=== PATIENT | female | born 1995 | race Caucasian/White ===

== ENCOUNTER 2016-05-12 13:37 | Emergency (ER) | payer MEDICAID, SELFPAY ==
[~2016-05-12 13:37] MED LIST: BUSP5TA PO; ERRI0.35 PO; ESCI10TA2 PO; GABA300C3 PO; HYDR-4274 PO; LEXA1TAB PO; No Home Meds; OMEP20CA3 PO; PRIL40CA PO; PROM25TA PO; RISP1TAB41 PO; TRAZ50TA4 PO; TRAZO50TA PO; ZANTTAB PO
--- NOTE | 2016-05-12 14:38 | ECGEPIP ---
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
[2016-05-12 15:16] LABS: MEAN CORPUSCULAR HEMOGLOBIN 28.3 pg (27.0-33.0); MEAN CORPUSCULAR HGB CONC 33.3 g/dl (32.0-36.5); MEAN CORPUSCULAR VOLUME 84.9 fl (80.0-96.0); RED CELL DISTRIBUTION WIDTH 13.4 % (11.5-14.5); WHITE BLOOD COUNT 8.3 K/mm3 (4.0-10.0)
[2016-05-12 15:34] LABS: CONTROL LINE HCG INT CTR LINE PRESENT
[2016-05-12 15:49] LABS: AMPHETAMINES LEVEL URINE POSITIVE (NEGATIVE); BENZODIAZEPINES URINE NEGATIVE (NEGATIVE); COCAINE METABOLITE URINE POSITIVE (NEGATIVE); CONTROL LINE INT CTR LINE PRESENT; METHADONE URINE NEGATIVE (NEGATIVE); OPIATES URINE POSITIVE (NEGATIVE); TRICYCLIC ANTIDEPRESS URINE NEGATIVE (NEGATIVE)
[2016-05-12 15:51] LABS: CONTROL LINE UCG INT CTR LINE PRESENT
[2016-05-12 15:53] LABS: ALBUMIN 3.5 GM/DL (3.2-5.2); ALBUMIN/GLOBULIN RATIO 1.06 (1.00-1.93); ALKALINE PHOSPHATASE 74 U/L (45-117); ALT/SGPT 19 U/L (12-78); ANION GAP 9 MEQ/L (8-16); AST/SGOT 27 U/L (15-37); BILIRUBIN,DIRECT 0.1 MG/DL (0.0-0.2); BILIRUBIN,TOTAL 0.5 MG/DL (0.2-1.0); BLOOD UREA NITROGEN 12 MG/DL (7-18); CARBON DIOXIDE LEVEL 24 MEQ/L (21-32); CHLORIDE LEVEL 105 MEQ/L (98-107); CREATININE FOR GFR 0.67 MG/DL (0.55-1.02); GLUCOSE, FASTING 73 MG/DL (70-105); POTASSIUM SERUM 3.9 MEQ/L (3.5-5.1); SODIUM LEVEL 138 MEQ/L (136-145); TOTAL PROTEIN 6.8 GM/DL (6.4-8.2)
--- NOTE | 2016-05-12 19:55 | EDDOCDS ---
Physician Documentation [facility] Name: Laura Velazquez Age: 21 yrs Sex: Female : 1995 Arrival Date: 05/12/2016 Time: 13:37 Bed 2 Private MD: Disposition: 05/12/16 19:38 Discharged to Home/Self Care. Impression: Cocaine abuse, Opioid abuse, Other stimulant abuse - amphetamine. - Condition is Stable. - Medication Reconciliation, Local Pharmacy Hours form. - Follow up: Referral list, As provided by PFS; When: Call to arrange an appointment; Reason: To establish care. - Problem is chronic. - Symptoms are unchanged. Historical: - Allergies: no known allergies; - Home Meds: 1. none - PMHx: Bipolar disorder; Substance Abuse; - PSHx: none; - Social history: Smoking status: Patient uses tobacco products, current some day smoker. No barriers to communication noted, The patient speaks fluent Turkmen. - Family history: Not pertinent. - : The pt / caregiver states he / she is not on anticoagulants. Home medication list is obtained from the patient. - Exposure Risk Screening:: None identified. 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 jc4 Vital Signs: 13:54 Pulse 69 MON; Pulse Ox 99% ; pml 13:54 BP 98 / 57 (auto/); pml 13:55 BP 98 / 57; Pulse 72; Resp 18; Temp 98.2(TE); Pulse Ox 100% on R/A; Weight 49.9 kg / ct3 110.01 lbs (M); 13:59 Pulse 76 MON; Pulse Ox 100% ; pml 13:59 BP 92 / 52 (auto/); pml 14:15 Pulse 75 MON; Pulse Ox 99% ; pml 14:15 BP 96 / 55 (auto/); pml 14:30 Pulse 75 MON; Pulse Ox 98% ; pml 14:30 BP 97 / 55 (auto/); pml 14:45 Pulse 75 MON; Pulse Ox 98% ; pml 14:45 BP 94 / 50 (auto/); pml 15:09 Pulse 75 MON; Pulse Ox 99% ; pml 15:09 BP 92 / 48 (auto/); pml 15:15 Pulse 76 MON; Pulse Ox 99% ; pml 15:15 BP 89 / 50 (auto/); pml 15:30 BP 93 / 54 (auto/); pml 15:32 Pulse 72 MON; Pulse Ox 100% ; pml 15:45 Pulse 73 MON; Pulse Ox 100% ; pml 15:45 BP 92 / 54 (auto/); pml 16:00 Pulse 74 MON; Pulse Ox 100% ; pml 16:00 BP 91 / 51 (auto/); pml 16:15 Pulse 74 MON; Pulse Ox 100% ; pml 16:15 BP 95 / 52 (auto/); pml 16:29 Pulse 73 MON; Pulse Ox 96% ; pml 16:30 BP 93 / 51 (auto/); pml 16:45 Pulse 78 MON; Pulse Ox 98% ; pml 16:45 BP 97 / 48 (auto/); pml 17:00 Pulse 81 MON; Pulse Ox 97% ; pml 17:00 BP 98 / 51 (auto/); pml 17:15 Pulse 87 MON; Pulse Ox 98% ; pml 17:15 BP 107 / 55 (auto/); pml 17:30 Pulse 85 MON; Pulse Ox 96% ; pml 17:30 BP 109 / 55 (auto/); pml 17:45 Pulse 84 MON; Pulse Ox 96% ; pml 17:45 BP 102 / 51 (auto/); pml 19:40 BP 100 / 48; Pulse 65; Resp 18; Temp 98.1(TE); Pulse Ox 97% on R/A; Pain 0/10; sindhu MDM: 13:47 Consult PFS/PSA/Wire Stitcher Operator ordered. sd1 13:47 Consult PFS/PSA/Wire Stitcher Operator: Patient's case requires discussion with on-call sd1 Psychiatrist ordered. 13:47 PSA/PFS to call Nursing Tag Clerk, to enter patient data on [place] Safe Act if patient sd1 involuntarily admitted or transferred for SI or HI ordered. 13:47 Cold Header/Pulse Ox/q 15 min VS ordered. sd1 13:47 Confirm accurate psychiatric medication list and times of last dosage ordered. sd1 13:47 Detain Pt Until Medically/PFS Cleared ordered. sd1 13:47 IV Saline Lock ordered. sd1 13:47 NS 0.9% 1000 ml IV at 250 mL/hr continuous ordered. sd1 13:47 Acetaminophen Level Ordered. EDMS 13:47 Basic Metabolic Profile Ordered. EDMS 13:47 Complete Blood Count Ordered. EDMS 13:47 Drug Eval Toxicology ED Only Ordered. EDMS 13:47 Ethyl Alcohol (ethanol) Ordered. EDMS 13:47 HCG,Serum Qualitative Ordered. EDMS 13:48 Liver Profile Ordered. EDMS 13:48 Salicylate Level Ordered. EDMS 13:48 Thyroid Stimulating Hormone Ordered. EDMS 13:48 Creatine Phosphokinase Ordered. EDMS 13:48 ECG WITH READING ER PHYS+CARDIAG ordered. EDMS 14:27 Financial registration complete. mpb 14:31 [facility] Payment Agreement was scanned into [employer] and attached to record. mpb 15:31 UCG- In Lab Ordered. EDMS 15:51 Complete Blood Count Reviewed. sd1 15:51 HCG,Serum Qualitative Reviewed. sd1 15:51 EKG-ADULT Reviewed. sd1 15:53 Drug Eval Toxicology ED Only Reviewed. sd1 15:53 UCG- In Lab Reviewed. sd1 17:14 Acetaminophen Level Reviewed. sd1 17:14 Salicylate Level Reviewed. sd1 17:14 Creatine Phosphokinase Reviewed. sd1 17:14 Basic Metabolic Profile Reviewed. sd1 17:14 Ethyl Alcohol (ethanol) Reviewed. sd1 17:14 HCG,Serum Qualitative Reviewed. sd1 17:14 Liver Profile Reviewed. sd1 17:14 Thyroid Stimulating Hormone Reviewed. sd1 19:15 Consult PFS/PSA/Wire Stitcher Operator complete. jfb 19:15 Consult PFS/PSA/Wire Stitcher Operator: Patient's case requires discussion with on-call b Psychiatrist complete. 19:15 PSA/PFS to call Nursing Tag Clerk, to enter patient data [place] Safe [place] if patient jfb involuntarily admitted or transferred for SI or HI complete. Administered Medications: 13:53 Drug: NS 0.9% 1000 ml [sodium chloride 0.9 % intravenous solution] Route: IV; Rate: 250 ja5 mL/hr; Site: left antecubital; Signatures: Dispatcher [employer] EDMN Mariam Senior MD MD sd1 Lena Mchugh, PSA PSA jfb Grecia Flores RN RN jc4 Jazzy Ansari RN RN Ron Ferguson DO DO cs11 Ayleen Romeo RN RN ko2 Heriberto Acosta, Reg Reg mpb Di Melo RN5 The chart was reviewed and I authenticate all verbal orders and agree with the evaluation and treatment provided.Attachments: 14:31 [facility] Payment Agreement mpb MTDD
--- NOTE | 2016-05-12 19:55 | EDDOCDS ---
Nurse's Notes [facility] Name: Laura Velazquez Age: 21 yrs Sex: Female : 1995 Arrival Date: 05/12/2016 Time: 13:37 Bed 2 Private MD: Diagnosis: Cocaine abuse;Opioid abuse;Other stimulant abuse-amphetamine Presentation: 05/12 13:40 Presenting complaint: EMS states: that they were called to [facility] for jc4 patient. Allegedly patient was found slumped over at table. Presenting complaint: Patient states: "I'm just really tired and I haven't slept. I was at a friend's house" Denies any drug use today or yesterday. Suicide/Homicide risk assessment- Unable to assess, the patient has an altered level of consciousness. 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 Transition of care: patient was not received from another setting of care. Care prior to arrival: See EMS report. 13:40 Acuity: SILVIA Level 2 4 13:40 Method Of Arrival: Ambulance [facility] 19:52 Adult Sepsis Screening: The patient does not have new or worsening altered mentation. ko2 Patient's respiratory rate is less than 22. Systolic blood pressure is greater than 100. Patient has a qSOFA score of 0- Negative Sepsis Screen. Triage Assessment: 13:45 General: Appears distressed. Pain: Location: bilateral thighs. The patient is triaged jc4 at the bedside. See Assessment in Nurses Notes section of ED record. 19:54 Pt Declines HIV testing. 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 none - PMHx: Bipolar disorder; Substance Abuse; - PSHx: none; - Social history: Smoking status: Patient uses tobacco products, current some day smoker. No barriers to communication noted, The patient speaks fluent Greek. - Family history: Not pertinent. - : The pt / caregiver states he / she is not on anticoagulants. Home medication list is obtained from the patient. - Exposure Risk Screening:: None identified. Screenin:08 Screening information is obtained from the patient. Fall risk: At risk due to apparent pml chemical impairment. Assistance ADL's: requires no assistance with activities of daily living. Abuse/DV Screen: The patient / caregiver reports he/she is: not in a situation that causes fear, pain or injury. Nutritional screening: No deficits noted. Advance Directives: Currently, there is no health care proxy. home support is adequate. Assessment: 14:08 General: Appears slender, well groomed, Behavior is appropriate for age, cooperative, pml drowsy, flat. Pain: Location: right leg and left leg. Neurological: Level of Consciousness is listless, obeys commands, Oriented to person, place, time, Pupils are PERRLA, constricted. Cardiovascular: Capillary refill < 3 seconds Rhythm is sinus rhythm No ectopy. Respiratory: Airway is patent Respiratory effort is even, unlabored. GI: Abdomen is non- distended. Derm: Skin is pale, multiple sites across arms, thighs and hands of irritation and open wounds in various stages of healing. none appear infected, all approx 1-3cm in diameter, circular. multiple sites areas of tract stewart noted to bilateral arms and hands. 15:30 General: resting on stretcher, listless. resps unlabored, equal rise and fall. skin pml p/w/d. awakens to painful stimuli. 16:31 General: Appears well groomed, to be sleeping. Behavior is cooperative, drowsy. pml Neurological: Level of Consciousness is listless, obeys commands, Oriented to person, place, time. Cardiovascular: Capillary refill < 3 seconds Rhythm is sinus rhythm No ectopy. Respiratory: Airway is patent Respiratory effort is even, unlabored. Derm: Skin is pale. 17:51 General: resting on stretcher, eyes closed, sleeping, awakens to painful stimuli. resps pml unlabored, skin p/w/d. sinus rhythm without ectopy. . 18:49 General: Appears slender, Behavior is cooperative, drowsy. Neurological: Level of pml Consciousness is obeys commands, Oriented to person, place, time. Cardiovascular: Capillary refill < 3 seconds Rhythm is sinus rhythm No ectopy. Derm: Skin is pale. 19:33 General: Appears in no apparent distress, Behavior is appropriate for age, cooperative, ko2 drowsy, flat. Pain: Denies pain. Neurological: Level of Consciousness is awake, obeys commands. Respiratory: Airway is patent Respiratory effort is even, unlabored. Derm: Skin is pale. 19:51 General: Appears in no apparent distress, Behavior is cooperative. Neurological: Level ko2 of Consciousness is awake. Respiratory: Airway is patent Respiratory effort is even, unlabored. Derm: Skin is pale. Social Work Consult: 19:37 Social Work Note: Woke PT who was clearly startled and unsure of where she is. PT jfb denies memory of being in [facility] or being brought to ED. Last memory was she was walking down the street and she had already gotten hi. PT continues to state "This is crazy" having a hard time accepting what had happened. PT states that she has been working with [employer] and was going there tomorrow so she had already planned not to use anymore. PT denies SI/HI or hallucinations. Per PT's grandmother PT's parents have turned their back on her long ago and grandma has been the only one there for her. PT has been staying with her boyfriend who is much older but a healthy influence but they had an argument and PT went to grandmother's house. saw the signs that PT has used meth and called her out and PT ended up leaving. concerned for PT's drug use but denies that she has ever know her to be suicidal. Vital Signs: 13:54 Pulse 69 MON; Pulse Ox 99% ; pml 13:54 BP 98 / 57 (auto/); pml 13:55 BP 98 / 57; Pulse 72; Resp 18; Temp 98.2(TE); Pulse Ox 100% on R/A; Weight 49.9 kg (M); ct3 13:59 Pulse 76 MON; Pulse Ox 100% ; pml 13:59 BP 92 / 52 (auto/); pml 14:15 Pulse 75 MON; Pulse Ox 99% ; pml 14:15 BP 96 / 55 (auto/); pml 14:30 Pulse 75 MON; Pulse Ox 98% ; pml 14:30 BP 97 / 55 (auto/); pml 14:45 Pulse 75 MON; Pulse Ox 98% ; pml 14:45 BP 94 / 50 (auto/); pml 15:09 Pulse 75 MON; Pulse Ox 99% ; pml 15:09 BP 92 / 48 (auto/); pml 15:15 Pulse 76 MON; Pulse Ox 99% ; pml 15:15 BP 89 / 50 (auto/); pml 15:30 BP 93 / 54 (auto/); pml 15:32 Pulse 72 MON; Pulse Ox 100% ; pml 15:45 Pulse 73 MON; Pulse Ox 100% ; pml 15:45 BP 92 / 54 (auto/); pml 16:00 Pulse 74 MON; Pulse Ox 100% ; pml 16:00 BP 91 / 51 (auto/); pml 16:15 Pulse 74 MON; Pulse Ox 100% ; pml 16:15 BP 95 / 52 (auto/); pml 16:29 Pulse 73 MON; Pulse Ox 96% ; pml 16:30 BP 93 / 51 (auto/); pml 16:45 Pulse 78 MON; Pulse Ox 98% ; pml 16:45 BP 97 / 48 (auto/); pml 17:00 Pulse 81 MON; Pulse Ox 97% ; pml 17:00 BP 98 / 51 (auto/); pml 17:15 Pulse 87 MON; Pulse Ox 98% ; pml 17:15 BP 107 / 55 (auto/); pml 17:30 Pulse 85 MON; Pulse Ox 96% ; pml 17:30 BP 109 / 55 (auto/); pml 17:45 Pulse 84 MON; Pulse Ox 96% ; pml 17:45 BP 102 / 51 (auto/); pml 19:40 BP 100 / 48; Pulse 65; Resp 18; Temp 98.1(TE); Pulse Ox 97% on R/A; Pain 0/10; sindhu Vitals: 13:45 Log In Time N/A - ambulance arrival. jc4 16:[address] [facility] ED Course: 13:38 Patient visited by Martha Walden PCA. ar3 13:38 Patient moved to Waiting ar3 13:39 Jazzy Ansari RN is Primary Nurse. ar3 13:39 Mariam Senior MD is Attending Physician. sd1 13:39 Patient moved to 2 ar3 13:43 Triage Initiated jc4 13:46 Patient visited by Mariam Senior MD. sd1 13:50 Inserted saline lock: 18 gauge The patient tolerated the procedure well. done by Josh Ansari RN. 13:55 Patient has correct armband on for positive identification. Placed in gown. Placed in ct3 psych safe attire. Call light in reach. Side rails up X2. playground monitor on. Pulse ox on. NIBP on. 14:08 The patient / caregiver is instructed regarding the plan of care and ED course. pml 14:09 EKG done. (by ED staff). Reviewed by Mariam Senior MD. lr2 14:12 Patient visited by Jazzy Ansari RN. pml 14:31 [facility] Payment Agreement was scanned into [employer] and attached to record. mpb 14:47 EKG-ADULT Returned. EDMS 15:30 Patient visited by Jazzy Ansari RN. pml 16:32 Patient visited by Jazzy Ansari,HARITHA. pml 17:42 Patient visited by Henrietta Escamilla PCA. ct3 17:52 Patient visited by Jazzy Ansari,HARITHA. pml 18:49 Patient visited by Jazzy Ansari RN. pml 18:54 Attending Physician role handed off by Mariam Senior MD cs11 18:54 Ron Sandy DO is Attending Physician. cs11 19:33 Patient visited by Ayleen Romeo RN. ko2 19:34 Ayleen Romeo RN is Primary Nurse. ko2 19:34 Primary Nurse role handed off by Jazzy Ansari RN ko2 19:36 Referral list, As provided by PFS is Referral Physician. cs11 19:41 Patient visited by Donya Rudd PCA. sindhu 19:52 Discontinued lock intact, bleeding controlled, pressure dressing applied, No ko2 redness/swelling at site. No procedures done that require assistance. Administered Medications: 13:53 Drug: NS 0.9% 1000 ml [sodium chloride 0.9 % intravenous solution] Route: IV; Rate: 250 ja5 mL/hr; Site: left antecubital; RT: 17:40 ABG's drawn from left radial artery allens test done and positive pressure held for 5 rs5 minutes no bleeding noted pressure bandage applied specimen sent pt. tolerated well. Suctioned orally with [place] by respiratory therapist thin white sputum. Initial Med Neb Given as ordered Patient tolerated procedure well without adverse effect. Order Results: Lab Order: Acetaminophen Level; SPEC'M 05/12/16 15:06 Test: ACETAMINOPHEN LEVEL; Value: < 2.0; Range: 10.0-30.0; Abnormal: Below low normal; Units: UG/ML; Status: F Lab Order: Basic Metabolic Profile; SPEC'M 05/12/16 15:06 Test: GLUCOSE, FASTING; Value: 73; Range: 70-105; Units: MG/DL; Status: F Test: BLOOD UREA NITROGEN; Value: 12; Range: 7-18; Units: MG/DL; Status: F Test: CREATININE FOR GFR; Value: 0.67; Range: 0.55-1.02; Units: MG/DL; Status: F Test: SODIUM LEVEL; Value: 138; Range: 136-145; Units: MEQ/L; Status: F Test: POTASSIUM SERUM; Value: 3.9; Range: 3.5-5.1; Units: MEQ/L; Status: F Test: CHLORIDE LEVEL; Value: 105; Range: 98-107; Units: MEQ/L; Status: F Test: CARBON DIOXIDE LEVEL; Value: 24; Range: 21-32; Units: MEQ/L; Status: F Test: ANION GAP; Value: 9; Range: 8-16; Units: MEQ/L; Status: F Test: CALCIUM LEVEL; Value: 9.0; Range: 8.5-10.1; Units: MG/DL; Status: F Lab Order: Complete Blood Count; SPEC'M 05/12/16 15:06 Test: WHITE BLOOD COUNT; Value: 8.3; Range: 4.0-10.0; Units: K/mm3; Status: F Test: RED BLOOD COUNT; Value: 4.78; Range: 4.00-5.40; Units: M/mm3; Status: F Test: HEMOGLOBIN; Value: 13.5; Range: 12.0-16.0; Units: g/dl; Status: F Test: HEMATOCRIT; Value: 40.5; Range: 36.0-47.0; Units: %; Status: F Test: MEAN CORPUSCULAR VOLUME; Value: 84.9; Range: 80.0-96.0; Units: fl; Status: F Test: MEAN CORPUSCULAR HEMOGLOBIN; Value: 28.3; Range: 27.0-33.0; Units: pg; Status: F Test: MEAN CORPUSCULAR HGB CONC; Value: 33.3; Range: 32.0-36.5; Units: g/dl; Status: F Test: RED CELL DISTRIBUTION WIDTH; Value: 13.4; Range: 11.5-14.5; Units: %; Status: F Test: PLATELET COUNT, AUTOMATED; Value: 336; Range: 150-450; Units: k/mm3; Status: F Lab Order: Drug Eval Toxicology ED Only; SPEC'M 05/12/16 15:28 Test: AMPHETAMINES LEVEL URINE; Value: POSITIVE; Range: NEGATIVE; Abnormal: Above high normal; Status: F Test: BARBITURATES URINE; Value: NEGATIVE; Range: NEGATIVE; Status: F Test: BENZODIAZEPINES URINE; Value: NEGATIVE; Range: NEGATIVE; Status: F Test: CANNABINOIDS URINE; Value: NEGATIVE; Range: NEGATIVE; Status: F Test: COCAINE METABOLITE URINE; Value: POSITIVE; Range: NEGATIVE; Abnormal: Above high normal; Status: F Test: METHADONE URINE; Value: NEGATIVE; Range: NEGATIVE; Status: F Test: OPIATES URINE; Value: POSITIVE; Range: NEGATIVE; Abnormal: Above high normal; Status: F Test: TRICYCLIC ANTIDEPRESS URINE; Value: NEGATIVE; Range: NEGATIVE; Status: F Test Note: ; ALL PRESUMPTIVE POSITIVE FINDINGS ARE UNCONFIRMED NORMAL VALUES THRESHOLD IN NG/ML AMPHETAMINES 1000 METHAMPHETAMINES 1000 BARBITURATES 300 BENZODIAZEPINES 300 CANNABINOIDS (THC) 50 COCAINE METABOLITE 300 METHADONE 300 OPIATES 300 PHENCYCLIDINE 25 TRICYCLIC ANTIDEPRESSANTS 1000 RESULTS ARE FOR MEDICAL PURPOSES ONLY. ALL URINE SPECIMENS WILL BE SAVED FOR 3 DAYS. IF CONFIRMATION OF A PRESUMPTIVE POSTIVE SCREEN RESULT IS DESIRED, CALL CHEMISTRY ([phone]) AND REQUEST URINE TO BE SENT TO REFERENCE LAB. FOR A LIST OF CLOSELY RELATED COMPOUNDS PLEASE CALL THE LAB. Lab Order: Ethyl Alcohol (ethanol); SPEC'M 05/12/16 15:06 Test: ETHYL ALCOHOL (ETHANOL); Value: < 0.003; Range: 0.000-0.010; Units: %; Status: F Lab Order: HCG,Serum Qualitative; SPEC'M 05/12/16 15:06 Test: HCG, SERUM QUALITATIVE; Value: NEGATIVE; Range: NEGATIVE; Status: F Lab Order: Liver Profile; SPEC'M 05/12/16 15:06 Test: AST/SGOT; Value: 27; Range: 15-37; Units: U/L; Status: F Test: ALT/SGPT; Value: 19; Range: 12-78; Units: U/L; Status: F Test: ALKALINE PHOSPHATASE; Value: 74; Range: 45-117; Units: U/L; Status: F Test: BILIRUBIN,TOTAL; Value: 0.5; Range: 0.2-1.0; Units: MG/DL; Status: F Test: BILIRUBIN,DIRECT; Value: 0.1; Range: 0.0-0.2; Units: MG/DL; Status: F Test: TOTAL PROTEIN; Value: 6.8; Range: 6.4-8.2; Units: GM/DL; Status: F Test: ALBUMIN; Value: 3.5; Range: 3.2-5.2; Units: GM/DL; Status: F Test: ALBUMIN/GLOBULIN RATIO; Value: 1.06; Range: 1.00-1.93; Status: F Lab Order: Salicylate Level; SPEC' 05/12/16 15:06 Test: SALICYLATE LEVEL; Value: 2.2; Range: 5.0-30.0; Abnormal: Below low normal; Units: MG/DL; Status: F Lab Order: Thyroid Stimulating Hormone; SPEC' 05/12/16 15:06 Test: THYROID STIMULATING HORMONE; Value: 1.550; Range: 0.463-3.98; Units: uIU/ML; Status: F Lab Order: Creatine Phosphokinase; SPEC' 05/12/16 15:06 Test: CPK CREATINE PHOSPHOKINASE; Value: 233; Range: 26-192; Abnormal: Above high normal; Units: U/L; Status: F Lab Order: UCG- In Lab; SPEC' 05/12/16 15:28 Test: URINE PREG TEST; Value: NEGATIVE; Range: NEGATIVE; Status: F Radiology Order: EKG-ADULT Test: EKG-ADULT REASON FOR EXAMINATION: OD; Stationary ECG Study; [facility] - ED; ; Test Date: 2016-05-12; Pat Name: LAURA VELAZQUEZ Department:; Room: -; Gender: F Insole Presser: ct; : 1995 Requested By: Mariam Senior; Order Number: [id number] Reading MD: Alexander Cisneros; Measurements; Intervals [place]; Rate: 77 P: 67; PA: 151 QRS: 58; QRSD: 85 T: 50; QT: 431; QTc: 489; Interpretive Statements; SINUS RHYTHM; ; Electronically Signed On 05-12-2016 14:37:51 EST by Alexander Cisneros; Outcome: 19:38 Discharge ordered by Provider. cs11 19:52 Discharge Assessment: Patient awake, alert and oriented x 3. No cognitive and/or ko2 functional deficits noted. Patient verbalized understanding of disposition instructions. patient administered narcotics - no. The following High Risk Discharge criteria are identified: None. Discharged to home ambulatory, with family. Condition: stable. Discharge instructions given to patient, Instructed on discharge instructions, follow up and referral plans. Demonstrated understanding of instructions, Pt was receptive of discharge instructions/ teaching. Property sent home with patient. 19:54 No special radiology studies were completed. ko2 19:54 Patient left the ED. ko2 Signatures: Dispatcher [employer] EDMS Mariam Senior MD MD sd1 Win, Martha, FITNESS ASSISTANT FITNESS ASSISTANT ar3 Jeison, Lena, PSA PSA Grecia Khan, RN RN jc4 Donya Rudd, FITNESS ASSISTANT FITNESS ASSISTANT sindhu Francine, Henrietta, FITNESS ASSISTANT FITNESS ASSISTANT ct3 Shree Light,RT RT rs5 Jazzy Ansari,RN RN Ron Ferguson, DO cs11 Ayleen RomeoRN RN ko2 Heriberto Acosta, Reg Reg Di Caputo,RN RN Vanessa Saucedo lr2 Corrections: (The following items were deleted from the chart) 19:45 19:36 Social Work Note: eddi montague MTDD
--- NOTE | 2016-05-14 20:55 | EDDOCDS ---
Physician Documentation [facility] Name: Laura Velazquez Age: 21 yrs Sex: Female : 1995 Arrival Date: 05/12/2016 Time: 13:37 Bed 2 Private MD: Disposition: 05/12/16 19:38 Discharged to Home/Self Care. Impression: Cocaine abuse, Opioid abuse, Other stimulant abuse - amphetamine. - Condition is Stable. - Medication Reconciliation, Local Pharmacy Hours form. - Follow up: Referral list, As provided by PFS; When: Call to arrange an appointment; Reason: To establish care. - Problem is chronic. - Symptoms are unchanged. Historical: - Allergies: no known allergies; - Home Meds: 1. none - PMHx: Bipolar disorder; Substance Abuse; - PSHx: none; - Social history: Smoking status: Patient uses tobacco products, current some day smoker. No barriers to communication noted, The patient speaks fluent Japanese. - Family history: Not pertinent. - : The pt / caregiver states he / she is not on anticoagulants. Home medication list is obtained from the patient. - Exposure Risk Screening:: None identified. BROADCAST METEOROLOGIST: 05/12 13:45 per patient last menses unknown [id number] Vital Signs: 13:54 Pulse 69 MON; Pulse Ox 99% ; pml 13:54 BP 98 / 57 (auto/); pml 13:55 BP 98 / 57; Pulse 72; Resp 18; Temp 98.2(TE); Pulse Ox 100% on R/A; Weight 49.9 kg / ct3 110.01 lbs (M); 13:59 Pulse 76 MON; Pulse Ox 100% ; pml 13:59 BP 92 / 52 (auto/); pml 14:15 Pulse 75 MON; Pulse Ox 99% ; pml 14:15 BP 96 / 55 (auto/); pml 14:30 Pulse 75 MON; Pulse Ox 98% ; pml 14:30 BP 97 / 55 (auto/); pml 14:45 Pulse 75 MON; Pulse Ox 98% ; pml 14:45 BP 94 / 50 (auto/); pml 15:09 Pulse 75 MON; Pulse Ox 99% ; pml 15:09 BP 92 / 48 (auto/); pml 15:15 Pulse 76 MON; Pulse Ox 99% ; pml 15:15 BP 89 / 50 (auto/); pml 15:30 BP 93 / 54 (auto/); pml 15:32 Pulse 72 MON; Pulse Ox 100% ; pml 15:45 Pulse 73 MON; Pulse Ox 100% ; pml 15:45 BP 92 / 54 (auto/); pml 16:00 Pulse 74 MON; Pulse Ox 100% ; pml 16:00 BP 91 / 51 (auto/); pml 16:15 Pulse 74 MON; Pulse Ox 100% ; pml 16:15 BP 95 / 52 (auto/); pml 16:29 Pulse 73 MON; Pulse Ox 96% ; pml 16:30 BP 93 / 51 (auto/); pml 16:45 Pulse 78 MON; Pulse Ox 98% ; pml 16:45 BP 97 / 48 (auto/); pml 17:00 Pulse 81 MON; Pulse Ox 97% ; pml 17:00 BP 98 / 51 (auto/); pml 17:15 Pulse 87 MON; Pulse Ox 98% ; pml 17:15 BP 107 / 55 (auto/); pml 17:30 Pulse 85 MON; Pulse Ox 96% ; pml 17:30 BP 109 / 55 (auto/); pml 17:45 Pulse 84 MON; Pulse Ox 96% ; pml 17:45 BP 102 / 51 (auto/); pml 19:40 BP 100 / 48; Pulse 65; Resp 18; Temp 98.1(TE); Pulse Ox 97% on R/A; Pain 0/10; sindhu MDM: 13:47 Consult PFS/PSA/Color Depositing Machine Tender ordered. sd1 13:47 Consult PFS/PSA/Color Depositing Machine Tender: Patient's case requires discussion with on-call sd1 Psychiatrist ordered. 13:47 PSA/PFS to call Nursing Trade Marker, to enter patient data on [place] Safe [place] if patient sd1 involuntarily admitted or transferred for SI or HI ordered. 13:47 Shank Stitcher/Pulse Ox/q 15 min VS ordered. sd1 13:47 Confirm accurate psychiatric medication list and times of last dosage ordered. sd1 13:47 Detain Pt Until Medically/PFS Cleared ordered. sd1 13:47 IV Saline Lock ordered. sd1 13:47 NS 0.9% 1000 ml IV at 250 mL/hr continuous ordered. sd1 13:47 Acetaminophen Level Ordered. EDMS 13:47 Basic Metabolic Profile Ordered. EDMS 13:47 Complete Blood Count Ordered. EDMS 13:47 Drug Eval Toxicology ED Only Ordered. EDMS 13:47 Ethyl Alcohol (ethanol) Ordered. EDMS 13:47 HCG,Serum Qualitative Ordered. EDMS 13:48 Liver Profile Ordered. EDMS 13:48 Salicylate Level Ordered. EDMS 13:48 Thyroid Stimulating Hormone Ordered. EDMS 13:48 Creatine Phosphokinase Ordered. EDMS 13:48 ECG WITH READING ER PHYS+CARDIAG ordered. EDMS 14:27 Financial registration complete. mpb 14:31 [place] [place] Payment Agreement was scanned into [employer]ok[employer] and attached to record. mpb 15:31 UCG- In Lab Ordered. EDMS 15:51 Complete Blood Count Reviewed. sd1 15:51 HCG,Serum Qualitative Reviewed. sd1 15:51 EKG-ADULT Reviewed. sd1 15:53 Drug Eval Toxicology ED Only Reviewed. sd1 15:53 UCG- In Lab Reviewed. sd1 17:14 Acetaminophen Level Reviewed. sd1 17:14 Salicylate Level Reviewed. sd1 17:14 Creatine Phosphokinase Reviewed. sd1 17:14 Basic Metabolic Profile Reviewed. sd1 17:14 Ethyl Alcohol (ethanol) Reviewed. sd1 17:14 HCG,Serum Qualitative Reviewed. sd1 17:14 Liver Profile Reviewed. sd1 17:14 Thyroid Stimulating Hormone Reviewed. sd1 19:15 Consult PFS/PSA/Color Depositing Machine Tender complete. jfb 19:15 Consult PFS/PSA/Color Depositing Machine Tender: Patient's case requires discussion with on-call jfb Psychiatrist complete. 19:15 PSA/PFS to call Nursing Trade Marker, to enter [place] data [place] if patient jfb involuntarily admitted or transferred for SI or HI complete. 05/13 12:14 T-Sheet-- Draft Copy was scanned into takokat and attached to record. gb 12:14 ECG/EKG was scanned into [employer]okat and attached to record. gb Administered Medications: 05/12 13:53 Drug: NS 0.9% 1000 ml [sodium chloride 0.9 % intravenous solution] Route: IV; Rate: 250 ja5 mL/hr; Site: left antecubital; Signatures: Dispatcher [employer] EDMS Mariam Senior MD MD sd1 Amaya Mayo, Reg Reg gb Lena Mchugh, PSA PSA jfb Grecia Flores RN RN jc4 Jazzy AnsariRN Ron Rivera DO DO cs11 Ayleen Romeo RN RN christian2 Heriberto Acosta, Reg Reg mpb Di Melo RN ja5 The chart was reviewed and I authenticate all verbal orders and agree with the evaluation and treatment provided.Attachments: 14:31 [place] [place] Payment Agreement mpb 05/13 12:14 T-Sheet-- Draft Copy gb 12:14 ECG/EKG gb Chart Complete MTDD
--- NOTE | 2016-05-14 20:55 | EDDOCDS ---
Physician Documentation [facility] Name: Laura Velazquez Age: 21 yrs Sex: Female : 1995 Arrival Date: 05/12/2016 Time: 13:37 Bed 2 Private MD: Disposition: 05/12/16 19:38 Discharged to Home/Self Care. Impression: Cocaine abuse, Opioid abuse, Other stimulant abuse - amphetamine. - Condition is Stable. - Medication Reconciliation, Local Pharmacy Hours form. - Follow up: Referral list, As provided by PFS; When: Call to arrange an appointment; Reason: To establish care. - Problem is chronic. - Symptoms are unchanged. Historical: - Allergies: no known allergies; - Home Meds: 1. none - PMHx: Bipolar disorder; Substance Abuse; - PSHx: none; - Social history: Smoking status: Patient uses tobacco products, current some day smoker. No barriers to communication noted, The patient speaks fluent [place]. - Family history: Not pertinent. - : The pt / caregiver states he / she is not on anticoagulants. Home medication list is obtained from the patient. - Exposure Risk Screening:: None identified. 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: 05/12 13:45 per patient last menses unknown [email or web address] Vital Signs: 13:54 Pulse 69 MON; Pulse Ox 99% ; pml 13:54 BP 98 / 57 (auto/); pml 13:55 BP 98 / 57; Pulse 72; Resp 18; Temp 98.2(TE); Pulse Ox 100% on R/A; Weight 49.9 kg / ct3 110.01 lbs (M); 13:59 Pulse 76 MON; Pulse Ox 100% ; pml 13:59 BP 92 / 52 (auto/); pml 14:15 Pulse 75 MON; Pulse Ox 99% ; pml 14:15 BP 96 / 55 (auto/); pml 14:30 Pulse 75 MON; Pulse Ox 98% ; pml 14:30 BP 97 / 55 (auto/); pml 14:45 Pulse 75 MON; Pulse Ox 98% ; pml 14:45 BP 94 / 50 (auto/); pml 15:09 Pulse 75 MON; Pulse Ox 99% ; pml 15:09 BP 92 / 48 (auto/); pml 15:15 Pulse 76 MON; Pulse Ox 99% ; pml 15:15 BP 89 / 50 (auto/); pml 15:30 BP 93 / 54 (auto/); pml 15:32 Pulse 72 MON; Pulse Ox 100% ; pml 15:45 Pulse 73 MON; Pulse Ox 100% ; pml 15:45 BP 92 / 54 (auto/); pml 16:00 Pulse 74 MON; Pulse Ox 100% ; pml 16:00 BP 91 / 51 (auto/); pml 16:15 Pulse 74 MON; Pulse Ox 100% ; pml 16:15 BP 95 / 52 (auto/); pml 16:29 Pulse 73 MON; Pulse Ox 96% ; pml 16:30 BP 93 / 51 (auto/); pml 16:45 Pulse 78 MON; Pulse Ox 98% ; pml 16:45 BP 97 / 48 (auto/); pml 17:00 Pulse 81 MON; Pulse Ox 97% ; pml 17:00 BP 98 / 51 (auto/); pml 17:15 Pulse 87 MON; Pulse Ox 98% ; pml 17:15 BP 107 / 55 (auto/); pml 17:30 Pulse 85 MON; Pulse Ox 96% ; pml 17:30 BP 109 / 55 (auto/); pml 17:45 Pulse 84 MON; Pulse Ox 96% ; pml 17:45 BP 102 / 51 (auto/); pml 19:40 BP 100 / 48; Pulse 65; Resp 18; Temp 98.1(TE); Pulse Ox 97% on R/A; Pain 0/10; sindhu MDM: 13:47 Consult PFS/PSA/Tent Finisher ordered. sd1 13:47 Consult PFS/PSA/Tent Finisher: Patient's case requires discussion with on-call sd1 Psychiatrist ordered. 13:47 PSA/PFS to call Nursing Psychotherapist Social Worker, to enter [place] data [place] if patient sd1 involuntarily admitted or transferred for SI or HI ordered. 13:47 Refrigeration Operator/Pulse Ox/q 15 min VS ordered. sd1 13:47 Confirm accurate psychiatric medication list and times of last dosage ordered. sd1 13:47 Detain Pt Until Medically/PFS Cleared ordered. sd1 13:47 IV Saline Lock ordered. sd1 13:47 NS 0.9% 1000 ml IV at 250 mL/hr continuous ordered. sd1 13:47 Acetaminophen Level Ordered. EDMS 13:47 Basic Metabolic Profile Ordered. EDMS 13:47 Complete Blood Count Ordered. EDMS 13:47 Drug Eval Toxicology ED Only Ordered. EDMS 13:47 Ethyl Alcohol (ethanol) Ordered. EDMS 13:47 HCG,Serum Qualitative Ordered. EDMS 13:48 Liver Profile Ordered. EDMS 13:48 Salicylate Level Ordered. EDMS 13:48 Thyroid Stimulating Hormone Ordered. EDMS 13:48 Creatine Phosphokinase Ordered. EDMS 13:48 ECG WITH READING ER PHYS+CARDIAG ordered. EDMS 14:27 Financial registration complete. mpb 14:31 [place] Payment Agreement was scanned into [employer] and attached to record. mpb 15:31 UCG- In Lab Ordered. EDMS 15:51 Complete Blood Count Reviewed. sd1 15:51 HCG,Serum Qualitative Reviewed. sd1 15:51 EKG-ADULT Reviewed. sd1 15:53 Drug Eval Toxicology ED Only Reviewed. sd1 15:53 UCG- In Lab Reviewed. sd1 17:14 Acetaminophen Level Reviewed. sd1 17:14 Salicylate Level Reviewed. sd1 17:14 Creatine Phosphokinase Reviewed. sd1 17:14 Basic Metabolic Profile Reviewed. sd1 17:14 Ethyl Alcohol (ethanol) Reviewed. sd1 17:14 HCG,Serum Qualitative Reviewed. sd1 17:14 Liver Profile Reviewed. sd1 17:14 Thyroid Stimulating Hormone Reviewed. sd1 19:15 Consult PFS/PSA/Tent Finisher complete. jfb 19:15 Consult PFS/PSA/Tent Finisher: Patient's case requires discussion with on-call jfb Psychiatrist complete. 19:15 PSA/PFS to call Nursing Psychotherapist Social Worker, to enter [place] data [place] if patient jfb involuntarily admitted or transferred for SI or HI complete. 05/13 12:14 T-Sheet-- Draft Copy was scanned into [employer] and attached to record. gb 12:14 ECG/EKG was scanned into [employer] and attached to record. gb Administered Medications: 05/12 13:53 Drug: NS 0.9% 1000 ml [sodium chloride 0.9 % intravenous solution] Route: IV; Rate: 250 ja5 mL/hr; Site: left antecubital; Signatures: Dispatcher [employer] EDMS Mariam Senior MD MD sd1 Amaya Mayo, Reg Reg gb Lena Mchugh, PSA PSA jfb Grecia Flores RN RN jc4 Jazzy AnsariRN Ron Rivera DO DO cs11 Ayleen Romeo RN RN christian2 Heriberto Acosta, Reg Reg mpb Di Melo RN ja5 The chart was reviewed and I authenticate all verbal orders and agree with the evaluation and treatment provided.Attachments: 14:31 [place] Payment Agreement mpb 05/13 12:14 T-Sheet-- Draft Copy gb 12:14 ECG/EKG gb Chart Complete MTDD
--- NOTE | 2016-05-14 20:55 | EDDOCDS ---
Nurse's Notes [facility] Name: Laura Smith Age: 21 yrs Sex: Female : 1995 Arrival Date: 05/12/2016 Time: 13:37 Bed 2 Private MD: Diagnosis: Cocaine abuse;Opioid abuse;Other stimulant abuse-amphetamine Presentation: 05/12 13:40 Presenting complaint: EMS states: that they were called to [facility] for jc4 patient. Allegedly patient was found slumped over at table. Presenting complaint: Patient states: "I'm just really tired and I haven't slept. I was at a friend's house" Denies any drug use today or yesterday. Suicide/Homicide risk assessment- Unable to assess, the patient has an altered level of consciousness. Status: Patient is not a facility service associate or dependent. Transition of care: patient was not received from another setting of care. Care prior to arrival: See EMS report. 13:40 Acuity: SILVIA Level 2 4 13:40 Method Of Arrival: Ambulance [facility] 19:52 Adult Sepsis Screening: The patient does not have new or worsening altered mentation. ko2 Patient's respiratory rate is less than 22. Systolic blood pressure is greater than 100. Patient has a qSOFA score of 0- Negative Sepsis Screen. Triage Assessment: 13:45 General: Appears distressed. Pain: Location: bilateral thighs. The patient is triaged jc4 at the bedside. See Assessment in Nurses Notes section of ED record. 19:54 Pt Declines HIV testing. 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 none - PMHx: Bipolar disorder; Substance Abuse; - PSHx: none; - Social history: Smoking status: Patient uses tobacco products, current some day smoker. No barriers to communication noted, The patient speaks fluent Latvian. - Family history: Not pertinent. - : The pt / caregiver states he / she is not on anticoagulants. Home medication list is obtained from the patient. - Exposure Risk Screening:: None identified. Screenin:08 Screening information is obtained from the patient. Fall risk: At risk due to apparent pml chemical impairment. Assistance ADL's: requires no assistance with activities of daily living. Abuse/DV Screen: The patient / caregiver reports he/she is: not in a situation that causes fear, pain or injury. Nutritional screening: No deficits noted. Advance Directives: Currently, there is no health care proxy. home support is adequate. Assessment: 14:08 General: Appears slender, well groomed, Behavior is appropriate for age, cooperative, pml drowsy, flat. Pain: Location: right leg and left leg. Neurological: Level of Consciousness is listless, obeys commands, Oriented to person, place, time, Pupils are PERRLA, constricted. Cardiovascular: Capillary refill < 3 seconds Rhythm is sinus rhythm No ectopy. Respiratory: Airway is patent Respiratory effort is even, unlabored. GI: Abdomen is non- distended. Derm: Skin is pale, multiple sites across arms, thighs and hands of irritation and open wounds in various stages of healing. none appear infected, all approx 1-3cm in diameter, circular. multiple sites areas of tract stewart noted to bilateral arms and hands. 15:30 General: resting on stretcher, listless. resps unlabored, equal rise and fall. skin pml p/w/d. awakens to painful stimuli. 16:31 General: Appears well groomed, to be sleeping. Behavior is cooperative, drowsy. pml Neurological: Level of Consciousness is listless, obeys commands, Oriented to person, place, time. Cardiovascular: Capillary refill < 3 seconds Rhythm is sinus rhythm No ectopy. Respiratory: Airway is patent Respiratory effort is even, unlabored. Derm: Skin is pale. 17:51 General: resting on stretcher, eyes closed, sleeping, awakens to painful stimuli. resps pml unlabored, skin p/w/d. sinus rhythm without ectopy. . 18:49 General: Appears slender, Behavior is cooperative, drowsy. Neurological: Level of pml Consciousness is obeys commands, Oriented to person, place, time. Cardiovascular: Capillary refill < 3 seconds Rhythm is sinus rhythm No ectopy. Derm: Skin is pale. 19:33 General: Appears in no apparent distress, Behavior is appropriate for age, cooperative, ko2 drowsy, flat. Pain: Denies pain. Neurological: Level of Consciousness is awake, obeys commands. Respiratory: Airway is patent Respiratory effort is even, unlabored. Derm: Skin is pale. 19:51 General: Appears in no apparent distress, Behavior is cooperative. Neurological: Level ko2 of Consciousness is awake. Respiratory: Airway is patent Respiratory effort is even, unlabored. Derm: Skin is pale. Social Work Consult: 19:37 Social Work Note: Woke PT who was clearly startled and unsure of where she is. PT jfb denies memory of being in [facility] or being brought to ED. Last memory was she was walking down the street and she had already gotten hi. PT continues to state "This is crazy" having a hard time accepting what had happened. PT states that she has been working with [employer] and was going there tomorrow so she had already planned not to use anymore. PT denies SI/HI or hallucinations. Per PT's grandmother PT's parents have turned their back on her long ago and grandma has been the only one there for her. PT has been staying with her boyfriend who is much older but a healthy influence but they had an argument and PT went to grandmother's house. saw the signs that PT has used meth and called her out and PT ended up leaving. concerned for PT's drug use but denies that she has ever know her to be suicidal. Vital Signs: 13:54 Pulse 69 MON; Pulse Ox 99% ; pml 13:54 BP 98 / 57 (auto/); pml 13:55 BP 98 / 57; Pulse 72; Resp 18; Temp 98.2(TE); Pulse Ox 100% on R/A; Weight 49.9 kg (M); ct3 13:59 Pulse 76 MON; Pulse Ox 100% ; pml 13:59 BP 92 / 52 (auto/); pml 14:15 Pulse 75 MON; Pulse Ox 99% ; pml 14:15 BP 96 / 55 (auto/); pml 14:30 Pulse 75 MON; Pulse Ox 98% ; pml 14:30 BP 97 / 55 (auto/); pml 14:45 Pulse 75 MON; Pulse Ox 98% ; pml 14:45 BP 94 / 50 (auto/); pml 15:09 Pulse 75 MON; Pulse Ox 99% ; pml 15:09 BP 92 / 48 (auto/); pml 15:15 Pulse 76 MON; Pulse Ox 99% ; pml 15:15 BP 89 / 50 (auto/); pml 15:30 BP 93 / 54 (auto/); pml 15:32 Pulse 72 MON; Pulse Ox 100% ; pml 15:45 Pulse 73 MON; Pulse Ox 100% ; pml 15:45 BP 92 / 54 (auto/); pml 16:00 Pulse 74 MON; Pulse Ox 100% ; pml 16:00 BP 91 / 51 (auto/); pml 16:15 Pulse 74 MON; Pulse Ox 100% ; pml 16:15 BP 95 / 52 (auto/); pml 16:29 Pulse 73 MON; Pulse Ox 96% ; pml 16:30 BP 93 / 51 (auto/); pml 16:45 Pulse 78 MON; Pulse Ox 98% ; pml 16:45 BP 97 / 48 (auto/); pml 17:00 Pulse 81 MON; Pulse Ox 97% ; pml 17:00 BP 98 / 51 (auto/); pml 17:15 Pulse 87 MON; Pulse Ox 98% ; pml 17:15 BP 107 / 55 (auto/); pml 17:30 Pulse 85 MON; Pulse Ox 96% ; pml 17:30 BP 109 / 55 (auto/); pml 17:45 Pulse 84 MON; Pulse Ox 96% ; pml 17:45 BP 102 / 51 (auto/); pml 19:40 BP 100 / 48; Pulse 65; Resp 18; Temp 98.1(TE); Pulse Ox 97% on R/A; Pain 0/10; sindhu Vitals: 13:45 Log In Time N/A - ambulance arrival. jc4 16:32 ETCO2 43mmHg. [facility] ED Course: 13:38 Patient visited by Martha Walden PCA. ar3 13:38 Patient moved to Waiting ar3 13:39 Jazzy Ansari RN is Primary Nurse. ar3 13:39 Mariam Senior MD is Attending Physician. sd1 13:39 Patient moved to 2 ar3 13:43 Triage Initiated jc4 13:46 Patient visited by Mariam Senior MD. sd1 13:50 Inserted saline lock: 18 gauge The patient tolerated the procedure well. done by Josh Ansari RN. 13:55 Patient has correct armband on for positive identification. Placed in gown. Placed in ct3 psych safe attire. Call light in reach. Side rails up X2. front desk monitor on. Pulse ox on. NIBP on. 14:08 The patient / caregiver is instructed regarding the plan of care and ED course. pml 14:09 EKG done. (by ED staff). Reviewed by Mariam Senior MD. lr2 14:12 Patient visited by Jazzy Ansari RN. pml 14:31 [facility] Payment Agreement was scanned into mPortal and attached to record. mpb 14:47 EKG-ADULT Returned. EDMS 15:30 Patient visited by Jazzy Ansari RN. pml 16:32 Patient visited by Jazzy Ansari,HARITHA. pml 17:42 Patient visited by Henrietta Escamilla PCA. ct3 17:52 Patient visited by Jazzy Ansari,HARITHA. pml 18:49 Patient visited by Jazzy Ansari RN. pml 18:54 Attending Physician role handed off by Mariam Senior MD cs11 18:54 Ron Sandy DO is Attending Physician. cs11 19:33 Patient visited by Ayleen Romeo RN. ko2 19:34 Ayleen Romeo RN is Primary Nurse. ko2 19:34 Primary Nurse role handed off by Jazzy Ansari RN ko2 19:36 Referral list, As provided by PFS is Referral Physician. cs11 19:41 Patient visited by Donya Rudd PCA. sindhu 19:52 Discontinued lock intact, bleeding controlled, pressure dressing applied, No ko2 redness/swelling at site. No procedures done that require assistance. 05/13 12:14 T-Sheet-- Draft Copy was scanned into mPortal and attached to record. gb 12:14 ECG/EKG was scanned into mPortal and attached to record. gb Administered Medications: 05/12 13:53 Drug: NS 0.9% 1000 ml [sodium chloride 0.9 % intravenous solution] Route: IV; Rate: 250 ja5 mL/hr; Site: left antecubital; RT: 17:40 ABG's drawn from left radial artery allens test done and positive pressure held for 5 rs5 minutes no bleeding noted pressure bandage applied specimen sent pt. tolerated well. Suctioned orally with [place] by respiratory therapist thin white sputum. Initial Med Neb Given as ordered Patient tolerated procedure well without adverse effect. Order Results: Lab Order: Acetaminophen Level; SPEC'M 05/12/16 15:06 Test: ACETAMINOPHEN LEVEL; Value: < 2.0; Range: 10.0-30.0; Abnormal: Below low normal; Units: UG/ML; Status: F Lab Order: Basic Metabolic Profile; [facility] 05/12/16 15:06 Test: GLUCOSE, FASTING; Value: 73; Range: 70-105; Units: MG/DL; Status: F Test: BLOOD UREA NITROGEN; Value: 12; Range: 7-18; Units: MG/DL; Status: F Test: CREATININE FOR GFR; Value: 0.67; Range: 0.55-1.02; Units: MG/DL; Status: F Test: SODIUM LEVEL; Value: 138; Range: 136-145; Units: MEQ/L; Status: F Test: POTASSIUM SERUM; Value: 3.9; Range: 3.5-5.1; Units: MEQ/L; Status: F Test: CHLORIDE LEVEL; Value: 105; Range: 98-107; Units: MEQ/L; Status: F Test: CARBON DIOXIDE LEVEL; Value: 24; Range: 21-32; Units: MEQ/L; Status: F Test: ANION GAP; Value: 9; Range: 8-16; Units: MEQ/L; Status: F Test: CALCIUM LEVEL; Value: 9.0; Range: 8.5-10.1; Units: MG/DL; Status: F Lab Order: Complete Blood Count; [facility] 05/12/16 15:06 Test: WHITE BLOOD COUNT; Value: 8.3; Range: 4.0-10.0; Units: K/mm3; Status: F Test: RED BLOOD COUNT; Value: 4.78; Range: 4.00-5.40; Units: M/mm3; Status: F Test: HEMOGLOBIN; Value: 13.5; Range: 12.0-16.0; Units: g/dl; Status: F Test: HEMATOCRIT; Value: 40.5; Range: 36.0-47.0; Units: %; Status: F Test: MEAN CORPUSCULAR VOLUME; Value: 84.9; Range: 80.0-96.0; Units: fl; Status: F Test: MEAN CORPUSCULAR HEMOGLOBIN; Value: 28.3; Range: 27.0-33.0; Units: pg; Status: F Test: MEAN CORPUSCULAR HGB CONC; Value: 33.3; Range: 32.0-36.5; Units: g/dl; Status: F Test: RED CELL DISTRIBUTION WIDTH; Value: 13.4; Range: 11.5-14.5; Units: %; Status: F Test: PLATELET COUNT, AUTOMATED; Value: 336; Range: 150-450; Units: k/mm3; Status: F Lab Order: Drug Eval Toxicology ED Only; SPEC'M 05/12/16 15:28 Test: AMPHETAMINES LEVEL URINE; Value: POSITIVE; Range: NEGATIVE; Abnormal: Above high normal; Status: F Test: BARBITURATES URINE; Value: NEGATIVE; Range: NEGATIVE; Status: F Test: BENZODIAZEPINES URINE; Value: NEGATIVE; Range: NEGATIVE; Status: F Test: CANNABINOIDS URINE; Value: NEGATIVE; Range: NEGATIVE; Status: F Test: COCAINE METABOLITE URINE; Value: POSITIVE; Range: NEGATIVE; Abnormal: Above high normal; Status: F Test: METHADONE URINE; Value: NEGATIVE; Range: NEGATIVE; Status: F Test: OPIATES URINE; Value: POSITIVE; Range: NEGATIVE; Abnormal: Above high normal; Status: F Test: TRICYCLIC ANTIDEPRESS URINE; Value: NEGATIVE; Range: NEGATIVE; Status: F Test Note: ; ALL PRESUMPTIVE POSITIVE FINDINGS ARE UNCONFIRMED NORMAL VALUES THRESHOLD IN NG/ML AMPHETAMINES 1000 METHAMPHETAMINES 1000 BARBITURATES 300 BENZODIAZEPINES 300 CANNABINOIDS (THC) 50 COCAINE METABOLITE 300 METHADONE 300 OPIATES 300 PHENCYCLIDINE 25 TRICYCLIC ANTIDEPRESSANTS 1000 RESULTS ARE FOR MEDICAL PURPOSES ONLY. ALL URINE SPECIMENS WILL BE SAVED FOR 3 DAYS. IF CONFIRMATION OF A PRESUMPTIVE POSTIVE SCREEN RESULT IS DESIRED, CALL CHEMISTRY ([phone]) AND REQUEST URINE TO BE SENT TO REFERENCE LAB. FOR A LIST OF CLOSELY RELATED COMPOUNDS PLEASE CALL THE LAB. Lab Order: Ethyl Alcohol (ethanol); SPEC'M 05/12/16 15:06 Test: ETHYL ALCOHOL (ETHANOL); Value: < 0.003; Range: 0.000-0.010; Units: %; Status: F Lab Order: HCG,Serum Qualitative; SPEC'M 05/12/16 15:06 Test: HCG, SERUM QUALITATIVE; Value: NEGATIVE; Range: NEGATIVE; Status: F Lab Order: Liver Profile; SPEC'M 05/12/16 15:06 Test: AST/SGOT; Value: 27; Range: 15-37; Units: U/L; Status: F Test: ALT/SGPT; Value: 19; Range: 12-78; Units: U/L; Status: F Test: ALKALINE PHOSPHATASE; Value: 74; Range: 45-117; Units: U/L; Status: F Test: BILIRUBIN,TOTAL; Value: 0.5; Range: 0.2-1.0; Units: MG/DL; Status: F Test: BILIRUBIN,DIRECT; Value: 0.1; Range: 0.0-0.2; Units: MG/DL; Status: F Test: TOTAL PROTEIN; Value: 6.8; Range: 6.4-8.2; Units: GM/DL; Status: F Test: ALBUMIN; Value: 3.5; Range: 3.2-5.2; Units: GM/DL; Status: F Test: ALBUMIN/GLOBULIN RATIO; Value: 1.06; Range: 1.00-1.93; Status: F Lab Order: Salicylate Level; SPEC'M 05/12/16 15:06 Test: SALICYLATE LEVEL; Value: 2.2; Range: 5.0-30.0; Abnormal: Below low normal; Units: MG/DL; Status: F Lab Order: Thyroid Stimulating Hormone; SPEC'M 05/12/16 15:06 Test: THYROID STIMULATING HORMONE; Value: 1.550; Range: 0.463-3.98; Units: uIU/ML; Status: F Lab Order: Creatine Phosphokinase; SPEC'M 05/12/16 15:06 Test: CPK CREATINE PHOSPHOKINASE; Value: 233; Range: 26-192; Abnormal: Above high normal; Units: U/L; Status: F Lab Order: UCG- In Lab; SPEC'M 05/12/16 15:28 Test: URINE PREG TEST; Value: NEGATIVE; Range: NEGATIVE; Status: F Radiology Order: EKG-ADULT Test: EKG-ADULT REASON FOR EXAMINATION: OD; Stationary ECG Study; [facility] - ED; ; Test Date: 2016-05-12; Pat Name: LAURA SMITH Department:; Room: -; Gender: F 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 cs11 19:52 Discharge Assessment: Patient awake, alert and oriented x 3. No cognitive and/or ko2 functional deficits noted. Patient verbalized understanding of disposition instructions. patient administered narcotics - no. The following High Risk Discharge criteria are identified: None. Discharged to home ambulatory, with family. Condition: stable. Discharge instructions given to patient, Instructed on discharge instructions, follow up and referral plans. Demonstrated understanding of instructions, Pt was receptive of discharge instructions/ teaching. Property sent home with patient. 19:54 No special radiology studies were completed. ko2 19:54 Patient left the ED. ko2 Signatures: Dispatcher [employer] EDMS Mariam Senior MD MD sd1 Amaay Mayo, Reg Reg gb Win, Martha, SERVICE LIAISON REPRESENTATIVE SERVICE LIAISON REPRESENTATIVE ar3 Mchugh, Lena, PSA PSA jfb Grecia Flores, RN RN jc4 Donya Rudd, SERVICE LIAISON REPRESENTATIVE SERVICE LIAISON REPRESENTATIVE sindhu Francine, Henrietta, SERVICE LIAISON REPRESENTATIVE SERVICE LIAISON REPRESENTATIVE ct3 Shree Light,RT RT rs5 Jazzy Ansari,RN RN Ron Ferguson, DO cs11 Ayleen RomeoRN RN ko2 Heriberto Acosta, Reg Reg mpDi Fisher,RN RN Vanessa Saucedo lr2 Corrections: (The following items were deleted from the chart) 19:45 19:36 Social Work Note: jfb jfb Chart Complete MTDD
== END 2016-05-12 19:54 | disposition home or self-care (01) ==
LOC: M ED 13:37
DX: F19.10 Other psychoactive substance abuse, uncomplicated (principal); F31.9 Bipolar disorder, unspecified
CPT/HCPCS: 36415; 36600; 80048; 80076; 80306; 82550; 84443; 84703; 85027; 93005; 93041; 94640; 99285; G0480

== ENCOUNTER → 2016-05-13 | Outpatient (CLI) | payer MEDICAID | LOC: M OUTALCOH 14:49 | PROVIDERS: ATTEND Psychiatry & Neurology Psychiatry | DX: Z13.9 Encounter for screening, unspecified (principal); F11.20 Opioid dependence, uncomplicated ==

== ENCOUNTER → 2016-05-15 | Outpatient (CLI) | payer MEDICAID | LOC: M SMT 15:06 | PROVIDERS: ATTEND Psychiatry & Neurology Psychiatry | DX: F11.20 Opioid dependence, uncomplicated (principal) ==

== ENCOUNTER 2016-05-20 11:33 | Outpatient (RCR) | payer MEDICAID | END 2016-06-04 | LOC: M OUTALCOH 11:33 | PROVIDERS: ATTEND Psychiatry & Neurology Psychiatry | DX: F11.20 Opioid dependence, uncomplicated (principal) ==

== ENCOUNTER 2016-08-07 08:44 | Emergency (ER) | payer MEDICAID, OTHER ==
[~2016-08-07] VITALS: Ht 152.4 cm; Wt 45.4 kg
[~2016-08-07 08:44] MED LIST changes: +GABA-282 PO; -GABA300C3 PO
[2016-08-07] MEDS ORDERED: PROMETHAZINE INJ 25 MG/ML VIAL (J2550) IV ONE (09:15)
[2016-08-07] MEDS ORDERED: NS 1,000 ML IV ONE ×2 (09:15→10:15)
[2016-08-07] MEDS ORDERED: FAMOTIDINE IV BAG 20 MG in APPROPRIATE DILUENT 1 EA IV ONE (09:15)
[2016-08-07 09:45] LABS: CONTROL LINE HCG INT CTR LINE PRESENT
[2016-08-07 09:48] LABS: DIFF SLIDE NUMBER 147; MEAN CORPUSCULAR HEMOGLOBIN 28.2 pg (27.0-33.0); MEAN CORPUSCULAR HGB CONC 33.9 g/dl (32.0-36.5); MEAN CORPUSCULAR VOLUME 83.2 fl (80.0-96.0); PLATELET COUNT, AUTOMATED 309 k/mm3 (150-450); RED CELL DISTRIBUTION WIDTH 13.1 % (11.5-14.5)
[2016-08-07 09:51] LABS: ALBUMIN 3.4 GM/DL (3.2-5.2); ALBUMIN/GLOBULIN RATIO 0.81 (1.00-1.93); ALKALINE PHOSPHATASE 159 U/L (45-117); ALT/SGPT 39 U/L (12-78); ANION GAP 13 MEQ/L (8-16); AST/SGOT 54 U/L (15-37); BILIRUBIN,DIRECT 0.2 MG/DL (0.0-0.2); BILIRUBIN,TOTAL 0.7 MG/DL (0.2-1.0); BLOOD UREA NITROGEN 20 MG/DL (7-18); CALCIUM LEVEL 8.6 MG/DL (8.5-10.1); CARBON DIOXIDE LEVEL 23 MEQ/L (21-32); CHLORIDE LEVEL 99 MEQ/L (98-107); CREATININE FOR GFR 1.25 MG/DL (0.55-1.02); GLUCOSE, FASTING 111 MG/DL (70-105); SODIUM LEVEL 135 MEQ/L (136-145); TOTAL PROTEIN 7.6 GM/DL (6.4-8.2)
[2016-08-07 10:05] LABS: WHITE BLOOD COUNT 33.2 K/mm3 (4.0-10.0)
[2016-08-07 10:27] LABS: BANDS 5 % (< 11); TOXIC VACUOLATION 1+
[2016-08-07 10:28] LABS: ANISOCYTOSIS 1+; MICROCYTOSIS 1+
[2016-08-07 10:33] VITALS: BP 115/67
[2016-08-07] MEDS ORDERED: ISOVUE-370 76% 100ML VIAL (Q9967) As Ordered ONE (10:34)
--- NOTE | 2016-08-07 10:55 | REP ---
ABDOMINAL SERIES: Right lateral decubitus and supine films of the abdomen and pelvis demonstrate no evidence of free air or bowel obstruction. No dilated small bowel loops are seen. Mild scattered fecal material are seen throughout the colon. No abnormal calcifications are seen in the abdomen or pelvis. An accompanying view of the chest demonstrates mild linear discoid atelectasis bilaterally without evidence of consolidative infiltrate. The cardiomediastinal silhouette is unremarkable. IMPRESSION: No free air or obstruction. Signed by Jeremie Cross MD 08/07/2016 04:46 P
[2016-08-07] MEDS ORDERED: KETOROLAC 30 MG/ML VIAL (J1885) IV ONE (11:00)
[2016-08-08] MEDS ORDERED: AMOX500C PO (17:07)
[2016-08-08] MEDS ORDERED: NAPR500T PO (17:07)
== END 2016-08-07 11:10 | disposition left against medical advice (07) ==
LOC: EDBD 08:44 → M ED 09:02
DX: F19.10 Other psychoactive substance abuse, uncomplicated (principal); Z53.21 Procedure and treatment not carried out due to patient leaving prior to being seen by health care provider

== ENCOUNTER 2016-08-08 15:56 | Emergency (ER) | payer OTHER ==
[~2016-08-08] VITALS: Ht 152.4 cm; Wt 45.4 kg
[2016-08-08] MEDS ORDERED: NAPR500T PO (17:07)
[2016-08-08] MEDS ORDERED: AMOX500C PO (17:07)
[2016-08-08 17:08] VITALS: BP 100/63
[2016-08-08] MEDS ORDERED: NAPROXEN 250 MG TAB PO ONE (17:15)
[2016-08-08] MEDS ORDERED: AMOXICILLIN 500 MG CAP PO ONE (17:15)
== END 2016-08-08 17:23 | disposition home or self-care (01) ==
LOC: M ED 17:19
DX: J02.9 Acute pharyngitis, unspecified (principal); B19.20 Unspecified viral hepatitis C without hepatic coma; Z86.59 Personal history of other mental and behavioral disorders

== ENCOUNTER 2016-08-26 22:20 | Emergency (ER) | payer OTHER ==
[~2016-08-26] VITALS: Ht 152.4 cm; Wt 44.0 kg
[~2016-08-26 22:20] MED LIST changes: +AMOX500C PO; +NAPR500T PO
[2016-08-26] MEDS ORDERED: KETOROLAC 30 MG/ML VIAL (J1885) IV ONE (23:00)
[2016-08-26 23:40] LABS: BASO # 0.1 K/mm3 (0.0-0.2); BASO % 0.6 % (0.0-1.0); EOS # 0.3 K/mm3 (0.0-0.50); LARGE UNSTAINED CELL # 0.4 K/mm3 (0.0-0.4); LARGE UNSTAINED CELL % 2.9 % (0.0-4.0); LYMPH % 44.6 % (24.0-44.0); MEAN CORPUSCULAR HEMOGLOBIN 27.8 pg (27.0-33.0); MEAN CORPUSCULAR HGB CONC 33.3 g/dl (32.0-36.5); MEAN CORPUSCULAR VOLUME 83.6 fl (80.0-96.0); MONO # 0.7 K/mm3 (0.0-0.8); MONO % 5.7 % (0.0-5.0); NEUTROPHILS # 5.5 K/mm3 (1.8-7.7); NEUTROPHILS % 44.1 % (36.0-66.0); PLATELET COUNT, AUTOMATED 719 k/mm3 (150-450); RED CELL DISTRIBUTION WIDTH 13.6 % (11.5-14.5); WHITE BLOOD COUNT 12.5 K/mm3 (4.0-10.0)
[2016-08-26 23:58] LABS: CONTROL LINE HCG INT CTR LINE PRESENT
[2016-08-27 00:06] LABS: ALBUMIN 3.6 GM/DL (3.2-5.2); ALKALINE PHOSPHATASE 117 U/L (45-117); ALT/SGPT 51 U/L (12-78); ANION GAP 6 MEQ/L (8-16); AST/SGOT 11 U/L (15-37); BILIRUBIN,DIRECT < 0.1 MG/DL (0.0-0.2); BILIRUBIN,TOTAL 0.2 MG/DL (0.2-1.0); BLOOD UREA NITROGEN 14 MG/DL (7-18); CALCIUM LEVEL 9.2 MG/DL (8.5-10.1); CARBON DIOXIDE LEVEL 28 MEQ/L (21-32); CHLORIDE LEVEL 107 MEQ/L (98-107); CREATININE FOR GFR 0.62 MG/DL (0.55-1.02); GLUCOSE, FASTING 94 MG/DL (70-105); POTASSIUM SERUM 3.8 MEQ/L (3.5-5.1); SODIUM LEVEL 141 MEQ/L (136-145); TOTAL PROTEIN 7.6 GM/DL (6.4-8.2)
[2016-08-27] MEDS ORDERED: ONDANSETRON 4MG/2ML VIAL (J2405) IV ONE ×2 (00:30→01:30)
[2016-08-27] MEDS: MORPHINE 4 MG/ML 1ML SYRINGE IV PRN ×2 (00:34→01:19)
[2016-08-27] MEDS ORDERED: GASTROGRAFIN SOLUTION 30ML (Q9963) As Ordered ONE (00:37)
[2016-08-27] MEDS ORDERED: ISOVUE-370 76% 100ML VIAL (Q9967) As Ordered ONE (01:11)
[2016-08-27 01:39] LABS: METHADONE URINE NEGATIVE (NEGATIVE)
--- NOTE | 2016-08-27 02:00 | REPUSA ---
CLINICAL HISTORY: Abdominal pain. TECHNIQUE: Multiple axial, sagittal and coronal CT images were obtained through the abdomen and pelvi s after administration of intravenous contrast material. COMMENTS: Comparison is made to the prior exam on 03/26/2016. The liver is of heterogeneous decreased attenuation without mass or defect. There is no intra or extr ahepatic biliary ductal dilatation. The spleen is normal. The gallbladder is within normal limits. Th e pancreas is of normal contour and attenuation characteristics. There is no evidence of adrenal mass . Both kidneys demonstrate prompt and equal nephrograms. The kidneys are normal in size, shape and conf iguration. There is no evidence of renal or ureteral mass. No renal or ureteral calculi are identifie d. There is no hydroureter or hydronephrosis. No evidence for appendicitis. There is no bowel wall thickening. No evidence for small or large matias l obstruction. There is no evidence of abdominal ascites or lymphadenopathy. There is no evidence of intrinsic or extrinsic bladder mass. There is no pelvic ascites or lymphadeno bess. Images of the lung bases show no evidence of pleural or parenchymal mass. There are no pleural effusi ons. The bony structures are free of lytic or blastic lesions. Multilevel degenerative changes are seen in volving the thoracolumbar spine. Scattered calcifications are seen involving the aorta and major bran ches compatible with atherosclerosis. IMPRESSION: Heterogeneous fatty liver infiltration. Fluid-filled bowels. Nonspecific finding which can be secondary to ileus/enteritis. Findings were not present on prior exam. Thank you for your kind referral of this patient.
[2016-08-27] MEDS ORDERED: GI COCKTAIL 50ML BTL(HYOSCYAMINE/MAALOX/LIDOCAINE VISCOUS)(1:3:1) PO ONE (02:15)
[2016-08-27] MEDS ORDERED: ZOFR4TAB3 PO (03:42)
[2016-08-27] MEDS ORDERED: OMEP40CA2 PO (03:42)
[2016-08-27 03:46] VITALS: BP 117/68
== END 2016-08-27 03:55 | disposition home or self-care (01) ==
LOC: M ED 23:16
DX: K76.0 Fatty (change of) liver, not elsewhere classified (principal); R10.9 Unspecified abdominal pain
CPT/HCPCS: 74177; 80048; 80076; 80306; 81001; 83690; 84703; 85025; 87040; 87086; 93041; 96374; 96375; 99285; J1885; J2405; Q9963; Q9967

== ENCOUNTER → 2017-03-13 | Outpatient (REF) | payer OTHER ==
[~2017-03-13] MED LIST changes: -HYDR-4274 PO; +HYDR50TA70 PO; +OMEP40CA2 PO; -RISP1TAB41 PO; +RISP1TAB42 PO; +TRAZ50TA11 PO; -TRAZ50TA4 PO; +ZOFR4TAB3 PO
== END ==
LOC: M SFHCPLAZ 11:57
PROVIDERS: ATTEND Family Medicine
DX: R30.0 Dysuria (principal)

== ENCOUNTER → 2017-03-26 | Outpatient (CLI) | payer OTHER ==
[~2017-03-26] MED LIST changes: +CLEO300C2 PO
[2017-04-01 08:06] LABS: HEPATITIS C QUANTITATION HCV Not Detected IU/mL (.)
== END ==
LOC: M SMT 14:29
PROVIDERS: ATTEND Family Medicine
DX: B19.20 Unspecified viral hepatitis C without hepatic coma (principal)

== ENCOUNTER 2017-04-02 18:10 | Emergency (ER) | payer OTHER | END 2017-04-02 19:19 | disposition home or self-care (01) | LOC: M ED 18:10 | DX: L03.114 Cellulitis of left upper limb (principal); Z86.19 Personal history of other infectious and parasitic diseases; F17.200 Nicotine dependence, unspecified, uncomplicated | CPT/HCPCS: 99282 ==

== ENCOUNTER 2017-08-20 09:54 | Inpatient (IN) | payer OTHER ==
[2017-08-20] MEDS: DILUENT IV (10:30)
[2017-08-20] MEDS: NS IV (10:30)
[2017-08-20 10:47] LABS: BASO % 0.3 % (0.0-1.0); EOS % 0.3 % (0.0-3.0); HEMATOCRIT 45.9 % (36.0-47.0); HEMOGLOBIN 15.3 g/dl (12.0-15.5); IMMATURE GRANULOCYTE % 0.2 % (0-3.0); LYMPH # 1.2 10^3/uL (1.5-6.5); LYMPH % 11.4 % (24.0-44.0); MEAN CORPUSCULAR HEMOGLOBIN 27.9 pg (27.0-33.0); MEAN CORPUSCULAR HGB CONC 33.3 g/dl (32.0-36.5); MEAN CORPUSCULAR VOLUME 83.8 fl (80.0-96.0); MONO # 0.1 10^3/uL (0.0-0.8); NEUTROPHILS # 9.4 10^3/uL (1.8-7.7); NEUTROPHILS % 86.8 % (36.0-66.0); PLATELET COUNT, AUTOMATED 346 10^3/uL (150-450); RED BLOOD COUNT 5.48 10^6/uL (4.00-5.40); RED CELL DISTRIBUTION WIDTH 14.3 % (11.5-14.5); WHITE BLOOD COUNT 10.9 10^3/uL (4.0-10.0)
[2017-08-20 10:51] LABS: APPEARANCE, URINE HAZY (CLEAR); BACTERIA, URINE AUTO 1+ (NEGATIVE); BILIRUBIN, URINE AUTO NEGATIVE (NEGATIVE); BLOOD, URINE BLOOD NEGATIVE (NEGATIVE); COLOR, URINE YELLOW (YELLOW); GLUCOSE, URINE (UA) AUTO NEGATIVE (NEGATIVE); KETONE, URINE AUTO NEGATIVE (NEGATIVE); LEUKOCYTE ESTERASE, URINE AUTO NEGATIVE (NEGATIVE); MUCUS, URINE SMALL (NEGATIVE); NITRITE, URINE AUTO NEGATIVE (NEGATIVE); PROTEIN, URINE AUTO NEGATIVE (NEGATIVE); RBC, URINE AUTO 2 /HPF (0-3); SPECIFIC GRAVITY URINE AUTO 1.011 (1.002-1.035); SQUAMOUS EPITHELIAL CELL UR AU 7 /HPF (0-6); UROBILINOGEN, URINE AUTO 0.2 mg/dL (0.0-2.0); WBC, URINE AUTO 1 /HPF (0-3)
[2017-08-20] MEDS: MORPHINE 4 MG/ML 1ML VIAL/SYRINGE (J2270) IV (10:54)
[2017-08-20] MEDS: ONDANSETRON 4MG/2ML VIAL (J2405) IV (10:54)
[2017-08-20 10:55] LABS: CONTROL LINE HCG INT CTR LINE PRESENT; HCG, SERUM QUALITATIVE NEGATIVE (NEGATIVE)
[2017-08-20 11:05] LABS: LACTIC ACID SEPSIS PROTOCOL 1.6 MMOL/L (0.4-2.0)
[2017-08-20 11:08] LABS: ACETAMINOPHEN LEVEL < 2.0 UG/ML (10.0-30.0); ALBUMIN 3.8 GM/DL (3.2-5.2); ALBUMIN/GLOBULIN RATIO 1.03 (1.00-1.93); ALKALINE PHOSPHATASE 106 U/L (45-117); ALT/SGPT 21 U/L (12-78); ANION GAP 9 MEQ/L (8-16); AST/SGOT 21 U/L (7-37); BILIRUBIN,DIRECT 0.2 MG/DL (0.0-0.2); BILIRUBIN,TOTAL 0.7 MG/DL (0.2-1.0); BLOOD UREA NITROGEN 6 MG/DL (7-18); CALCIUM LEVEL 9.3 MG/DL (8.5-10.1); CARBON DIOXIDE LEVEL 24 MEQ/L (21-32); CHLORIDE LEVEL 106 MEQ/L (98-107); CPK CREATINE PHOSPHOKINASE 31 U/L (26-192); CREATININE FOR GFR 0.63 MG/DL (0.55-1.30); ETHYL ALCOHOL (ETHANOL) < 0.003 % (0.000-0.010); GLOMERULAR FILTRATION RATE > 60.0 (>60); GLUCOSE, FASTING 100 MG/DL (70-100); SALICYLATE LEVEL 1.8 MG/DL (5.0-30.0); SODIUM LEVEL 139 MEQ/L (136-145); TOTAL PROTEIN 7.5 GM/DL (6.4-8.2); TROPONIN I < 0.02 NG/ML (< 0.10)
[2017-08-20 11:10] LABS: AMPHETAMINES LEVEL URINE NEGATIVE (NEGATIVE); BARBITURATES URINE NEGATIVE (NEGATIVE); BENZODIAZEPINES URINE NEGATIVE (NEGATIVE); CANNABINOIDS URINE NEGATIVE (NEGATIVE); COCAINE METABOLITE URINE POSITIVE (NEGATIVE); METHADONE URINE NEGATIVE (NEGATIVE); OPIATES URINE POSITIVE (NEGATIVE); PHENCYCLIDINE URINE NEGATIVE (NEGATIVE)
[2017-08-20] MEDS: ACETAMINOPHEN 325 MG TAB PO (11:20)
[2017-08-20 11:24] LABS: CK-MB VALUE MASS < 1.0 NG/ML (<3.6); MB/CK RELATIVE INDEX 3.22 (< OR =4)
[2017-08-20 12:56] LABS: THYROID STIMULATING HORMONE 0.382 uIU/ML (0.358-3.740)
[2017-08-20] MEDS ORDERED: LIDOCAINE 2% W/EPIN INJ 20ML **PRES FREE As Ordered (13:56)
[2017-08-20] MEDS: LIDOCAINE 2% W/EPIN INJ 20ML **PRES FREE INJ (14:15)
[2017-08-20] MEDS: NS 1,000 ML IV ×2 (15:00→18:20)
[2017-08-20 15:36] LABS: CSF RBC < 2 10^3/uL (<2)
[2017-08-20 15:37] LABS: CSF RBC < 2 10^3/uL (<2)
[2017-08-20 15:40] LABS: GLUCOSE CSF 58 MG/DL (40-75)
[2017-08-20 15:40] LABS: APPEARANCE, CSF CLEAR (CLEAR); COLOR, CSF COLORLESS (COLORLESS); CSF DIFF IF INDICATED? NO (NO); CSF TUBE# CELL CNT TUBE 1; CSF TUBE# GLU TUBE 4; CSF TUBE# TP TUBE 2; CSF WBC 7 /uL (0-10); TOTAL PROTEIN,CSF 63.8 MG/DL (15-45)
[2017-08-20 15:41] LABS: APPEARANCE, CSF CLEAR (CLEAR); COLOR, CSF COLORLESS (COLORLESS); CSF TUBE# CELL CNT TUBE 4; CSF WBC 10 /uL (0-10)
[2017-08-20 15:42] LABS: CSF DIFF IF INDICATED? NO (NO)
[2017-08-20] MEDS: cefTRIAXone SOD 2 GM in D5W MINI-BAG PLUS 50 ML IV (16:26)
[2017-08-20] MEDS ORDERED: ACETAMINOPHEN TAB 650MG DOSE (2X325MG) PO (17:15)
[2017-08-20] MEDS: VANCOMYCIN HCL 1,000 MG, VIAL MATE ADAPTER 1 EACH in D5W 250 ML IV (17:30)
[2017-08-20] MEDS: NICOTINE 14 MG/24 HR TRANSDERMAL TD (18:10)
[2017-08-20 20:36] LABS: C REACTIVE PROTEIN QUANTITATIV 7.88 MG/DL (0.00-0.30)
[2017-08-20 20:57] LABS: ERYTHROCYTE SEDIMENTATION RATE 4 mm/hr (0-20)
[2017-08-21] MEDS ORDERED: VANCOMYCIN HCL 500 MG, VIAL MATE ADAPTER 1 EACH in D5W 250 ML IV (01:00)
[2017-08-21] MEDS ORDERED: cefTRIAXone SOD 2 GM in D5W MINI-BAG PLUS 50 ML IV (04:00)
[2017-08-22 10:40] LABS: HEPATITIS B SURFACE ANTIGEN NEGATIVE (NEGATIVE)
[2017-08-22 11:08] LABS: HEPATITIS B CORE ANTIBODY IGM NEGATIVE (NEGATIVE)
[2017-08-22 11:09] LABS: HEPATITIS A ANTIBODY IGM NEGATIVE (NEGATIVE); HIV 1&2 SCREEN CENTAUR NEGATIVE (NEGATIVE)
[2017-08-22 11:33] LABS: HEPATITIS C VIRUS ABY INDEX > 11.0 INDEX (<0.8)
== END 2017-08-20 19:30 | disposition left against medical advice (07) | DRG 722 ==
LOC: M ED 09:54 → M ED INP 16:57
PROC: 009U3ZX Drainage of Spinal Canal, Percutaneous Approach, Diagnostic (ICD-10-PCS; principal; 2017-08-20)
DX: R50.9 Fever, unspecified (principal); B18.2 Chronic viral hepatitis C; F41.9 Anxiety disorder, unspecified; F17.200 Nicotine dependence, unspecified, uncomplicated; F31.9 Bipolar disorder, unspecified

== ENCOUNTER 2017-08-20 21:39 | Emergency (ER) | payer OTHER | END 2017-08-20 22:33 | disposition left against medical advice (07) | LOC: M ED 21:39 | DX: G97.1 Other reaction to spinal and lumbar puncture (principal); F19.10 Other psychoactive substance abuse, uncomplicated; Z53.21 Procedure and treatment not carried out due to patient leaving prior to being seen by health care provider; F31.9 Bipolar disorder, unspecified; F17.200 Nicotine dependence, unspecified, uncomplicated; F14.10 Cocaine abuse, uncomplicated; F11.10 Opioid abuse, uncomplicated | CPT/HCPCS: 99283 ==

== ENCOUNTER 2017-09-10 10:41 | Inpatient (IN) | payer MEDICAID, OTHER ==
[2017-09-10] MEDS: NICOTINE 21MG/24HR 1 EA TRANSDERMAL TD (09:00)
[2017-09-10] MEDS: ONDANSETRON 4 MG ORAL DISINTEGRATING TAB (Q0162 PER 1MG) PO (11:57)
[2017-09-10] MEDS: LORazepam 1 MG TAB PO (11:57)
[2017-09-10 12:17] LABS: HEMATOCRIT 43.8 % (36.0-47.0); HEMOGLOBIN 14.3 g/dl (12.0-15.5); MEAN CORPUSCULAR HEMOGLOBIN 28.1 pg (27.0-33.0); MEAN CORPUSCULAR HGB CONC 32.6 g/dl (32.0-36.5); MEAN CORPUSCULAR VOLUME 86.1 fl (80.0-96.0); PLATELET COUNT, AUTOMATED 466 10^3/uL (150-450); RED BLOOD COUNT 5.09 10^6/uL (4.00-5.40); RED CELL DISTRIBUTION WIDTH 14.5 % (11.5-14.5); WHITE BLOOD COUNT 7.3 10^3/uL (4.0-10.0)
[2017-09-10 12:29] LABS: CONTROL LINE HCG INT CTR LINE PRESENT; HCG, SERUM QUALITATIVE NEGATIVE (NEGATIVE)
[2017-09-10 12:42] LABS: ACETAMINOPHEN LEVEL < 2.0 UG/ML (10.0-30.0); ALBUMIN 3.6 GM/DL (3.2-5.2); ALBUMIN/GLOBULIN RATIO 1.06 (1.00-1.93); ALKALINE PHOSPHATASE 79 U/L (45-117); ALT/SGPT 31 U/L (12-78); ANION GAP 5 MEQ/L (8-16); AST/SGOT 23 U/L (7-37); BILIRUBIN,DIRECT < 0.1 MG/DL (0.0-0.2); BILIRUBIN,TOTAL 0.2 MG/DL (0.2-1.0); BLOOD UREA NITROGEN 6 MG/DL (7-18); CALCIUM LEVEL 9.2 MG/DL (8.5-10.1); CARBON DIOXIDE LEVEL 29 MEQ/L (21-32); CHLORIDE LEVEL 108 MEQ/L (98-107); CREATININE FOR GFR 0.66 MG/DL (0.55-1.30); ETHYL ALCOHOL (ETHANOL) < 0.003 % (0.000-0.010); GLOMERULAR FILTRATION RATE > 60.0 (>60); GLUCOSE, FASTING 65 MG/DL (70-100); POTASSIUM SERUM 4.3 MEQ/L (3.5-5.1); SALICYLATE LEVEL 2.5 MG/DL (5.0-30.0); SODIUM LEVEL 142 MEQ/L (136-145)
[2017-09-10 14:18] LABS: AMPHETAMINES LEVEL URINE NEGATIVE (NEGATIVE); BARBITURATES URINE NEGATIVE (NEGATIVE); BENZODIAZEPINES URINE NEGATIVE (NEGATIVE); CANNABINOIDS URINE NEGATIVE (NEGATIVE); COCAINE METABOLITE URINE NEGATIVE (NEGATIVE); METHADONE URINE NEGATIVE (NEGATIVE); OPIATES URINE POSITIVE (NEGATIVE); PHENCYCLIDINE URINE NEGATIVE (NEGATIVE)
[2017-09-10] MEDS ORDERED: MAALOX 30 ML SUSP *UDC PO (14:45)
[2017-09-10] MEDS ORDERED: ACETAMINOPHEN TAB 650MG DOSE (2X325MG) PO (14:45)
[2017-09-10] MEDS ORDERED: MOM 30ML SUSPENSION UDC PO (14:45)
[2017-09-10] MEDS ORDERED: traZODone 50 MG TAB PO (14:45)
[2017-09-10] MEDS ORDERED: hydrOXYzine 50 MG TAB PO (20:00)
[2017-09-11] MEDS: NICOTINE 21MG/24HR 1 EA TRANSDERMAL TD (09:00)
[2017-09-11] MEDS ORDERED: BUPRENORPHINE/NALOXONE 8-2MG SUBLINGUAL TABLET(SUBOXONE) SL ×2 (11:30→17:00)
[2017-09-11] MEDS ORDERED: IBUPROFEN 400 MG TAB PO (11:30)
[2017-09-11] MEDS ORDERED: diphenhydrAMINE 25 MG CAP PO (11:30)
[2017-09-11] MEDS: cloNIDine 0.1 MG TAB PO (14:23)
[2017-09-11] MEDS: BUPRENORPHINE/NALOXONE 8-2MG SUBLINGUAL TABLET(SUBOXONE) SL (18:10)
[2017-09-12] MEDS: cloNIDine 0.1 MG TAB PO (06:26)
[2017-09-12] MEDS: BUPRENORPHINE/NALOXONE 8-2MG SUBLINGUAL TABLET(SUBOXONE) SL (09:00)
[2017-09-12] MEDS: NICOTINE 21MG/24HR 1 EA TRANSDERMAL TD (09:00)
[2017-09-12] MEDS ORDERED: BUPRENORPHINE/NALOXONE 8-2MG SUBLINGUAL TABLET(SUBOXONE) SL (09:00)
== END 2017-09-12 12:00 | disposition home or self-care (01) | DRG 897 ==
LOC: M ED 10:41 → M ED INP 14:35 → M PSY 17:40
DX: F11.24 Opioid dependence with opioid-induced mood disorder (principal); R45.851 Suicidal ideations; F15.10 Other stimulant abuse, uncomplicated; F16.10 Hallucinogen abuse, uncomplicated; F17.210 Nicotine dependence, cigarettes, uncomplicated

== ENCOUNTER 2018-03-04 07:35 | Emergency (ER) | payer OTHER, MEDICAID ==
[2018-03-04] MEDS: cloNIDine 0.1 MG TAB PO (08:38)
[2018-03-04 08:56] LABS: HEMATOCRIT 50.1 % (36.0-47.0); HEMOGLOBIN 16.9 g/dl (12.0-15.5); MEAN CORPUSCULAR HEMOGLOBIN 28.3 pg (27.0-33.0); MEAN CORPUSCULAR HGB CONC 33.7 g/dl (32.0-36.5); MEAN CORPUSCULAR VOLUME 83.9 fl (80.0-96.0); PLATELET COUNT, AUTOMATED 542 10^3/uL (150-450); RED BLOOD COUNT 5.97 10^6/uL (4.00-5.40); RED CELL DISTRIBUTION WIDTH 13.7 % (11.5-14.5); WHITE BLOOD COUNT 10.1 10^3/uL (4.0-10.0)
[2018-03-04] MEDS: ONDANSETRON 4 MG ORAL DISINTEGRATING TAB (Q0162 PER 1MG) PO (09:10)
[2018-03-04 09:20] LABS: CONTROL LINE HCG INT CTR LINE PRESENT; HCG, SERUM QUALITATIVE NEGATIVE (NEGATIVE)
[2018-03-04 09:25] LABS: ACETAMINOPHEN LEVEL < 2.0 UG/ML (10.0-30.0); ALBUMIN 4.5 GM/DL (3.2-5.2); ALKALINE PHOSPHATASE 106 U/L (45-117); ALT/SGPT 27 U/L (12-78); ANION GAP 11 MEQ/L (8-16); AST/SGOT 22 U/L (7-37); BILIRUBIN,DIRECT 0.1 MG/DL (0.0-0.2); BILIRUBIN,TOTAL 0.4 MG/DL (0.2-1.0); BLOOD UREA NITROGEN 19 MG/DL (7-18); CALCIUM LEVEL 10.2 MG/DL (8.5-10.1); CARBON DIOXIDE LEVEL 24 MEQ/L (21-32); CHLORIDE LEVEL 103 MEQ/L (98-107); CREATININE FOR GFR 0.77 MG/DL (0.55-1.30); ETHYL ALCOHOL (ETHANOL) < 0.003 % (0.000-0.010); GLOMERULAR FILTRATION RATE > 60.0 (>60); GLUCOSE, FASTING 116 MG/DL (70-100); POTASSIUM SERUM 3.8 MEQ/L (3.5-5.1); SODIUM LEVEL 138 MEQ/L (136-145); THYROID STIMULATING HORMONE 0.261 uIU/ML (0.358-3.740); TOTAL PROTEIN 8.6 GM/DL (6.4-8.2)
[2018-03-04 09:55] LABS: AMPHETAMINES LEVEL URINE NEGATIVE (NEGATIVE); BARBITURATES URINE NEGATIVE (NEGATIVE); BENZODIAZEPINES URINE NEGATIVE (NEGATIVE); CANNABINOIDS URINE NEGATIVE (NEGATIVE); COCAINE METABOLITE URINE NEGATIVE (NEGATIVE); METHADONE URINE NEGATIVE (NEGATIVE); OPIATES URINE POSITIVE (NEGATIVE); PHENCYCLIDINE URINE NEGATIVE (NEGATIVE)
[2018-03-04] MEDS: cloNIDine HCL 0.1 MG/24 HR PATCH TOP (10:55)
[2018-03-04 11:14] LABS: FREE T4 1.31 NG/DL (0.76-1.46)
== END 2018-03-04 12:53 | disposition home or self-care (01) ==
LOC: M ED 07:35
DX: F32.9 Major depressive disorder, single episode, unspecified (principal); F11.23 Opioid dependence with withdrawal; R45.851 Suicidal ideations; R11.10 Vomiting, unspecified; F19.10 Other psychoactive substance abuse, uncomplicated; F17.200 Nicotine dependence, unspecified, uncomplicated
CPT/HCPCS: Q0162

== ENCOUNTER → 2018-04-28 | Outpatient (CLI) | payer MEDICAID ==
[~2018-04-28] MED LIST changes: +CLONI1TA PO; -GABA-282 PO; +GABA-843 PO; +IBUP80TA PO; +NAPR-50 PO; -NAPR500T PO; +TRAZ-160 PO; -TRAZ50TA11 PO; +ZOFR4TAB14 PO; -ZOFR4TAB3 PO
== END ==
LOC: M OUTALCOH 08:11
PROVIDERS: ATTEND Psychiatry & Neurology Psychiatry
DX: Z13.9 Encounter for screening, unspecified (principal); F11.20 Opioid dependence, uncomplicated

== ENCOUNTER → 2018-05-07 | Outpatient (RCR) | payer MEDICAID | LOC: M OUTALCOH 14:28 | PROVIDERS: ATTEND Psychiatry & Neurology Psychiatry | DX: F11.20 Opioid dependence, uncomplicated (principal) ==

== ENCOUNTER → 2018-08-10 | Outpatient (REF) | payer OTHER ==
[~2018-08-10] MED LIST changes: -ERRI0.35 PO; -NAPR-50 PO; +NAPR-837 PO; +NORE0.358 PO; +PROM-190 PO; -PROM25TA PO
[2018-08-10 18:17] LABS: APPEARANCE, URINE CLOUDY (CLEAR); BACTERIA, URINE AUTO 1+ (NEGATIVE); BILIRUBIN, URINE AUTO NEGATIVE (NEGATIVE); BLOOD, URINE BLOOD 1+ (NEGATIVE); COLOR, URINE AMBER (YELLOW); GLUCOSE, URINE (UA) AUTO NEGATIVE (NEGATIVE); KETONE, URINE AUTO TRACE mg/dL (NEGATIVE); LEUKOCYTE ESTERASE, URINE AUTO 3+ (NEGATIVE); MUCUS, URINE LARGE (NEGATIVE); NITRITE, URINE AUTO NEGATIVE (NEGATIVE); PROTEIN, URINE AUTO NEGATIVE (NEGATIVE); RBC, URINE AUTO 2 /HPF (0-3); SPECIFIC GRAVITY URINE AUTO 1.019 (1.002-1.035); SQUAMOUS EPITHELIAL CELL UR AU 7 /HPF (0-6); WBC, URINE AUTO 46 /HPF (0-3)
[2018-08-10 22:03] LABS: CHLAMYDIA DNA AMPLIFICATION POSITIVE (NEGATIVE); GC DNA AMPLIFICATION NEGATIVE (NEGATIVE)
== END ==
LOC: M LAB REF 16:03
PROVIDERS: ATTEND Nurse Practitioner Primary Care
DX: R10.30 Lower abdominal pain, unspecified (principal)

== ENCOUNTER → 2018-09-17 | Outpatient (REF) | payer OTHER, MEDICAID ==
[~2018-09-17] MED LIST changes: -TRAZ-160 PO; +TRAZ-252 PO; +TRAZ1TAB10 PO; -TRAZO50TA PO
[2018-09-18 12:48] LABS: HIV 1&2 SCREEN CENTAUR NEGATIVE (NEGATIVE)
== END ==
LOC: M LAB REF 16:58
PROVIDERS: ATTEND Nurse Practitioner Adult Health
DX: F19.10 Other psychoactive substance abuse, uncomplicated (principal)

== ENCOUNTER → 2018-09-18 | Outpatient (REF) | payer OTHER, MEDICAID ==
[2018-09-18 12:58] LABS: APPEARANCE, URINE TURBID (CLEAR); BACTERIA, URINE AUTO 3+ (NEGATIVE); BILIRUBIN, URINE AUTO NEGATIVE (NEGATIVE); BLOOD, URINE BLOOD NEGATIVE (NEGATIVE); COLOR, URINE AMBER (YELLOW); GLUCOSE, URINE (UA) AUTO NEGATIVE (NEGATIVE); KETONE, URINE AUTO TRACE mg/dL (NEGATIVE); LEUKOCYTE ESTERASE, URINE AUTO 2+ (NEGATIVE); MUCUS, URINE LARGE (NEGATIVE); NITRITE, URINE AUTO POSITIVE (NEGATIVE); PROTEIN, URINE AUTO 1+ mg/dL (NEGATIVE); RBC, URINE AUTO 6 /HPF (0-3); SPECIFIC GRAVITY URINE AUTO 1.016 (1.002-1.035); SQUAMOUS EPITHELIAL CELL UR AU 30 /HPF (0-6); UROBILINOGEN, URINE AUTO 0.2 mg/dL (0.0-2.0); WBC, URINE AUTO 96 /HPF (0-3)
[2018-09-18 14:18] LABS: CHLAMYDIA DNA AMPLIFICATION NEGATIVE (NEGATIVE); GC DNA AMPLIFICATION NEGATIVE (NEGATIVE)
== END ==
LOC: M LAB REF 11:28
PROVIDERS: ATTEND Nurse Practitioner Adult Health
DX: F19.10 Other psychoactive substance abuse, uncomplicated (principal)

== ENCOUNTER → 2018-10-12 | Outpatient (REF) | payer OTHER, MEDICAID ==
[~2018-10-12] MED LIST changes: -OMEP20CA3 PO; +OMEP20CA4 PO
[2018-10-12 18:58] LABS: APPEARANCE, URINE CLEAR (CLEAR); BACTERIA, URINE AUTO NEGATIVE (NEGATIVE); BILIRUBIN, URINE AUTO NEGATIVE (NEGATIVE); BLOOD, URINE BLOOD NEGATIVE (NEGATIVE); COLOR, URINE YELLOW (YELLOW); GLUCOSE, URINE (UA) AUTO NEGATIVE (NEGATIVE); KETONE, URINE AUTO NEGATIVE (NEGATIVE); LEUKOCYTE ESTERASE, URINE AUTO NEGATIVE (NEGATIVE); MUCUS, URINE SMALL (NEGATIVE); NITRITE, URINE AUTO NEGATIVE (NEGATIVE); PROTEIN, URINE AUTO NEGATIVE (NEGATIVE); RBC, URINE AUTO 0 /HPF (0-3); SPECIFIC GRAVITY URINE AUTO 1.012 (1.002-1.035); SQUAMOUS EPITHELIAL CELL UR AU 0 /HPF (0-6); UROBILINOGEN, URINE AUTO 0.2 mg/dL (0.0-2.0); WBC, URINE AUTO 0 /HPF (0-3)
== END ==
LOC: M LAB REF 18:34
PROVIDERS: ATTEND Nurse Practitioner Family
DX: R30.0 Dysuria (principal); F11.10 Opioid abuse, uncomplicated

== ENCOUNTER → 2019-05-05 | Outpatient (CLI) | payer OTHER, MEDICAID ==
[~2019-05-05] MED LIST changes: +OMEP1CAP73 PO; -OMEP20CA4 PO; -OMEP40CA2 PO; +OMEP40CA97 PO
[2019-05-05 17:13] LABS: ALBUMIN 3.7 GM/DL (3.2-5.2); ALT/SGPT 29 U/L (12-78); BILIRUBIN,TOTAL 0.5 MG/DL (0.2-1.0); BLOOD UREA NITROGEN 11 MG/DL (7-18); CALCIUM LEVEL 9.4 MG/DL (8.5-10.1); CARBON DIOXIDE LEVEL 29 MEQ/L (21-32); CHLORIDE LEVEL 106 MEQ/L (98-107); CREATININE FOR GFR 0.68 MG/DL (0.55-1.30); GLOMERULAR FILTRATION RATE > 60.0 (>60); GLUCOSE, FASTING 81 MG/DL (70-100); SODIUM LEVEL 140 MEQ/L (136-145); TOTAL PROTEIN 7.4 GM/DL (6.4-8.2)
[2019-05-05 18:01] LABS: HIV 1&2 SCREEN CENTAUR NEGATIVE (NEGATIVE)
[2019-05-05 19:13] LABS: CHLAMYDIA DNA AMPLIFICATION NEGATIVE (NEGATIVE); GC DNA AMPLIFICATION POSITIVE (NEGATIVE)
[2019-05-07 10:08] LABS: HEPATITIS B SURFACE ANTIGEN NEGATIVE (NEGATIVE)
== END ==
LOC: M PLALAB 13:27
PROVIDERS: ATTEND Family Medicine
DX: F11.20 Opioid dependence, uncomplicated (principal)
CPT/HCPCS: 36415; 80053; 86780; 87340; 87389; 87491; 87591; G0472

== ENCOUNTER 2019-06-29 04:33 | Emergency (ER) | payer MEDICAID, OTHER ==
[~2019-06-29] VITALS: Ht 152.4 cm; Wt 43.8 kg
[2019-06-29] MEDS ORDERED: trazadone PO (04:42)
[2019-06-29] MEDS ORDERED: NS 1,000 ML IV ONE (04:45)
[2019-06-29 05:44] LABS: HCG, SERUM QUALITATIVE NEGATIVE (NEGATIVE)
[2019-06-29 05:46] LABS: BASO % 0.4 % (0.0-1.0); EOS # 0.1 10^3/uL (0.0-0.5); HEMATOCRIT 39.8 % (36.0-47.0); HEMOGLOBIN 13.4 g/dl (12.0-15.5); LYMPH % 52.5 % (24.0-44.0); MEAN CORPUSCULAR HEMOGLOBIN 28.5 pg (27.0-33.0); MEAN CORPUSCULAR HGB CONC 33.7 g/dl (32.0-36.5); MEAN CORPUSCULAR VOLUME 84.7 fl (80.0-96.0); MONO # 0.5 10^3/uL (0.0-0.8); MONO % 4.8 % (0.0-5.0); NEUTROPHILS # 3.9 10^3/uL (1.5-8.5); NEUTROPHILS % 41.2 % (36.0-66.0); PLATELET COUNT, AUTOMATED 479 10^3/uL (150-450); WHITE BLOOD COUNT 9.6 10^3/uL (4.0-10.0)
--- NOTE | 2019-06-29 05:48 | ECGEPIP ---
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
[2019-06-29 06:01] LABS: ACETAMINOPHEN LEVEL < 2.0 UG/ML (10.0-30.0); ALBUMIN 3.6 GM/DL (3.2-5.2); ALT/SGPT 24 U/L (12-78); BILIRUBIN,DIRECT < 0.1 MG/DL (0.0-0.2); BILIRUBIN,TOTAL 0.4 MG/DL (0.2-1.0); BLOOD UREA NITROGEN 14 MG/DL (7-18); CALCIUM LEVEL 8.6 MG/DL (8.5-10.1); CARBON DIOXIDE LEVEL 24 MEQ/L (21-32); CHLORIDE LEVEL 107 MEQ/L (98-107); CPK CREATINE PHOSPHOKINASE 129 U/L (26-192); CREATININE FOR GFR 0.59 MG/DL (0.55-1.30); ETHYL ALCOHOL (ETHANOL) < 0.003 % (0.000-0.010); GLOMERULAR FILTRATION RATE > 60.0 (>60); GLUCOSE, FASTING 90 MG/DL (70-100); POTASSIUM SERUM 4.3 MEQ/L (3.5-5.1); SALICYLATE LEVEL 2.7 MG/DL (5.0-30.0); SODIUM LEVEL 138 MEQ/L (136-145); TOTAL PROTEIN 7.8 GM/DL (6.4-8.2)
[2019-06-29 07:04] LABS: AMPHETAMINES LEVEL URINE NEGATIVE (NEGATIVE); BARBITURATES URINE NEGATIVE (NEGATIVE); BENZODIAZEPINES URINE NEGATIVE (NEGATIVE); CANNABINOIDS URINE NEGATIVE (NEGATIVE); COCAINE METABOLITE URINE POSITIVE (NEGATIVE); METHADONE URINE NEGATIVE (NEGATIVE); OPIATES URINE POSITIVE (NEGATIVE); PHENCYCLIDINE URINE NEGATIVE (NEGATIVE)
[2019-06-29 09:00] VITALS: BP 105/58
== END 2019-06-29 09:40 | disposition home or self-care (01) ==
LOC: M ED 04:33
DX: F19.10 Other psychoactive substance abuse, uncomplicated (principal); B19.20 Unspecified viral hepatitis C without hepatic coma; F17.210 Nicotine dependence, cigarettes, uncomplicated
CPT/HCPCS: 36415; 36600; 80048; 80076; 80307; 82550; 84443; 84703; 85025; 93005; 93041; 94760; 96360; 99285; G0480

== ENCOUNTER 2019-09-25 18:37 | Emergency (ER) | payer OTHER ==
[~2019-09-25] VITALS: Ht 152.4 cm; Wt 43.2 kg
[~2019-09-25 18:37] MED LIST changes: +trazadone PO
[2019-09-25] MEDS ORDERED: ONDANSETRON 4MG/2ML VIAL IV ONE (19:00)
[2019-09-25] MEDS ORDERED: NS 1,000 ML IV ONE (19:00)
[2019-09-25 19:34] VITALS: BP 97/65
[2019-09-25 19:35] LABS: BASO % 0.4 % (0.0-1.0); EOS % 0.2 % (0.0-3.0); HEMATOCRIT 38.8 % (36.0-47.0); HEMOGLOBIN 13.1 g/dl (12.0-15.5); LYMPH # 3.8 10^3/uL (1.5-5.0); LYMPH % 46.8 % (24.0-44.0); MEAN CORPUSCULAR HEMOGLOBIN 28.5 pg (27.0-33.0); MEAN CORPUSCULAR HGB CONC 33.8 g/dl (32.0-36.5); MEAN CORPUSCULAR VOLUME 84.3 fl (80.0-96.0); MONO # 0.5 10^3/uL (0.0-0.8); NEUTROPHILS # 3.8 10^3/uL (1.5-8.5); NEUTROPHILS % 46.5 % (36.0-66.0); PLATELET COUNT, AUTOMATED 499 10^3/uL (150-450); WHITE BLOOD COUNT 8.1 10^3/uL (4.0-10.0)
[2019-09-25 19:55] LABS: HCG, SERUM QUALITATIVE NEGATIVE (NEGATIVE)
[2019-09-25 19:58] LABS: ALBUMIN 3.5 GM/DL (3.2-5.2); ALT/SGPT 33 U/L (12-78); BILIRUBIN,DIRECT 0.2 MG/DL (0.0-0.2); BILIRUBIN,TOTAL 0.5 MG/DL (0.2-1.0); BLOOD UREA NITROGEN 19 MG/DL (7-18); CALCIUM LEVEL 8.7 MG/DL (8.5-10.1); CARBON DIOXIDE LEVEL 26 MEQ/L (21-32); CHLORIDE LEVEL 108 MEQ/L (98-107); CREATININE FOR GFR 0.56 MG/DL (0.55-1.30); GLOMERULAR FILTRATION RATE > 60.0 (>60); GLUCOSE, FASTING 111 MG/DL (70-100); LIPASE 33 U/L (73-393); POTASSIUM SERUM 3.7 MEQ/L (3.5-5.1); SODIUM LEVEL 143 MEQ/L (136-145); TOTAL PROTEIN 7.3 GM/DL (6.4-8.2)
== END 2019-09-25 19:55 | disposition home or self-care (01) ==
LOC: EDBD 18:37 → M ED 18:37
DX: F19.10 Other psychoactive substance abuse, uncomplicated (principal); R11.2 Nausea with vomiting, unspecified; B18.2 Chronic viral hepatitis C; F17.200 Nicotine dependence, unspecified, uncomplicated; Z53.20 Procedure and treatment not carried out because of patient's decision for unspecified reasons
CPT/HCPCS: 80048; 80076; 83690; 84703; 85025; 96361; 96374; 99284; J2405

== ENCOUNTER 2019-09-25 20:16 | Emergency (ER) | payer OTHER ==
[~2019-09-25] VITALS: Ht 152.4 cm; Wt 43.2 kg
[2019-09-25] MEDS ORDERED: OLANZapine INTRAMUSCULAR 10MG VIAL IM ONE (20:45)
[2019-09-25] MEDS ORDERED: OLANZapine 5 MG TAB PO ONE (21:30)
[2019-09-25] MEDS ORDERED: ONDANSETRON 4 MG ORAL DISINTEGRATING TAB PO ONE (23:45)
[2019-09-26 00:22] LABS: AMPHETAMINES LEVEL URINE NEGATIVE (NEGATIVE); BARBITURATES URINE NEGATIVE (NEGATIVE); BENZODIAZEPINES URINE NEGATIVE (NEGATIVE); CANNABINOIDS URINE NEGATIVE (NEGATIVE); COCAINE METABOLITE URINE NEGATIVE (NEGATIVE); METHADONE URINE POSITIVE (NEGATIVE); OPIATES URINE POSITIVE (NEGATIVE); PHENCYCLIDINE URINE NEGATIVE (NEGATIVE)
[2019-09-26] MEDS ORDERED: ONDANSETRON 4 MG ORAL DISINTEGRATING TAB PO ONE (04:15)
[2019-09-26 08:45] VITALS: BP 136/72
== END 2019-09-26 08:46 | disposition home or self-care (01) ==
LOC: M ED 20:16
DX: F19.230 Other psychoactive substance dependence with withdrawal, uncomplicated (principal); B18.2 Chronic viral hepatitis C; F17.200 Nicotine dependence, unspecified, uncomplicated; Z65.3 Problems related to other legal circumstances; Z79.899 Other long term (current) drug therapy
CPT/HCPCS: 51701; 80307; 99284; Q0162

== ENCOUNTER 2019-10-23 22:01 | Emergency (ER) | payer OTHER ==
[~2019-10-23] VITALS: Ht 152.4 cm; Wt 40.9 kg
[2019-10-23 22:07] VITALS: BP 102/72
[2019-10-23 23:12] LABS: AMPHETAMINES LEVEL URINE POSITIVE (NEGATIVE); BARBITURATES URINE NEGATIVE (NEGATIVE); BENZODIAZEPINES URINE NEGATIVE (NEGATIVE); CANNABINOIDS URINE NEGATIVE (NEGATIVE); COCAINE METABOLITE URINE POSITIVE (NEGATIVE); METHADONE URINE POSITIVE (NEGATIVE); OPIATES URINE POSITIVE (NEGATIVE); PHENCYCLIDINE URINE NEGATIVE (NEGATIVE)
== END 2019-10-24 00:24 | disposition home or self-care (01) ==
LOC: M ED 22:01
DX: F19.10 Other psychoactive substance abuse, uncomplicated (principal); F17.200 Nicotine dependence, unspecified, uncomplicated; B18.2 Chronic viral hepatitis C

== ENCOUNTER 2019-11-09 20:00 | Inpatient (IN) | payer MEDICAID, OTHER ==
[2019-11-11] MEDS ORDERED: LORazepam 2 MG/ML VIAL ONE ×2 (04:37→20:13)
[2019-11-11] MEDS ORDERED: METHADONE 10 MG TAB (S0109) ONE (11:06)
[2019-11-11] MEDS ORDERED: ONDANSETRON 4 MG TAB ONE (11:40)
[2019-11-11] MEDS ORDERED: SODIUM CHLORIDE 0.9% 50 ML ONE (13:00)
[2019-11-11] MEDS ORDERED: FOLIC ACID 1MG/0.2ML VIAL ONE (13:00)
[2019-11-11] MEDS ORDERED: LORazepam 2 MG/ML VIAL As Ordered ONE (20:13)
[2019-11-11] MEDS ORDERED: ONDANSETRON 4 MG ORAL DISINTEGRATING TAB As Ordered ONE (23:45)
[2019-11-11] MEDS ORDERED: ONDANSETRON 4 MG ORAL DISINTEGRATING TAB ONE (23:45)
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
[2020-01-08 11:03] LABS: HEMATOCRIT 45.1 % (36.0-47.0); HEMOGLOBIN 15.4 g/dl (12.0-15.5); MEAN CORPUSCULAR HEMOGLOBIN 28.6 pg (27.0-33.0); MEAN CORPUSCULAR HGB CONC 34.1 g/dl (32.0-36.5); MEAN CORPUSCULAR VOLUME 83.8 fl (80.0-96.0); PLATELET COUNT, AUTOMATED 657 10^3/uL (150-450); RED BLOOD COUNT 5.38 10^6/uL (4.00-5.40); WHITE BLOOD COUNT 15.4 10^3/uL (4.0-10.0)
[2020-01-08 11:04] LABS: LYMPHOCYTES 17 % (16-44); NEUTROPHILS 83 % (28-66); PLATELET ESTIMATE INCREASED (NORMAL)
== END 2019-11-12 07:46 | disposition left against medical advice (07) | DRG 249 ==
LOC: M ED 20:00 → UNDOADMIN 11-11 15:15 → M PCU 11-11 15:15 → M PSY 11-11 15:15 → UNDODISIN 11-12 07:46
PROVIDERS: ADMIT Internal Medicine; ATTEND Internal Medicine
DX: R11.10 Vomiting, unspecified (principal); E86.0 Dehydration; F32.9 Major depressive disorder, single episode, unspecified; F41.9 Anxiety disorder, unspecified; F10.10 Alcohol abuse, uncomplicated; F14.90 Cocaine use, unspecified, uncomplicated; R00.0 Tachycardia, unspecified

== ENCOUNTER 2019-11-12 07:40 | Emergency (ER) | payer OTHER | END 2019-11-12 09:30 | disposition home or self-care (01) | LOC: M ED 07:40 | DX: F19.10 Other psychoactive substance abuse, uncomplicated (principal) ==

== ENCOUNTER 2019-11-25 19:52 | Emergency (ER) | payer OTHER ==
[~2019-11-25] VITALS: Ht 152.4 cm; Wt 45.5 kg
[2019-11-25 20:07] VITALS: BP 104/69
== END 2019-11-25 20:49 | disposition left against medical advice (07) ==
LOC: M ED 19:52
DX: Z53.21 Procedure and treatment not carried out due to patient leaving prior to being seen by health care provider (principal)

== ENCOUNTER → 2019-12-18 | Outpatient (REF) | payer OTHER ==
[2019-12-18 21:43] LABS: APPEARANCE, URINE CLOUDY (CLEAR); BACTERIA, URINE AUTO 1+ (NEGATIVE); BILIRUBIN, URINE AUTO NEGATIVE (NEGATIVE); BLOOD, URINE BLOOD NEGATIVE (NEGATIVE); CALCIUM OXALATE CRYSTALS MODERATE; COLOR, URINE YELLOW (YELLOW); GLUCOSE, URINE (UA) AUTO NEGATIVE (NEGATIVE); KETONE, URINE AUTO NEGATIVE (NEGATIVE); LEUKOCYTE ESTERASE, URINE AUTO 3+ (NEGATIVE); MUCUS, URINE SMALL (NEGATIVE); NITRITE, URINE AUTO NEGATIVE (NEGATIVE); PROTEIN, URINE AUTO NEGATIVE (NEGATIVE); RBC, URINE AUTO 27 /HPF (0-3); SPECIFIC GRAVITY URINE AUTO 1.027 (1.002-1.035); SQUAMOUS EPITHELIAL CELL UR AU 18 /HPF (0-6); UROBILINOGEN, URINE AUTO 0.2 mg/dL (0.0-2.0); WBC, URINE AUTO 55 /HPF (0-3)
== END ==
LOC: M LAB REF 21:19
PROVIDERS: ATTEND Physician Assistant
DX: N39.0 Urinary tract infection, site not specified (principal)

== ENCOUNTER → 2021-08-31 | Outpatient (CLI) | payer OTHER ==
[~2021-08-31] MED LIST changes: +ESCI10TA16 PO; -ESCI10TA2 PO; +GABA-282 PO; -GABA-843 PO; +OMEP40CA4 PO; -OMEP40CA97 PO
[2021-08-31 16:08] LABS: GC DNA AMPLIFICATION NEGATIVE (NEGATIVE)
== END ==
LOC: M EKG 13:07
PROVIDERS: ATTEND Family Medicine
DX: F11.20 Opioid dependence, uncomplicated (principal)

== ENCOUNTER → 2021-09-06 | Outpatient (CLI) | payer OTHER ==
[2021-09-06 13:47] LABS: HEMATOCRIT 36.8 % (36.0-47.0); HEMOGLOBIN 12.7 g/dl (12.0-15.5); MEAN CORPUSCULAR HEMOGLOBIN 30.5 pg (27.0-33.0); MEAN CORPUSCULAR HGB CONC 34.5 g/dl (32.0-36.5); MEAN CORPUSCULAR VOLUME 88.2 fl (80.0-96.0); PLATELET COUNT, AUTOMATED 358 10^3/uL (150-450); RED BLOOD COUNT 4.17 10^6/uL (4.00-5.40); WHITE BLOOD COUNT 12.1 10^3/uL (4.0-10.0)
== END ==
LOC: M LAB 12:03
PROVIDERS: ATTEND Obstetrics & Gynecology
DX: Z32.01 Encounter for pregnancy test, result positive (principal); O36.80X0 Pregnancy with inconclusive fetal viability, not applicable or unspecified; Z3A.00 Weeks of gestation of pregnancy not specified

== ENCOUNTER → 2021-09-06 | Outpatient (REF) | payer OTHER | LOC: M LAB REF 11:57 | PROVIDERS: ATTEND Obstetrics & Gynecology | DX: Z32.01 Encounter for pregnancy test, result positive (principal); O36.80X0 Pregnancy with inconclusive fetal viability, not applicable or unspecified ==

== ENCOUNTER → 2021-10-15 | Outpatient (CLI) | payer OTHER ==
[2021-10-15 11:50] LABS: BASO % 0.2 % (0.0-1.0); EOS # 0.1 10^3/uL (0.0-0.5); EOS % 0.7 % (0.0-3.0); HEMATOCRIT 33.6 % (36.0-47.0); HEMOGLOBIN 11.4 g/dl (12.0-15.5); LYMPH # 2.6 10^3/uL (1.5-5.0); LYMPH % 21.1 % (24.0-44.0); MEAN CORPUSCULAR HEMOGLOBIN 29.9 pg (27.0-33.0); MEAN CORPUSCULAR HGB CONC 33.9 g/dl (32.0-36.5); MEAN CORPUSCULAR VOLUME 88.2 fl (80.0-96.0); MONO # 0.8 10^3/uL (0.0-0.8); MONO % 6.4 % (2.0-8.0); NEUTROPHILS # 8.5 10^3/uL (1.5-8.5); NEUTROPHILS % 70.5 % (36.0-66.0); PLATELET COUNT, AUTOMATED 362 10^3/uL (150-450); RED BLOOD COUNT 3.81 10^6/uL (4.00-5.40); WHITE BLOOD COUNT 12.1 10^3/uL (4.0-10.0)
[2021-10-15 14:44] LABS: HEPATITIS B SURFACE ANTIGEN NEGATIVE (NEGATIVE); HIV 1&2 SCREEN CENTAUR NEGATIVE (NEGATIVE)
[2021-10-15 14:45] LABS: HEPATITIS C VIRUS ABY INDEX > 11.0 INDEX (<0.8)
== END ==
LOC: M LAB 10:06
PROVIDERS: ATTEND Obstetrics & Gynecology
DX: Z34.82 Encounter for supervision of other normal pregnancy, second trimester (principal)

== ENCOUNTER 2021-11-13 10:30 | Outpatient (CLI) | payer OTHER ==
[~2021-11-13] VITALS: Ht 152.4 cm; Wt 52.7 kg
[2021-11-13 10:46] VITALS: BP 121/79
[2021-11-13] MEDS ORDERED: METH-1177 PO (11:11)
[2021-11-13] MEDS ORDERED: PRENTAB9 PO (11:11)
== END 2021-11-13 12:08 | disposition left against medical advice (07) ==
LOC: M LDO 10:30
PROVIDERS: ATTEND Specialist
DX: O26.892 Other specified pregnancy related conditions, second trimester (principal); R10.30 Lower abdominal pain, unspecified; M54.50 Low back pain, unspecified; O21.2 Late vomiting of pregnancy; O99.322 Drug use complicating pregnancy, second trimester; Z3A.27 27 weeks gestation of pregnancy

== ENCOUNTER 2021-11-13 14:45 | Outpatient (CLI) | payer OTHER ==
[~2021-11-13] VITALS: Ht 152.4 cm; Wt 52.0 kg
[~2021-11-13 14:45] MED LIST changes: +METH-1177 PO; +PRENTAB9 PO
[2021-11-13] MEDS ORDERED: ONDANSETRON 4MG ORAL DISINTEGRATING TAB PO PRN (16:30)
[2021-11-13 18:07] LABS: BASO # 0.1 10^3/uL (0.0-0.2); BASO % 0.3 % (0.0-1.0); EOS % 0.2 % (0.0-3.0); HEMATOCRIT 39.8 % (36.0-47.0); HEMOGLOBIN 13.5 g/dl (12.0-15.5); LYMPH # 2.8 10^3/uL (1.5-5.0); LYMPH % 19.5 % (24.0-44.0); MEAN CORPUSCULAR HEMOGLOBIN 29.2 pg (27.0-33.0); MEAN CORPUSCULAR HGB CONC 33.9 g/dl (32.0-36.5); MONO % 7.3 % (2.0-8.0); NEUTROPHILS # 10.2 10^3/uL (1.5-8.5); NEUTROPHILS % 71.1 % (36.0-66.0); PLATELET COUNT, AUTOMATED 380 10^3/uL (150-450); RED BLOOD COUNT 4.63 10^6/uL (4.00-5.40); WHITE BLOOD COUNT 14.3 10^3/uL (4.0-10.0)
[2021-11-13 18:47] LABS: ALBUMIN 2.9 GM/DL (3.2-5.2); ALT/SGPT 15 U/L (12-78); BILIRUBIN,TOTAL 0.3 MG/DL (0.2-1.0); BLOOD UREA NITROGEN 6 MG/DL (7-18); CALCIUM LEVEL 9.3 MG/DL (8.5-10.1); CARBON DIOXIDE LEVEL 25 MEQ/L (21-32); CHLORIDE LEVEL 104 MEQ/L (98-107); CREATININE FOR GFR 0.49 MG/DL (0.55-1.30); GLOMERULAR FILTRATION RATE > 60.0 (>60); GLUCOSE, FASTING 81 MG/DL (70-100); POTASSIUM SERUM 4.6 MEQ/L (3.5-5.1); SODIUM LEVEL 135 MEQ/L (136-145); TOTAL PROTEIN 7.5 GM/DL (6.4-8.2)
== END 2021-11-13 22:00 | disposition home or self-care (01) ==
LOC: M LDO 14:45
PROVIDERS: ATTEND Specialist
DX: O26.892 Other specified pregnancy related conditions, second trimester (principal); O21.2 Late vomiting of pregnancy; O99.322 Drug use complicating pregnancy, second trimester; F11.20 Opioid dependence, uncomplicated; M54.50 Low back pain, unspecified; R10.84 Generalized abdominal pain; Z3A.27 27 weeks gestation of pregnancy

== ENCOUNTER → 2021-12-06 | Outpatient (REF) | payer OTHER | LOC: M LAB REF 16:18 | PROVIDERS: ATTEND Obstetrics & Gynecology | DX: Z36.85 Encounter for antenatal screening for Streptococcus B (principal); R30.0 Dysuria ==

== ENCOUNTER → 2021-12-11 | Outpatient (CLI) | payer OTHER ==
[2021-12-11 12:54] LABS: HEMATOCRIT 40.1 % (36.0-47.0); HEMOGLOBIN 13.5 g/dl (12.0-15.5); MEAN CORPUSCULAR HEMOGLOBIN 29.9 pg (27.0-33.0); MEAN CORPUSCULAR HGB CONC 33.7 g/dl (32.0-36.5); MEAN CORPUSCULAR VOLUME 88.9 fl (80.0-96.0); PLATELET COUNT, AUTOMATED 255 10^3/uL (150-450); RED BLOOD COUNT 4.51 10^6/uL (4.00-5.40); WHITE BLOOD COUNT 10.4 10^3/uL (4.0-10.0)
[2021-12-11 13:57] LABS: HCG, SERUM QUALITATIVE POSITIVE (NEGATIVE)
[2021-12-11 14:16] LABS: ALBUMIN 2.5 GM/DL (3.2-5.2); ALT/SGPT 13 U/L (12-78); BILIRUBIN,TOTAL 0.2 MG/DL (0.2-1.0); BLOOD UREA NITROGEN 6 MG/DL (7-18); CALCIUM LEVEL 9.2 MG/DL (8.5-10.1); CARBON DIOXIDE LEVEL 18 MEQ/L (21-32); CHLORIDE LEVEL 107 MEQ/L (98-107); CREATININE FOR GFR 0.49 MG/DL (0.55-1.30); GLOMERULAR FILTRATION RATE > 60.0 (>60); GLUCOSE, FASTING 74 MG/DL (70-100); POTASSIUM SERUM 4.2 MEQ/L (3.5-5.1); SODIUM LEVEL 137 MEQ/L (136-145); TOTAL PROTEIN 6.8 GM/DL (6.4-8.2)
[2021-12-11 15:15] LABS: HEPATITIS B SURFACE ANTIGEN NEGATIVE (NEGATIVE)
[2021-12-11 15:43] LABS: HIV 1&2 SCREEN CENTAUR NEGATIVE (NEGATIVE)
[2021-12-11 15:56] LABS: HEPATITIS C VIRUS ABY INDEX > 11.0 INDEX (<0.8)
== END ==
LOC: M LAB 11:30
PROVIDERS: ATTEND Family Medicine
DX: F11.20 Opioid dependence, uncomplicated (principal)
CPT/HCPCS: 36415; 80053; 84703; 85027; 86780; 86803; 87340; 87389; 87522; G0480

== ENCOUNTER → 2021-12-12 | Outpatient (CLI) | payer OTHER | LOC: M WHC 10:30 | PROVIDERS: ATTEND Obstetrics & Gynecology | DX: Z34.83 Encounter for supervision of other normal pregnancy, third trimester (principal) ==

== ENCOUNTER → 2021-12-12 | Outpatient (CLI) | payer OTHER ==
[2021-12-12 11:53] LABS: GC DNA AMPLIFICATION NEGATIVE (NEGATIVE)
== END ==
LOC: M LAB 06:13
PROVIDERS: ATTEND Family Medicine
DX: F11.20 Opioid dependence, uncomplicated (principal)
CPT/HCPCS: 36415; 87810; 87850; G0480

== ENCOUNTER 2022-01-04 14:12 | Outpatient (CLI) | payer OTHER ==
[~2022-01-04] VITALS: Ht 152.4 cm; Wt 56.2 kg
[2022-01-04 14:38] VITALS: BP 118/76
[2022-01-04] MEDS ORDERED: HOME MED LIST COMPLETE! XX SCH (15:20)
[2022-01-04 15:39] LABS: APPEARANCE, URINE MANUAL HAZY (CLEAR); BILIRUBIN, URINE MANUAL NEGATIVE (NEGATIVE); COLOR, URINE MANUAL YELLOW (YELLOW); GLUCOSE, URINE (UA) MANUAL NEGATIVE (NEGATIVE); KETONE, URINE MANUAL NEGATIVE (NEGATIVE); PH,URINE MAN 5.5 UNITS (5.0 - 7.0); PROTEIN, URINE MANUAL 2+ mg/dL (NEGATIVE); UROBILINOGEN, URINE MANUAL NORMAL (NORMAL)
[2022-01-04 15:40] LABS: BLOOD URINE MANUAL POSITIVE (NEGATIVE); LEUKOCYTE ESTERASE, URINE MAN POSITIVE (NEGATIVE); NITRITE, URINE MANUAL POSITIVE (NEGATIVE)
[2022-01-04 15:51] LABS: BACTERIA, URINE LARGE AMOUNT; HYALINE CAST, URINE NONE SEEN /lpf (0-1); SQUAMOUS EPITHELIAL CELL URINE MOD AMOUNT /hpf (SMALL AMT); WBC, URINE TNTC /hpf (0-3)
[2022-01-04] MEDS ORDERED: LR 1,000 ML IV ONE (16:00)
[2022-01-04] MEDS ORDERED: cefTRIAXone SOD 1 GM in D5W MINI-BAG PLUS 50 ML IV ONE (16:00)
[2022-01-04] MEDS ORDERED: LIDOCAINE 1% SDV 5ML VIAL DILUENT ONE (17:30)
[2022-01-04] MEDS ORDERED: cefTRIAXone SOD 1GM VIAL (J0696 PER 250MG) IM ONE (17:30)
[2022-01-04] MEDS ORDERED: LIDOCAINE 1% MDV 20ML VIAL IM ONE (17:35)
[2022-01-04 17:57] VITALS: BP 131/80
[2022-01-04] MEDS ORDERED: CEPH25SS PO (19:50)
== END 2022-01-04 18:55 | disposition home or self-care (01) ==
LOC: M LDO 14:12
PROVIDERS: ATTEND Obstetrics & Gynecology
DX: O23.593 Infection of other part of genital tract in pregnancy, third trimester (principal); Z3A.39 39 weeks gestation of pregnancy; B96.20 Unspecified Escherichia coli [E. coli] as the cause of diseases classified elsewhere; Z91.19 Patient's noncompliance with other medical treatment and regimen
CPT/HCPCS: 59025; 81000; 87088; 87186; 96372; J0696

== ENCOUNTER 2022-01-07 14:49 | Inpatient (IN) | payer OTHER ==
[~2022-01-07] VITALS: Ht 152.4 cm; Wt 61.1 kg
[2022-01-07] MEDS: miSOPROStol 50MCG 1/2 TABLET PO SCH ×2 (06:00→22:13)
[~2022-01-07 14:49] MED LIST changes: +CEPH25SS PO
[2022-01-07] MEDS ORDERED: LACTATED RINGER'S 1000 ML IV STA (15:48)
[2022-01-07] MEDS ORDERED: CARBOPROST TROMETHAMINE 250 MCG/ML AMP IM PRN (15:50)
[2022-01-07] MEDS ORDERED: LIDOCAINE 1% MDV 20ML VIAL INFIL PRN (15:50)
[2022-01-07] MEDS ORDERED: METHYLERGONOVINE MALEATE 0.2 MG/ML VIAL (J2210) IM PRN (15:50)
[2022-01-07] MEDS ORDERED: OXYTOCIN INJ 10 UNITS/ML VIAL (J2590) IM PRN (15:50)
[2022-01-07] MEDS ORDERED: TRANEXAMIC ACID INJection 1,000 MG in NS 100 ML IV PRN (15:50)
[2022-01-07] MEDS ORDERED: OXYTOCIN DRIP 30 UNITS in IV 1 EA IV PRN (15:50)
[2022-01-07] MEDS ORDERED: HOME MED LIST COMPLETE! XX SCH (16:00)
[2022-01-07 16:26] VITALS: BP 109/67
[2022-01-07 16:38] LABS: HEMATOCRIT 43.1 % (36.0-47.0); HEMOGLOBIN 14.6 g/dl (12.0-15.5); MEAN CORPUSCULAR HEMOGLOBIN 29.5 pg (27.0-33.0); MEAN CORPUSCULAR HGB CONC 33.9 g/dl (32.0-36.5); MEAN CORPUSCULAR VOLUME 87.1 fl (80.0-96.0); PLATELET COUNT, AUTOMATED 352 10^3/uL (150-450); RED BLOOD COUNT 4.95 10^6/uL (4.00-5.40); WHITE BLOOD COUNT 10.6 10^3/uL (4.0-10.0)
[2022-01-07] MEDS ORDERED: CALCIUM CARBONATE 500 MG CHEW U/D PO PRN (17:10)
[2022-01-07 17:44] VITALS: BP 116/75
[2022-01-07 18:27] LABS: AMPHETAMINES URINE REFLEX NEGATIVE (NEGATIVE); BARBITURATES URINE REFLEX NEGATIVE (NEGATIVE); BENZODIAZEPINES URINE REFLEX NEGATIVE (NEGATIVE); CANNABINOIDS URINE REFLEX NEGATIVE (NEGATIVE); COCAINE METABOLITE URINE REFLE NEGATIVE (NEGATIVE); PHENCYCLIDINE URINE REFLEX NEGATIVE (NEGATIVE)
[2022-01-07 18:28] LABS: METHADONE URINE REFLEX PENDING CONFIRMATION (NEGATIVE); OPIATES URINE REFLEX PENDING CONFIRMATION (NEGATIVE)
[2022-01-07 19:10] VITALS: BP 112/85
[2022-01-07] MEDS: METHADONE 5MG TAB PO SCH (21:07)
[2022-01-07] MEDS: METHADONE 10MG TAB PO SCH (21:07)
[2022-01-07 21:15] VITALS: BP 118/74
[2022-01-07] MEDS: ONDANSETRON 4MG 2ML VIAL IV PRN (22:13)
[2022-01-07 22:21] VITALS: BP 108/64
[2022-01-08] VITALS (38 sets, daily range): BP systolic 99–127; BP diastolic 55–81
[2022-01-08] MEDS: miSOPROStol 50MCG 1/2 TABLET PO SCH (02:21)
[2022-01-08] MEDS ORDERED: OXYTOCIN DRIP 30 UNITS in IV 1 EA IV SCH (08:45)
[2022-01-08] MEDS: LR 1,000 ML IV SCH ×4 (09:19→22:12)
[2022-01-08] MEDS ORDERED: ONDANSETRON 4MG 2ML VIAL IV PRN (10:15)
[2022-01-08] MEDS ORDERED: NALOXONE INJ 0.4MG/1ML VIAL (J2310 PER 1MG) IV PRN (10:15)
[2022-01-08] MEDS ORDERED: ePHEDrine SULFATE 25 MG/5 ML(5MG/ML) SYRINGE IVP PRN (10:15)
[2022-01-08] MEDS ORDERED: EPIDURAL/PCA KEYS XX PRN (10:15)
[2022-01-08] MEDS ORDERED: diphenhydrAMINE 50MG/ML VIAL (J1200) IV PRN (10:15)
[2022-01-08] MEDS ORDERED: LR 500 ML IV PRN (10:15)
[2022-01-08] MEDS: FENTANYL/ROPIVACAINE/NACL BAG 100 ML EPIDURAL SCH ×2 (12:22→17:54)
[2022-01-08] MEDS: METHADONE 5MG TAB PO SCH (13:25)
[2022-01-08] MEDS: METHADONE 10MG TAB PO SCH (13:25)
[2022-01-08] MEDS: ONDANSETRON 4MG 2ML VIAL IV PRN ×2 (13:26→18:55)
[2022-01-09] VITALS (10 sets, daily range): BP systolic 114–148; BP diastolic 73–89
[2022-01-09] MEDS: FENTANYL/ROPIVACAINE/NACL BAG 100 ML EPIDURAL SCH (00:01)
[2022-01-09] MEDS: METHADONE 5MG TAB PO SCH ×3 (01:08→21:49)
[2022-01-09] MEDS: METHADONE 10MG TAB PO SCH ×3 (01:08→21:49)
[2022-01-09 01:28] LABS: CORD GAS ABE V -4.7; CORD GAS HCO3 V 22.1 MEQ/L; CORD GAS O2 SAT V 17.3 %; CORD GAS PCO2 V 47.1 mmHg; CORD GAS PH V 7.29 UNITS; CORD GAS PO2 V 11.2 mmHg; CORD GAS SBC V 18.8 MEQ/L; CORD GAS TCO2 V 23.6 MEQ/L
[2022-01-09 01:31] LABS: CORD GAS ABE A -7.2; CORD GAS HCO3 A 19.5 MEQ/L; CORD GAS O2 SAT A 23.3 %; CORD GAS PCO2 A 43.5 mmHg; CORD GAS PH A 7.27 UNITS; CORD GAS PO2 A 12.9 mmHg; CORD GAS SBC A 17.1 MEQ/L; CORD GAS TCO2 A 20.9 MEQ/L
[2022-01-09] MEDS: ONDANSETRON 4MG 2ML VIAL IV PRN (01:47)
[2022-01-09] MEDS: LR 1,000 ML IV SCH (16:38)
[2022-01-09] MEDS ORDERED: ACETAMINOPHEN TAB 650MG DOSE (2X325MG) PO PRN (17:10)
[2022-01-09] MEDS ORDERED: IBUPROFEN 800 MG TAB PO PRN (17:10)
[2022-01-09] MEDS ORDERED: IBUPROFEN 600MG TAB PO PRN (17:10)
[2022-01-09] MEDS ORDERED: ACETAMINOPHEN 500 MG TAB PO PRN (17:10)
[2022-01-10 06:00] VITALS: BP 137/96
[2022-01-10] MEDS: METHADONE 10MG TAB PO SCH (08:20)
[2022-01-10] MEDS: METHADONE 5MG TAB PO SCH (08:20)
[2022-01-10] MEDS ORDERED: IBUP80TA PO (13:34)
[2022-01-10] MEDS ORDERED: ACET-683 PO (13:34)
[2022-01-14 17:07] LABS: Codeine Negative (Cutoff=200); GC Morphine 6592 ng/mL (Cutoff=200); Methadone Positive (.); Methadone Conf, MS, UR 8120 ng/mL (Cutoff=100); Morphine Positive (.); Opiates Positive (.)
== END 2022-01-10 14:30 | disposition home or self-care (01) | DRG 560 ==
LOC: M LDO 14:49 → M LDI 15:50 → M OBS 01-09 03:50
PROVIDERS: ADMIT Advanced Practice Midwife; ATTEND Advanced Practice Midwife
PROC: 10D07Z6 Extraction of Products of Conception, Vacuum, Via Natural or Artificial Opening (ICD-10-PCS; principal; 2022-01-09)
DX: O48.0 Post-term pregnancy (principal); O99.324 Drug use complicating childbirth; O98.42 Viral hepatitis complicating childbirth; Z37.0 Single live birth; Z3A.40 40 weeks gestation of pregnancy; O75.81 Maternal exhaustion complicating labor and delivery; O09.30 Supervision of pregnancy with insufficient antenatal care, unspecified trimester; F11.90 Opioid use, unspecified, uncomplicated; B18.2 Chronic viral hepatitis C

== ENCOUNTER 2022-05-05 01:52 | Emergency (ER) | payer OTHER ==
[~2022-05-05] VITALS: Ht 154.9 cm; Wt 45.5 kg
[~2022-05-05 01:52] MED LIST changes: +ACET-683 PO
[2022-05-05 02:14] VITALS: BP 175/99
[2022-05-05] MEDS ORDERED: ONDANSETRON 4MG ORAL DISINTEGRATING TAB PO ONE (04:00)
[2022-05-05] MEDS ORDERED: NS 1,000 ML IV ONE ×3 (04:15→06:00)
[2022-05-05 05:06] LABS: BASO % 0.2 % (0.0-1.0); HEMATOCRIT 46.3 % (36.0-47.0); HEMOGLOBIN 15.8 g/dl (12.0-15.5); LYMPH # 1.9 10^3/uL (1.5-5.0); LYMPH % 10.9 % (24.0-44.0); MEAN CORPUSCULAR HGB CONC 34.1 g/dl (32.0-36.5); MEAN CORPUSCULAR VOLUME 81.9 fl (80.0-96.0); MONO # 0.9 10^3/uL (0.0-0.8); MONO % 5.3 % (2.0-8.0); NEUTROPHILS # 14.6 10^3/uL (1.5-8.5); NEUTROPHILS % 83.1 % (36.0-66.0); PLATELET COUNT, AUTOMATED 582 10^3/uL (150-450); RED BLOOD COUNT 5.65 10^6/uL (4.00-5.40); WHITE BLOOD COUNT 17.6 10^3/uL (4.0-10.0)
[2022-05-05 05:17] LABS: ETHYL ALCOHOL (ETHANOL) 0.003 % (0.000-0.010)
[2022-05-05 05:19] LABS: ACETAMINOPHEN LEVEL < 2.0 UG/ML (10.0-20.0); ALBUMIN 4.2 G/DL (3.2-5.2); ALKALINE PHOSPHATASE 109 U/L (46-116); ALT/SGPT 36 U/L (7.0-40); AST/SGOT 26 U/L (<34); BILIRUBIN,DIRECT 0.1 MG/DL (<0.4); BILIRUBIN,TOTAL 0.3 MG/DL (0.3-1.2); BLOOD UREA NITROGEN 27 MG/DL (9-23); CARBON DIOXIDE LEVEL 21 MMOL/L (20-31); CHLORIDE LEVEL 104 MMOL/L (98-107); CPK CREATINE PHOSPHOKINASE 29 U/L (34-145); GLOMERULAR FILTRATION RATE > 60.0 (>60); GLUCOSE, FASTING 139 MG/DL (60-100); POTASSIUM SERUM 3.5 MMOL/L (3.5-5.1); SALICYLATE LEVEL < 3.0 MG/DL (<30); SODIUM LEVEL 142 MMOL/L (136-145); TOTAL PROTEIN 8.4 G/DL (5.7-8.2)
[2022-05-05 05:21] LABS: THYROID STIMULATING HORMONE 0.724 uIU/ML (0.55-4.78)
[2022-05-05 05:37] LABS: RSV AMPLIFICATION NEGATIVE (NEGATIVE)
[2022-05-05 05:53] LABS: AMPHETAMINES LEVEL URINE NEGATIVE (NEGATIVE); BARBITURATES URINE NEGATIVE (NEGATIVE); BENZODIAZEPINES URINE NEGATIVE (NEGATIVE); CANNABINOIDS URINE NEGATIVE (NEGATIVE); PHENCYCLIDINE URINE NEGATIVE (NEGATIVE)
[2022-05-05 05:54] LABS: COCAINE METABOLITE URINE NEGATIVE (NEGATIVE)
[2022-05-05 05:57] LABS: METHADONE URINE POSITIVE (NEGATIVE); OPIATES URINE POSITIVE (NEGATIVE)
[2022-05-05] MEDS ORDERED: METOCLOPRAMIDE INJ 10MG/2ML VIAL IV ONE (06:15)
[2022-05-05 06:19] LABS: APPEARANCE, URINE MANUAL TURBID (CLEAR); COLOR, URINE MANUAL YELLOW (YELLOW)
[2022-05-05 06:20] LABS: PROTEIN, URINE MANUAL 3+ mg/dL (NEGATIVE)
[2022-05-05 06:21] LABS: BILIRUBIN, URINE MANUAL NEGATIVE (NEGATIVE); BLOOD URINE MANUAL POSITIVE (NEGATIVE); GLUCOSE, URINE (UA) MANUAL NEGATIVE (NEGATIVE); KETONE, URINE MANUAL 2+ mg/dL (NEGATIVE); LEUKOCYTE ESTERASE, URINE MAN NEGATIVE (NEGATIVE); NITRITE, URINE MANUAL POSITIVE (NEGATIVE); UROBILINOGEN, URINE MANUAL NORMAL (NORMAL)
[2022-05-05] MEDS ORDERED: cefTRIAXone SOD 1 GM in D5W MINI-BAG PLUS 50 ML IV ONE (06:40)
[2022-05-05 06:50] LABS: AMORPHOUS SEDIMENT, URINE LARGE AMOUNT (NEGATIVE); BACTERIA, URINE SMALL AMOUNT; HYALINE CAST, URINE NONE SEEN /lpf (0-1); RBC, URINE NONE SEEN /hpf (0-3); SQUAMOUS EPITHELIAL CELL URINE MOD AMOUNT /hpf (SMALL AMT); WBC, URINE 0-1 /hpf (0-3)
== END 2022-05-05 07:30 | disposition left against medical advice (07) ==
LOC: M ED 01:52
DX: R10.9 Unspecified abdominal pain (principal); I49.3 Ventricular premature depolarization; F17.200 Nicotine dependence, unspecified, uncomplicated; Z79.1 Long term (current) use of non-steroidal anti-inflammatories (NSAID); Z79.891 Long term (current) use of opiate analgesic; Z53.9 Procedure and treatment not carried out, unspecified reason

== ENCOUNTER → 2022-06-19 | Outpatient (CLI) | payer MEDICAID | LOC: M OUTALCOH 07:50 | PROVIDERS: ATTEND Psychiatry & Neurology Psychiatry | DX: F10.10 Alcohol abuse, uncomplicated (principal) ==

== ENCOUNTER 2022-07-08 07:41 | Emergency (ER) | payer MEDICAID, OTHER ==
[2022-07-08] MEDS ORDERED: NS 1,000 ML IV ONE ×2 (07:50)
[2022-07-08] MEDS ORDERED: ONDANSETRON 4MG 2ML VIAL IV ONE (07:50)
[2022-07-08 08:57] LABS: AMPHETAMINES LEVEL URINE NEGATIVE (NEGATIVE); BARBITURATES URINE NEGATIVE (NEGATIVE); BENZODIAZEPINES URINE NEGATIVE (NEGATIVE)
[2022-07-08 08:58] LABS: CANNABINOIDS URINE NEGATIVE (NEGATIVE); COCAINE METABOLITE URINE NEGATIVE (NEGATIVE); METHADONE URINE NEGATIVE (NEGATIVE); OPIATES URINE POSITIVE (NEGATIVE); PHENCYCLIDINE URINE NEGATIVE (NEGATIVE)
[2022-07-08 09:19] LABS: BASO # 0.1 10^3/uL (0.0-0.2); BASO % 0.3 % (0.0-1.0); HEMATOCRIT 43.3 % (36.0-47.0); LYMPH # 1.3 10^3/uL (1.5-5.0); LYMPH % 7.6 % (24.0-44.0); MEAN CORPUSCULAR HEMOGLOBIN 28.6 pg (27.0-33.0); MEAN CORPUSCULAR HGB CONC 34.6 g/dl (32.0-36.5); MEAN CORPUSCULAR VOLUME 82.5 fl (80.0-96.0); MONO # 0.4 10^3/uL (0.0-0.8); MONO % 2.2 % (2.0-8.0); NEUTROPHILS # 15.7 10^3/uL (1.5-8.5); NEUTROPHILS % 89.4 % (36.0-66.0); PLATELET COUNT, AUTOMATED 599 10^3/uL (150-450); RED BLOOD COUNT 5.25 10^6/uL (4.00-5.40); WHITE BLOOD COUNT 17.5 10^3/uL (4.0-10.0)
[2022-07-08 09:32] LABS: INR 1.01; PARTIAL THROMBOPLASTIN TIME 26.6 SECONDS (24.8-34.2); PROTHROMBIN TIME 13.5 SECONDS (12.5-14.5)
[2022-07-08 09:41] LABS: ETHYL ALCOHOL (ETHANOL) 0.003 % (0.000-0.010); LIPASE 21 U/L (12-53)
[2022-07-08 09:43] LABS: ACETAMINOPHEN LEVEL < 2.0 UG/ML (10.0-20.0); AMYLASE 57 U/L (30-118); CPK CREATINE PHOSPHOKINASE 29 U/L (34-145); SALICYLATE LEVEL < 3.0 MG/DL (<30)
[2022-07-08 10:00] VITALS: BP 134/70
[2022-07-08 10:16] LABS: RSV AMPLIFICATION NEGATIVE (NEGATIVE)
[2022-07-08 10:18] LABS: ALBUMIN 4.5 G/DL (3.2-5.2); ALKALINE PHOSPHATASE 72 U/L (46-116); ALT/SGPT 16 U/L (7.0-40); AST/SGOT 16 U/L (<34); BILIRUBIN,DIRECT 0.2 MG/DL (<0.4); BILIRUBIN,TOTAL 0.5 MG/DL (0.3-1.2); BLOOD UREA NITROGEN 16 MG/DL (9-23); CALCIUM LEVEL 10.1 MG/DL (8.5-10.1); CARBON DIOXIDE LEVEL 20 MMOL/L (20-31); CHLORIDE LEVEL 107 MMOL/L (98-107); GLOMERULAR FILTRATION RATE > 60.0 (>60); GLUCOSE, FASTING 124 MG/DL (60-100); POTASSIUM SERUM 3.7 MMOL/L (3.5-5.1); SODIUM LEVEL 138 MMOL/L (136-145); THYROID STIMULATING HORMONE 0.232 uIU/ML (0.55-4.78)
[2022-07-08 12:25] LABS: HCG, SERUM QUALITATIVE POSITIVE (NEGATIVE)
[2022-07-08 18:19] LABS: TOTAL PROTEIN 7.9 G/DL (5.7-8.2)
== END 2022-07-08 10:06 | disposition home or self-care (01) ==
LOC: M ED 07:41
DX: O26.891 Other specified pregnancy related conditions, first trimester (principal); R10.9 Unspecified abdominal pain; F17.200 Nicotine dependence, unspecified, uncomplicated; F15.10 Other stimulant abuse, uncomplicated; F10.10 Alcohol abuse, uncomplicated; F41.9 Anxiety disorder, unspecified; F32.A Depression, unspecified; Z79.1 Long term (current) use of non-steroidal anti-inflammatories (NSAID)
CPT/HCPCS: 80048; 80076; 80143; 80307; 81001; 82077; 82150; 82550; 83605; 83690; 84443; 84703; 85025; 85610; 85730; 86850; 86900; 86901; 87040; 87088; 87186; 87631; 93041; 96361; 96374; 99284; J2405

== ENCOUNTER → 2022-11-07 | Outpatient (REF) | payer OTHER | LOC: M PLALAB 10:51 | PROVIDERS: ATTEND Specialist | DX: Z53.9 Procedure and treatment not carried out, unspecified reason (principal); Z34.82 Encounter for supervision of other normal pregnancy, second trimester ==

== ENCOUNTER → 2022-12-19 | Outpatient (CLI) | payer OTHER | LOC: M WHC 13:59 | PROVIDERS: ATTEND Specialist | DX: Z34.82 Encounter for supervision of other normal pregnancy, second trimester (principal); Z3A.29 29 weeks gestation of pregnancy ==

== ENCOUNTER → 2023-01-09 | Outpatient (REF) | payer OTHER | LOC: M PLALAB 15:17 | PROVIDERS: ATTEND Specialist | DX: Z34.82 Encounter for supervision of other normal pregnancy, second trimester (principal); Z53.9 Procedure and treatment not carried out, unspecified reason ==

== ENCOUNTER → 2023-01-28 | Outpatient (CLI) | payer OTHER ==
[~2023-01-28] MED LIST changes: +MULTTAB20 PO; +OLAN5ZYD PO; +ONDA4TAB6 PO; +ONDA4TAB6 SL; +PANT40TA29 PO; +VENTAER INH
== END ==
LOC: M PLALAB 13:31
PROVIDERS: ATTEND Specialist
DX: Z34.82 Encounter for supervision of other normal pregnancy, second trimester (principal)

== ENCOUNTER 2023-02-01 12:53 | Inpatient (IN) | payer MEDICAID, OTHER ==
[~2023-02-01 12:53] MED LIST changes: -OLAN5ZYD PO; -ONDA4TAB6 SL; -PANT40TA29 PO; -VENTAER INH
[2023-02-01] MEDS ORDERED: diphenhydrAMINE 25MG CAP PO PRN (13:55)
[2023-02-01] MEDS ORDERED: IBUPROFEN 400MG TAB PO PRN (13:55)
[2023-02-01] MEDS ORDERED: MAALOX 30 ML SUSP *UDC PO PRN (13:55)
[2023-02-01] MEDS ORDERED: traZODone 50 MG TAB PO PRN (13:55)
[2023-02-01] MEDS ORDERED: MOM 30ML SUSPENSION UDC PO PRN (13:55)
[2023-02-01] MEDS ORDERED: ACETAMINOPHEN TAB 650MG DOSE (2X325MG) PO PRN (13:55)
[2023-02-01] MEDS ORDERED: CLONI1TA PO (17:11)
[2023-02-01] MEDS ORDERED: OLAN5ZYD PO ×2 (17:11→19:38)
[2023-02-01] MEDS ORDERED: ONDA4TAB6 SL (17:11)
[2023-02-01] MEDS ORDERED: PANT40TA29 PO ×2 (17:11→19:38)
[2023-02-01] MEDS ORDERED: VENTAER INH ×2 (17:11→19:38)
[2023-02-01] MEDS ORDERED: METH-1177 PO ×2 (17:11→19:43)
[2023-02-01 19:15] VITALS: BP 111/65; TEMP 98.6; O2SAT 97
[2023-02-01] MEDS ORDERED: ONDA4TAB6 PO (19:38)
[2023-02-01] MEDS ORDERED: HOME MED LIST COMPLETE! XX SCH (19:45)
[2023-02-01 20:38] VITALS: BP 111/65
[2023-02-01] MEDS ORDERED: cloNIDine 0.1MG TABLET PO SCH (21:00)
[2023-02-01] MEDS ORDERED: METHADONE 10MG TAB PO PRN (21:00)
[2023-02-02 06:45] VITALS: BP 135/78; TEMP 98.6; O2SAT 98
[2023-02-02] MEDS ORDERED: PRENATAL VITAMINS CHEWABLE TABLET PO SCH (09:00)
== END 2023-02-02 06:52 | disposition short-term general hospital (02) | DRG 566 ==
LOC: M PSY 18:40
PROVIDERS: ADMIT Student in an Organized Health Care Education/Training Program; ATTEND Student in an Organized Health Care Education/Training Program
DX: O99.343 Other mental disorders complicating pregnancy, third trimester (principal); R45.851 Suicidal ideations; Z3A.34 34 weeks gestation of pregnancy; Z79.899 Other long term (current) drug therapy

== ENCOUNTER 2023-02-02 06:53 | Inpatient (IN) | payer OTHER ==
[2023-02-02] VITALS (11 sets, daily range): BP systolic 119–149; BP diastolic 73–88; O2SAT 92–96
[~2023-02-02] VITALS: Ht 152.4 cm; Wt 59.4 kg
[~2023-02-02 06:53] MED LIST changes: +OLAN5ZYD PO; +ONDA4TAB6 SL; +PANT40TA29 PO; +VENTAER INH
[2023-02-02] MEDS ORDERED: PENICILLIN G POTASSIUM 5 MU IV 5 MU in D5W MINI-BAG PLUS 100 ML IV STA (07:51)
[2023-02-02] MEDS ORDERED: LACTATED RINGER'S 1000 ML IV STA (07:51)
[2023-02-02] MEDS ORDERED: LIDOCAINE 1% MDV 20ML VIAL INFIL PRN (07:55)
[2023-02-02] MEDS: LR 1,000 ML IV SCH ×3 (07:55→23:55)
[2023-02-02] MEDS ORDERED: OXYTOCIN DRIP 30 UNITS in IV 1 EA IV PRN (07:55)
[2023-02-02] MEDS: BETAMETHASONE SOLUSPAN 6MG/ML 5ML VIAL IM SCH (08:34)
[2023-02-02] MEDS: METHADONE 10MG TAB PO SCH ×2 (09:50→19:16)
[2023-02-02] MEDS: ONDANSETRON 4MG ORAL DISINTEGRATING TAB PO PRN ×3 (10:14→20:08)
[2023-02-02 11:20] LABS: BASO % 0.2 % (0.0-1.0); EOS % 0.2 % (0.0-3.0); HEMATOCRIT 33.5 % (36.0-47.0); HEMOGLOBIN 11.3 g/dl (12.0-15.5); LYMPH % 12.7 % (24.0-44.0); MEAN CORPUSCULAR HEMOGLOBIN 28.2 pg (27.0-33.0); MEAN CORPUSCULAR HGB CONC 33.7 g/dl (32.0-36.5); MEAN CORPUSCULAR VOLUME 83.5 fl (80.0-96.0); MONO # 0.5 10^3/uL (0.0-0.8); MONO % 3.3 % (2.0-8.0); NEUTROPHILS # 12.9 10^3/uL (1.5-8.5); NEUTROPHILS % 82.6 % (36.0-66.0); PLATELET COUNT, AUTOMATED 402 10^3/uL (150-450); RED BLOOD COUNT 4.01 10^6/uL (4.00-5.40); WHITE BLOOD COUNT 15.6 10^3/uL (4.0-10.0)
[2023-02-02] MEDS ORDERED: PEN G POT 3,000,000 UNIT/50 ML 3,000,000 UNIT in IV 1 EA IV SCH (11:55)
[2023-02-02 12:08] LABS: HIV 1&2 SCREEN NEGATIVE (NEGATIVE)
[2023-02-02] MEDS: NICOTINE 21MG/24HR 1 EA TRANSDERMAL TD SCH (12:22)
[2023-02-02 12:32] LABS: CHLAMYDIA DNA AMPLIFICATION NEGATIVE (NEGATIVE); GC DNA AMPLIFICATION NEGATIVE (NEGATIVE)
[2023-02-02] MEDS ORDERED: HOME MED LIST COMPLETE! XX SCH (12:45)
[2023-02-02 12:54] LABS: HEPATITIS C VIRUS ABY INDEX > 11.00 INDEX (<0.8)
[2023-02-02] MEDS: ACETAMINOPHEN 500 MG TAB PO PRN ×2 (17:09→17:36)
[2023-02-02] MEDS ORDERED: **PENDING PCN ENTRY XX SCH (21:00)
[2023-02-02] MEDS ORDERED: cloNIDine HCL 0.1 MG/24 HR PATCH TOP SCH (21:10)
[2023-02-02] MEDS ORDERED: METHADONE 10MG TAB PO PRN (21:25)
[2023-02-02] MEDS ORDERED: OLANZapine INTRAMUSCULAR 10MG VIAL IM PRN (21:45)
[2023-02-02] MEDS ORDERED: PROMETHAZINE 25MG/ML 1ML VIAL IM ONE (22:40)
[2023-02-03 01:00] VITALS: BP 120/82
[2023-02-03] MEDS: ONDANSETRON 4MG ORAL DISINTEGRATING TAB PO PRN (01:01)
[2023-02-03] MEDS ORDERED: PROMETHAZINE 25MG/ML 1ML VIAL IM PRN (05:15)
[2023-02-03] MEDS ORDERED: ONDANSETRON 4MG ORAL DISINTEGRATING TAB PO PRN (05:15)
[2023-02-03] MEDS: BETAMETHASONE SOLUSPAN 6MG/ML 5ML VIAL IM SCH (08:00)
[2023-02-03] MEDS: LR 1,000 ML IV SCH ×3 (08:10→19:27)
[2023-02-03] MEDS: ONDANSETRON 4MG 2ML VIAL IV PRN ×3 (08:38→16:33)
[2023-02-03 08:45] VITALS: BP 141/89; O2SAT 96
[2023-02-03] MEDS: METHADONE 10MG TAB PO SCH ×2 (08:55→21:00)
[2023-02-03] MEDS: NICOTINE 21MG/24HR 1 EA TRANSDERMAL TD SCH (08:58)
[2023-02-03] MEDS ORDERED: METHADONE 10MG TAB PO ONE (09:30)
[2023-02-03] MEDS ORDERED: CALCIUM CARBONATE 500 MG CHEW U/D PO PRN (10:05)
[2023-02-03] MEDS: PROMETHAZINE 25MG/ML 1ML VIAL IV PRN ×2 (13:53→20:09)
[2023-02-03 14:13] LABS: ALBUMIN 2.3 G/DL (3.2-5.2); ALKALINE PHOSPHATASE 236 U/L (46-116); ALT/SGPT 117 U/L (7.0-40); AST/SGOT 105 U/L (<34); BILIRUBIN,TOTAL 0.4 MG/DL (0.3-1.2); BLOOD UREA NITROGEN 6 MG/DL (9-23); CALCIUM LEVEL 8.5 MG/DL (8.5-10.1); CARBON DIOXIDE LEVEL 16 MMOL/L (20-31); CHLORIDE LEVEL 106 MMOL/L (98-107); CREATININE FOR GFR 0.47 MG/DL (0.55-1.30); GLOMERULAR FILTRATION RATE > 60.0 (>60); GLUCOSE, FASTING 102 MG/DL (60-100); MAGNESIUM LEVEL 1.8 MG/DL (1.8-2.4); POTASSIUM SERUM 4.3 MMOL/L (3.5-5.1); SODIUM LEVEL 139 MMOL/L (136-145)
[2023-02-03] MEDS ORDERED: diphenhydrAMINE 50MG/ML VIAL IV PRN ×2 (15:05→18:30)
[2023-02-03] MEDS ORDERED: PANTOPRAZOLE 40MG VIAL IV ONE (16:00)
[2023-02-03 16:46] VITALS: BP 133/87
[2023-02-03 16:57] LABS: ALBUMIN 2.2 G/DL (3.2-5.2); ALKALINE PHOSPHATASE 219 U/L (46-116); ALT/SGPT 386 U/L (7.0-40); AST/SGOT 444 U/L (<34); BILIRUBIN,TOTAL 0.5 MG/DL (0.3-1.2); BLOOD UREA NITROGEN 6 MG/DL (9-23); CALCIUM LEVEL 7.9 MG/DL (8.5-10.1); CARBON DIOXIDE LEVEL 20 MMOL/L (20-31); CHLORIDE LEVEL 104 MMOL/L (98-107); CREATININE FOR GFR 0.47 MG/DL (0.55-1.30); GLOMERULAR FILTRATION RATE > 60.0 (>60); GLUCOSE, FASTING 92 MG/DL (60-100); MAGNESIUM LEVEL 1.8 MG/DL (1.8-2.4); POTASSIUM SERUM 3.6 MMOL/L (3.5-5.1); SODIUM LEVEL 138 MMOL/L (136-145); TOTAL PROTEIN 5.7 G/DL (5.7-8.2)
[2023-02-03 18:52] LABS: LIPASE 20 U/L (12-53)
[2023-02-03 18:54] LABS: AMYLASE 59 U/L (30-118)
[2023-02-03] MEDS ORDERED: SCOPOLAMINE 1MG TRANSDERMAL PATCH TOP ONE (19:00)
[2023-02-03 19:28] VITALS: BP 135/80
[2023-02-03 23:43] VITALS: BP 127/77
[2023-02-04] VITALS (29 sets, daily range): BP systolic 118–154; BP diastolic 76–97; O2SAT 91–95
[2023-02-04] MEDS: PROMETHAZINE 25MG/ML 1ML VIAL IV PRN ×2 (04:02→10:20)
[2023-02-04] MEDS: METHADONE 10MG TAB PO SCH ×2 (04:40→22:34)
[2023-02-04] MEDS ORDERED: PANTOPRAZOLE 40MG VIAL IV SCH (08:00)
[2023-02-04] MEDS: LR 1,000 ML IV SCH ×2 (11:17→15:51)
[2023-02-04] MEDS ORDERED: diphenhydrAMINE 50MG/ML VIAL IV PRN (14:00)
[2023-02-04] MEDS ORDERED: FENTANYL/ROPIVACAINE/NACL BAG 100 ML EPIDURAL SCH (14:00)
[2023-02-04] MEDS ORDERED: LR 500 ML IV PRN (14:00)
[2023-02-04] MEDS ORDERED: ONDANSETRON 4MG 2ML VIAL IV PRN (14:00)
[2023-02-04] MEDS ORDERED: NALOXONE INJ 0.4MG/1ML VIAL IV PRN (14:00)
[2023-02-04] MEDS ORDERED: ePHEDrine SULFATE 25 MG/5 ML(5MG/ML) SYRINGE IVP PRN (14:00)
[2023-02-04] MEDS ORDERED: EPIDURAL/PCA KEYS XX PRN (14:00)
[2023-02-04] MEDS ORDERED: OXYTOCIN DRIP 30 UNITS in IV 1 EA IV SCH ×2 (17:15→18:35)
[2023-02-04 18:29] LABS: CORD GAS ABE V -2.5; CORD GAS HCO3 V 20.1 MMOL/L; CORD GAS O2 SAT V 79.3 %; CORD GAS PCO2 V 29.7 mmHg; CORD GAS PH V 7.448 UNITS; CORD GAS PO2 V 31.1 mmHg; CORD GAS SBC V 21.9 MMOL/L
[2023-02-04 18:31] LABS: CORD GAS ABE A -4.1; CORD GAS HCO3 A 22.5 MMOL/L; CORD GAS O2 SAT A 62.7 %; CORD GAS PCO2 A 46.2 mmHg; CORD GAS PH A 7.305 UNITS; CORD GAS SBC A 20.2 MMOL/L; CORD GAS TCO2 A 23.9 MMOL/L
[2023-02-04] MEDS ORDERED: ACETAMINOPHEN TAB 650MG DOSE (2X325MG) PO PRN (18:35)
[2023-02-04] MEDS ORDERED: METHYLERGONOVINE MALEATE 0.2 MG TAB PO PRN (18:35)
[2023-02-04] MEDS ORDERED: DOCUSATE SODIUM 100MG CAPSULE PO PRN (18:35)
[2023-02-04] MEDS ORDERED: DIBUCAINE 1% OINTMENT 30GM TOP PRN (18:35)
[2023-02-04] MEDS ORDERED: IBUPROFEN 800 MG TAB PO PRN (18:35)
[2023-02-04] MEDS ORDERED: ACETAMINOPHEN 500 MG TAB PO PRN (18:35)
[2023-02-04] MEDS ORDERED: RHOGAM 300MCG (1500IU) INJ IM SCH (18:35)
[2023-02-04] MEDS ORDERED: IBUPROFEN 600MG TAB PO PRN (18:35)
[2023-02-04] MEDS ORDERED: ONDANSETRON 4MG ORAL DISINTEGRATING TAB PO PRN (22:20)
[2023-02-05 06:00] VITALS: BP 139/92; O2SAT 96
[2023-02-05] MEDS: METHADONE 10MG TAB PO SCH (09:00)
[2023-02-05] MEDS ORDERED: PRENATAL VITAMINS CHEWABLE TABLET PO SCH (09:00)
[2023-02-06] MEDS ORDERED: MEASLES,MUMPS,RUBELLA VACCINE INJ (MMR-II) SC.IMMUN ONE (09:00)
== END 2023-02-05 18:05 | disposition home or self-care (01) | DRG 560 ==
LOC: M LDO 06:53 → M LDI 07:21 → M OBS 02-04 20:20
PROVIDERS: ADMIT Specialist; ATTEND Specialist
PROC: 10E0XZZ Delivery of Products of Conception, External Approach (ICD-10-PCS; principal; 2023-02-04)
PROC: 10907ZC Drainage of Amniotic Fluid, Therapeutic from Products of Conception, Via Natural or Artificial Opening (ICD-10-PCS; 2023-02-04)
DX: O60.14X0 Preterm labor third trimester with preterm delivery third trimester, not applicable or unspecified (principal); Z37.0 Single live birth; Z3A.34 34 weeks gestation of pregnancy; F17.200 Nicotine dependence, unspecified, uncomplicated; O99.344 Other mental disorders complicating childbirth; B18.2 Chronic viral hepatitis C; O98.42 Viral hepatitis complicating childbirth; F11.20 Opioid dependence, uncomplicated; O99.324 Drug use complicating childbirth; Z86.16 Personal history of COVID-19; Z79.899 Other long term (current) drug therapy; O99.334 Smoking (tobacco) complicating childbirth

== ENCOUNTER 2023-02-17 05:21 | Emergency (ER) | payer OTHER ==
[~2023-02-17] VITALS: Ht 152.4 cm; Wt 45.5 kg
[2023-02-17 05:55] LABS: BASO % 0.5 % (0.0-1.0); EOS # 0.1 10^3/uL (0.0-0.5); EOS % 1.3 % (0.0-3.0); HEMATOCRIT 42.3 % (36.0-47.0); HEMOGLOBIN 13.6 g/dl (12.0-15.5); LYMPH # 2.8 10^3/uL (1.5-5.0); LYMPH % 36.4 % (24.0-44.0); MEAN CORPUSCULAR HEMOGLOBIN 27.2 pg (27.0-33.0); MEAN CORPUSCULAR HGB CONC 32.2 g/dl (32.0-36.5); MEAN CORPUSCULAR VOLUME 84.6 fl (80.0-96.0); MONO # 0.6 10^3/uL (0.0-0.8); MONO % 7.5 % (2.0-8.0); NEUTROPHILS # 4.2 10^3/uL (1.5-8.5); PLATELET COUNT, AUTOMATED 710 10^3/uL (150-450); WHITE BLOOD COUNT 7.8 10^3/uL (4.0-10.0)
[2023-02-17 06:13] LABS: INR 1.05; PROTHROMBIN TIME 13.4 SECONDS (12.5-14.5)
[2023-02-17 06:15] LABS: LIPASE 26 U/L (12-53)
[2023-02-17 06:17] LABS: CPK CREATINE PHOSPHOKINASE 18 U/L (34-145)
[2023-02-17 06:18] LABS: ALBUMIN 3.3 G/DL (3.2-5.2); ALKALINE PHOSPHATASE 177 U/L (46-116); ALT/SGPT 26 U/L (7.0-40); AST/SGOT 20 U/L (<34); BILIRUBIN,DIRECT 0.1 MG/DL (<0.4); BILIRUBIN,TOTAL 0.4 MG/DL (0.3-1.2); BLOOD UREA NITROGEN 15 MG/DL (9-23); CALCIUM LEVEL 9.6 MG/DL (8.5-10.1); CARBON DIOXIDE LEVEL 24 MMOL/L (20-31); CHLORIDE LEVEL 103 MMOL/L (98-107); CK-MB VALUE MASS < 1.0 NG/ML (<3.6); CREATININE FOR GFR 0.58 MG/DL (0.55-1.30); GLOMERULAR FILTRATION RATE > 60.0 (>60); GLUCOSE, FASTING 106 MG/DL (60-100); MB/CK RELATIVE INDEX 5.55 (< OR =4); POTASSIUM SERUM 4.5 MMOL/L (3.5-5.1); SODIUM LEVEL 138 MMOL/L (136-145); TOTAL PROTEIN 7.3 G/DL (5.7-8.2)
[2023-02-17 06:41] LABS: ETHYL ALCOHOL (ETHANOL) 0.009 % (0.000-0.010)
[2023-02-17 06:42] LABS: SALICYLATE LEVEL < 3.0 MG/DL (<30)
[2023-02-17] MEDS ORDERED: NS 1,000 ML IV ONE (06:50)
[2023-02-17] MEDS ORDERED: diazePAM 10MG/2ML SYRINGE IV ONE (06:50)
[2023-02-17] MEDS ORDERED: LIDOCAINE 2% 5ML JELLY UROJET TOP ONE ×2 (07:25→08:45)
[2023-02-17 09:19] LABS: AMPHETAMINES LEVEL URINE NEGATIVE (NEGATIVE); BARBITURATES URINE NEGATIVE (NEGATIVE); COCAINE METABOLITE URINE NEGATIVE (NEGATIVE)
[2023-02-17 09:20] LABS: CANNABINOIDS URINE NEGATIVE (NEGATIVE); METHADONE URINE NEGATIVE (NEGATIVE); PHENCYCLIDINE URINE NEGATIVE (NEGATIVE)
[2023-02-17 09:21] LABS: BENZODIAZEPINES URINE POSITIVE (NEGATIVE); OPIATES URINE POSITIVE (NEGATIVE)
[2023-02-17 10:00] VITALS: BP 135/83; O2SAT 96
[2023-02-17] MEDS ORDERED: PERCOCET 5MG/325MG TAB PO ONE (10:40)
[2023-02-17 10:49] VITALS: TEMP 98.8
[2023-02-17] MEDS ORDERED: CLONI1TA PO (18:53)
[2023-02-17] MEDS ORDERED: QUET50TA4 PO (18:53)
== END 2023-02-17 11:07 | disposition home or self-care (01) ==
LOC: EDBD 05:21 → M ED 05:21
DX: F19.10 Other psychoactive substance abuse, uncomplicated (principal); F32.A Depression, unspecified; F41.9 Anxiety disorder, unspecified; F17.200 Nicotine dependence, unspecified, uncomplicated; Z79.52 Long term (current) use of systemic steroids; Z79.891 Long term (current) use of opiate analgesic; Z79.899 Other long term (current) drug therapy
CPT/HCPCS: 36415; 51701; 80048; 80076; 80143; 80307; 82077; 82550; 82553; 83690; 85025; 85610; 93005; 93041; 94760; 96361; 96374; 99285; J3360

== ENCOUNTER 2023-02-17 18:18 | Emergency (ER) | payer OTHER ==
[~2023-02-17] VITALS: Ht 154.9 cm; Wt 45.5 kg
[2023-02-17] MEDS ORDERED: QUET50TA4 PO (18:53)
[2023-02-17] MEDS ORDERED: CLONI1TA PO (18:53)
[2023-02-17] MEDS ORDERED: LORazepam 2 MG/ML 1ML VIAL IV STA (20:11)
[2023-02-17] MEDS ORDERED: NS 1,000 ML IV ONE (20:15)
[2023-02-17 20:59] LABS: HEMATOCRIT 36.5 % (36.0-47.0); HEMOGLOBIN 12.1 g/dl (12.0-15.5); MEAN CORPUSCULAR HEMOGLOBIN 27.9 pg (27.0-33.0); MEAN CORPUSCULAR HGB CONC 33.2 g/dl (32.0-36.5); MEAN CORPUSCULAR VOLUME 84.1 fl (80.0-96.0); PLATELET COUNT, AUTOMATED 648 10^3/uL (150-450); RED BLOOD COUNT 4.34 10^6/uL (4.00-5.40); WHITE BLOOD COUNT 7.9 10^3/uL (4.0-10.0)
[2023-02-17 21:10] LABS: ETHYL ALCOHOL (ETHANOL) 0.005 % (0.000-0.010)
[2023-02-17 21:11] LABS: SALICYLATE LEVEL < 3.0 MG/DL (<30)
[2023-02-17 21:14] LABS: THYROID STIMULATING HORMONE 0.359 uIU/ML (0.55-4.78)
[2023-02-17 21:15] LABS: ALKALINE PHOSPHATASE 153 U/L (46-116); ALT/SGPT 18 U/L (7.0-40); AST/SGOT 16 U/L (<34); BILIRUBIN,DIRECT 0.1 MG/DL (<0.4); BILIRUBIN,TOTAL 0.4 MG/DL (0.3-1.2); BLOOD UREA NITROGEN 15 MG/DL (9-23); CALCIUM LEVEL 9.1 MG/DL (8.5-10.1); CARBON DIOXIDE LEVEL 23 MMOL/L (20-31); CHLORIDE LEVEL 107 MMOL/L (98-107); CREATININE FOR GFR 0.47 MG/DL (0.55-1.30); GLOMERULAR FILTRATION RATE > 60.0 (>60); GLUCOSE, FASTING 106 MG/DL (60-100); POTASSIUM SERUM 4.3 MMOL/L (3.5-5.1); SODIUM LEVEL 140 MMOL/L (136-145); TOTAL PROTEIN 6.8 G/DL (5.7-8.2)
[2023-02-17 21:32] LABS: HCG, SERUM QUALITATIVE NEGATIVE (NEGATIVE)
[2023-02-18] MEDS ORDERED: NS 1,000 ML IV ONE ×2 (00:20)
[2023-02-18 02:57] LABS: AMPHETAMINES LEVEL URINE NEGATIVE (NEGATIVE); BARBITURATES URINE NEGATIVE (NEGATIVE); CANNABINOIDS URINE NEGATIVE (NEGATIVE); COCAINE METABOLITE URINE NEGATIVE (NEGATIVE); METHADONE URINE NEGATIVE (NEGATIVE); PHENCYCLIDINE URINE NEGATIVE (NEGATIVE)
[2023-02-18 03:10] LABS: BENZODIAZEPINES URINE POSITIVE (NEGATIVE); OPIATES URINE POSITIVE (NEGATIVE)
[2023-02-18] MEDS ORDERED: cloNIDine 0.1MG TABLET PO ONE (06:30)
[2023-02-18 12:57] VITALS: BP 133/77; TEMP 98; O2SAT 97
== END 2023-02-18 13:30 | disposition home or self-care (01) ==
LOC: M ED 18:18
DX: F19.120 Other psychoactive substance abuse with intoxication, uncomplicated (principal); R45.851 Suicidal ideations; F32.A Depression, unspecified; F41.9 Anxiety disorder, unspecified; B19.9 Unspecified viral hepatitis without hepatic coma; F17.200 Nicotine dependence, unspecified, uncomplicated
CPT/HCPCS: 51701; 80048; 80076; 80143; 80307; 82077; 84443; 84703; 85027; 87635; 96360; 96361; 96374; 99285; J2060

== ENCOUNTER → 2023-04-11 | Outpatient (CLI) | payer OTHER ==
[~2023-04-11] MED LIST changes: +QUET50TA4 PO
== END ==
LOC: M LAB 11:41
PROVIDERS: ATTEND Family Medicine
DX: F11.20 Opioid dependence, uncomplicated (principal)
CPT/HCPCS: 36415; G0480

== ENCOUNTER → 2023-04-12 | Outpatient (CLI) | payer OTHER | LOC: M LAB 09:31 | PROVIDERS: ATTEND Family Medicine | DX: F11.20 Opioid dependence, uncomplicated (principal) | CPT/HCPCS: 36415; G0480 ==

== ENCOUNTER 2023-11-16 23:16 | Inpatient (IN) | payer MEDICAID, OTHER ==
[~2023-11-16] VITALS: Ht 154.9 cm; Wt 42.4 kg
[~2023-11-16 23:16] MED LIST changes: +ONDA-282 PO; +ONDA-282 SL; -ONDA4TAB6 PO; -ONDA4TAB6 SL
[2023-11-17] MEDS ORDERED: LORazepam 2 MG/ML 1ML VIAL IM STA (00:08)
[2023-11-17 00:33] LABS: BARBITURATES URINE NEGATIVE (NEGATIVE); COCAINE METABOLITE URINE NEGATIVE (NEGATIVE)
[2023-11-17 00:34] LABS: BENZODIAZEPINES URINE NEGATIVE (NEGATIVE); CANNABINOIDS URINE NEGATIVE (NEGATIVE); PHENCYCLIDINE URINE NEGATIVE (NEGATIVE)
[2023-11-17 00:35] LABS: AMPHETAMINES LEVEL URINE POSITIVE (NEGATIVE); METHADONE URINE POSITIVE (NEGATIVE); OPIATES URINE POSITIVE (NEGATIVE)
[2023-11-17 01:15] LABS: VENOUS BASE EXCESS 1.9 (-2.0-2.0); VENOUS O2 SATURATION 37.9 % (60.0-80.0); VENOUS PARTIAL PRESSURE CO2 34.9 mmHg (38.0-50.0); VENOUS PARTIAL PRESSURE O2 20.4 mmHg (30.0-50.0); VENOUS PH 7.473 UNITS (7.330-7.430); VENOUS STANDARD HCO3 24.4 MMOL/L; VENOUS TOTAL CO2 26.1 MMOL/L (24.0-28.0)
[2023-11-17] MEDS: LORazepam 2 MG/ML 1ML VIAL IV STA ×3 (01:15→02:59)
[2023-11-17 01:21] LABS: BASO % 0.3 % (0.0-1.0); HEMATOCRIT 48.1 % (36.0-47.0); HEMOGLOBIN 16.4 g/dl (12.0-15.5); LYMPH # 3.2 10^3/uL (1.5-5.0); LYMPH % 23.4 % (24.0-44.0); MEAN CORPUSCULAR HGB CONC 34.1 g/dl (32.0-36.5); MEAN CORPUSCULAR VOLUME 82.1 fl (80.0-96.0); MONO # 1.1 10^3/uL (0.0-0.8); MONO % 7.8 % (2.0-8.0); NEUTROPHILS # 9.3 10^3/uL (1.5-8.5); NEUTROPHILS % 68.3 % (36.0-66.0); PLATELET COUNT, AUTOMATED 660 10^3/uL (150-450); RED BLOOD COUNT 5.86 10^6/uL (4.00-5.40); WHITE BLOOD COUNT 13.6 10^3/uL (4.0-10.0)
[2023-11-17 01:47] LABS: ETHYL ALCOHOL (ETHANOL) < 0.003 % (0.000-0.010)
[2023-11-17 01:49] LABS: ALBUMIN 5.5 G/DL (3.2-5.2); ALKALINE PHOSPHATASE 121 U/L (46-116); ALT/SGPT 147 U/L (7.0-40); AST/SGOT 166 U/L (<34); BILIRUBIN,DIRECT 0.4 MG/DL (<0.4); BILIRUBIN,TOTAL 1.2 MG/DL (0.3-1.2); BLOOD UREA NITROGEN 26 MG/DL (9-23); CALCIUM LEVEL 10.6 MG/DL (8.5-10.1); CARBON DIOXIDE LEVEL 25 MMOL/L (20-31); CHLORIDE LEVEL 102 MMOL/L (98-107); CREATININE FOR GFR 0.62 MG/DL (0.55-1.30); GLOMERULAR FILTRATION RATE > 60.0 (>60); GLUCOSE, FASTING 106 MG/DL (60-100); POTASSIUM SERUM 3.8 MMOL/L (3.5-5.1); SALICYLATE LEVEL < 3.0 MG/DL (<30); SODIUM LEVEL 137 MMOL/L (136-145); TOTAL PROTEIN 9.8 G/DL (5.7-8.2)
[2023-11-17 01:51] LABS: THYROID STIMULATING HORMONE 0.697 uIU/ML (0.55-4.78)
[2023-11-17 01:59] LABS: CPK CREATINE PHOSPHOKINASE 31 U/L (34-145)
[2023-11-17 02:04] LABS: HCG, SERUM QUALITATIVE NEGATIVE (NEGATIVE)
[2023-11-17 02:32] LABS: OSMOLALITY SERUM 308 MOSM/KG (275-295)
[2023-11-17] MEDS: NS 1,000 ML IV ONE ×2 (03:06→04:25)
[2023-11-17 05:37] LABS: ALBUMIN 3.2 G/DL (3.2-5.2); BILIRUBIN,DIRECT 0.3 MG/DL (<0.4); BILIRUBIN,TOTAL 0.6 MG/DL (0.3-1.2)
[2023-11-17] MEDS ORDERED: ZOLO100T PO (09:54)
[2023-11-17] MEDS ORDERED: METH10CO PO (09:54)
[2023-11-17] MEDS ORDERED: QUET200T2 PO (09:54)
[2023-11-17] MEDS ORDERED: CLON-412 PO (09:54)
[2023-11-17] MEDS ORDERED: HOME MED LIST COMPLETE! XX SCH (09:55)
[2023-11-17] MEDS: ONDANSETRON 4MG ORAL DISINTEGRATING TAB PO ONE (13:03)
[2023-11-18] MEDS: ONDANSETRON 4MG ORAL DISINTEGRATING TAB PO ONE (02:22)
[2023-11-18] MEDS: cloNIDine 0.1MG TABLET PO ONE (02:23)
[2023-11-18] MEDS: METHADONE 10MG TAB PO ONE (09:39)
[2023-11-18] MEDS ORDERED: IBUPROFEN 400MG TAB PO PRN (12:15)
[2023-11-18] MEDS ORDERED: MAALOX 30 ML SUSP *UDC PO PRN (12:15)
[2023-11-18] MEDS ORDERED: MOM 30ML SUSPENSION UDC PO PRN (12:15)
[2023-11-18] MEDS ORDERED: ACETAMINOPHEN TAB 650MG DOSE (2X325MG) PO PRN (12:15)
[2023-11-18 15:05] VITALS: BP 104/83; TEMP 98.3; O2SAT 100
[2023-11-18] MEDS: diphenhydrAMINE 25MG CAP PO PRN (17:39)
[2023-11-18] MEDS: ONDANSETRON 4MG ORAL DISINTEGRATING TAB PO PRN (20:59)
[2023-11-19] MEDS: cloNIDine 0.1MG TABLET PO SCH (11:53)
[2023-11-19 11:59] VITALS: BP 100/62
[2023-11-19] MEDS: METHADONE 10MG TAB PO SCH (12:03)
[2023-11-19 13:48] VITALS: BP 113/75; O2SAT 98
[2023-11-19] MEDS: traZODone 50 MG TAB PO PRN (20:36)
[2023-11-19] MEDS ORDERED: QUEtiapine FUMARATE 200 MG TAB PO SCH (21:00)
[2023-11-19] MEDS ORDERED: OLANZapine ORAL DISINTEGRATING TAB 5MG PO PRN (22:45)
[2023-11-19] MEDS: ONDANSETRON 4MG ORAL DISINTEGRATING TAB PO ONE (23:20)
[2023-11-19] MEDS: cloNIDine 0.1MG TABLET PO PRN (23:20)
[2023-11-19 23:22] VITALS: BP 116/66; TEMP 98.4; O2SAT 100
[2023-11-20 08:05] VITALS: BP 129/70; TEMP 97.9; O2SAT 98
[2023-11-20] MEDS ORDERED: METHADONE 10MG TAB PO SCH (09:00)
[2023-11-20] MEDS ORDERED: SERTRALINE 100 MG TAB PO SCH (09:00)
[2023-11-20] MEDS: NICOTINE 21MG/24HR 1 EA TRANSDERMAL TD SCH (14:52)
[2023-11-20 15:48] VITALS: BP 113/65; TEMP 97.1; O2SAT 100
[2023-11-20 20:42] VITALS: BP 163/83; TEMP 97.4; O2SAT 99
[2023-11-21] MEDS: ONDANSETRON 4MG ORAL DISINTEGRATING TAB PO PRN (00:08)
[2023-11-21 00:09] VITALS: BP 163/83
[2023-11-21 06:35] LABS: BASO % 0.4 % (0.0-1.0); EOS % 0.3 % (0.0-3.0); HEMATOCRIT 44.7 % (36.0-47.0); HEMOGLOBIN 15.2 g/dl (12.0-15.5); LYMPH # 2.4 10^3/uL (1.5-5.0); LYMPH % 30.5 % (24.0-44.0); MEAN CORPUSCULAR VOLUME 82.5 fl (80.0-96.0); MONO # 0.6 10^3/uL (0.0-0.8); MONO % 7.8 % (2.0-8.0); NEUTROPHILS # 4.8 10^3/uL (1.5-8.5); NEUTROPHILS % 60.7 % (36.0-66.0); PLATELET COUNT, AUTOMATED 544 10^3/uL (150-450); RED BLOOD COUNT 5.42 10^6/uL (4.00-5.40); WHITE BLOOD COUNT 7.9 10^3/uL (4.0-10.0)
[2023-11-21 07:11] LABS: ALKALINE PHOSPHATASE 76 U/L (46-116); ALT/SGPT 28 U/L (7.0-40); AST/SGOT 15 U/L (<34); BILIRUBIN,TOTAL 0.6 MG/DL (0.3-1.2); BLOOD UREA NITROGEN 13 MG/DL (9-23); CALCIUM LEVEL 9.6 MG/DL (8.5-10.1); CARBON DIOXIDE LEVEL 28 MMOL/L (20-31); CHLORIDE LEVEL 107 MMOL/L (98-107); CREATININE FOR GFR 0.58 MG/DL (0.55-1.30); GLOMERULAR FILTRATION RATE > 60.0 (>60); GLUCOSE, FASTING 96 MG/DL (60-100); MAGNESIUM LEVEL 2.4 MG/DL (1.8-2.4); POTASSIUM SERUM 3.6 MMOL/L (3.5-5.1); SODIUM LEVEL 142 MMOL/L (136-145); TOTAL PROTEIN 7.2 G/DL (5.7-8.2)
[2023-11-21] MEDS: FAMOTIDINE 20 MG TAB PO SCH (09:27)
[2023-11-21] MEDS: PANTOPRAZOLE 40MG TAB (PROTONIX) PO SCH (09:27)
== END 2023-11-21 12:15 | disposition home or self-care (01) | DRG 754 ==
LOC: M ED 23:16 → M ED INP 11-18 12:11 → M PSY 11-18 15:06
PROVIDERS: ADMIT Psychiatry & Neurology Child & Adolescent Psychiatry; ATTEND Psychiatry & Neurology Child & Adolescent Psychiatry
DX: F32.A Depression, unspecified (principal); F17.210 Nicotine dependence, cigarettes, uncomplicated; F15.90 Other stimulant use, unspecified, uncomplicated; F11.13 Opioid abuse with withdrawal; Z91.51 Personal history of suicidal behavior; Z79.899 Other long term (current) drug therapy; K29.70 Gastritis, unspecified, without bleeding

== ENCOUNTER 2024-12-02 04:00 | Emergency (ER) | payer SELFPAY ==
[~2024-12-02 04:00] MED LIST changes: +CLON-412 PO; +GABA-1172 PO; -GABA-282 PO; +METH10CO PO; +QUET200T2 PO; +ZOLO100T PO
[2024-12-02] MEDS: ONDANSETRON 4MG 2ML VIAL IV ONE (04:20)
[2024-12-02 04:41] LABS: BASO # 0.0 10^3/uL (0.0-0.2); BASO % 0.4 % (0.0-1.0); EOS # 0.0 10^3/uL (0.0-0.5); EOS % 0.3 % (0.0-3.0); LYMPH # 2.3 10^3/uL (1.5-5.0); LYMPH % 29.6 % (24.0-44.0); MONO # 0.4 10^3/uL (0.0-0.8); MONO % 5.5 % (2.0-8.0); NEUTROPHILS # 4.9 10^3/uL (1.5-8.5); NEUTROPHILS % 63.9 % (36.0-66.0); PLATELET COUNT, AUTOMATED 516 10^3/uL (150-450)
[2024-12-02 04:45] VITALS: BP 129/78; O2SAT 100
[2024-12-02] MEDS: NS (Normal Saline) 0.9% 1,000 ML IV ONE (04:51)
[2024-12-02 05:19] LABS: ALT/SGPT 14 U/L (7.0-40); AST/SGOT 16 U/L (<34); CALCIUM LEVEL 9.5 MG/DL (8.5-10.1); CARBON DIOXIDE LEVEL 20 MMOL/L (20-31); CHLORIDE LEVEL 112 MMOL/L (98-107); CREATININE FOR GFR 0.55 MG/DL (0.55-1.30); GLOMERULAR FILTRATION RATE > 90.0 (>60); POTASSIUM SERUM 3.9 MMOL/L (3.5-5.1); SODIUM LEVEL 146 MMOL/L (136-145)
[2024-12-02] MEDS: HALOPERIDOL LACTATE 5 MG/ML VIAL IM STA (05:20)
== END 2024-12-02 06:58 | disposition left against medical advice (07) ==
LOC: M ED 04:00
DX: R10.9 Unspecified abdominal pain (principal); R11.2 Nausea with vomiting, unspecified; F19.10 Other psychoactive substance abuse, uncomplicated; F10.10 Alcohol abuse, uncomplicated; B19.9 Unspecified viral hepatitis without hepatic coma; Z79.899 Other long term (current) drug therapy; Z53.9 Procedure and treatment not carried out, unspecified reason
CPT/HCPCS: 80053; 83605; 83690; 85025; 96372; 99284; J1630

== ENCOUNTER 2024-12-16 01:19 | Emergency (ER) | payer BC, MEDICAID, SELFPAY ==
[~2024-12-16] VITALS: Ht 154.9 cm; Wt 42.0 kg
[2024-12-16 02:47] LABS: BASO # 0.0 10^3/uL (0.0-0.2); BASO % 0.1 % (0.0-1.0); EOS # 0.0 10^3/uL (0.0-0.5); EOS % 0.1 % (0.0-3.0); LYMPH # 1.3 10^3/uL (1.5-5.0); LYMPH % 16.4 % (24.0-44.0); MONO # 0.5 10^3/uL (0.0-0.8); MONO % 6.3 % (2.0-8.0); NEUTROPHILS # 5.9 10^3/uL (1.5-8.5); NEUTROPHILS % 77.0 % (36.0-66.0); PLATELET COUNT, AUTOMATED 480 10^3/uL (150-450)
[2024-12-16 03:24] LABS: ETHYL ALCOHOL (ETHANOL) < 0.003 % (0.000-0.010)
[2024-12-16 03:25] LABS: SALICYLATE LEVEL < 3.0 MG/DL (<30)
[2024-12-16 03:26] LABS: ALT/SGPT 17 U/L (7.0-40); AST/SGOT 27 U/L (<34); CALCIUM LEVEL 9.9 MG/DL (8.5-10.1); CARBON DIOXIDE LEVEL 22 MMOL/L (20-31); CHLORIDE LEVEL 106 MMOL/L (98-107); CREATININE FOR GFR 0.47 MG/DL (0.55-1.30); GLOMERULAR FILTRATION RATE > 90.0 (>60); POTASSIUM SERUM 4.1 MMOL/L (3.5-5.1); SODIUM LEVEL 142 MMOL/L (136-145)
[2024-12-16 07:54] LABS: HCG, SERUM QUALITATIVE NEGATIVE (NEGATIVE)
[2024-12-16] MEDS: ONDANSETRON 4MG ORAL DISINTEGRATING TAB PO ONE (10:44)
[2024-12-16] MEDS ORDERED: HOME MED LIST COMPLETE! XX SCH (12:15)
[2024-12-16] MEDS: METHADONE 10 MG TAB PO ONE (12:31)
[2024-12-16 15:32] LABS: AMPHETAMINES LEVEL URINE NEGATIVE (NEGATIVE); BARBITURATES URINE NEGATIVE (NEGATIVE); BENZODIAZEPINES URINE NEGATIVE (NEGATIVE); COCAINE METABOLITE URINE NEGATIVE (NEGATIVE); PHENCYCLIDINE URINE NEGATIVE (NEGATIVE)
[2024-12-16 15:40] LABS: CANNABINOIDS URINE POSITIVE (NEGATIVE); METHADONE URINE POSITIVE (NEGATIVE); OPIATES URINE POSITIVE (NEGATIVE)
[2024-12-16] MEDS: OVERDOSE RESCUE KIT XX SCH (16:41)
[2024-12-16 16:47] VITALS: BP 114/63; TEMP 98.9; O2SAT 97
== END 2024-12-16 16:49 | disposition home or self-care (01) ==
LOC: M ED 01:19
DX: F19.14 Other psychoactive substance abuse with psychoactive substance-induced mood disorder (principal); F32.A Depression, unspecified; F41.9 Anxiety disorder, unspecified; Z79.899 Other long term (current) drug therapy
CPT/HCPCS: 36415; 70450; 80048; 80076; 80143; 80307; 82077; 83690; 84443; 84484; 84703; 85025; 93005; 93041; 96372; 99285; J2765; S0109

== ENCOUNTER 2024-12-20 23:57 | Emergency (ER) | payer SELFPAY ==
[~2024-12-20] VITALS: Ht 157.5 cm; Wt 43.0 kg
[2024-12-21 01:45] LABS: PLATELET COUNT, AUTOMATED 507 10^3/uL (150-450)
[2024-12-21 01:56] LABS: ALT/SGPT 10 U/L (7.0-40); AST/SGOT 19 U/L (<34); CALCIUM LEVEL 9.0 MG/DL (8.5-10.1); CARBON DIOXIDE LEVEL 25 MMOL/L (20-31); CHLORIDE LEVEL 103 MMOL/L (98-107); CREATININE FOR GFR 0.54 MG/DL (0.55-1.30); GLOMERULAR FILTRATION RATE > 90.0 (>60); POTASSIUM SERUM 3.6 MMOL/L (3.5-5.1); SALICYLATE LEVEL < 3.0 MG/DL (<30); SODIUM LEVEL 140 MMOL/L (136-145)
[2024-12-21 03:33] LABS: ETHYL ALCOHOL (ETHANOL) 0.004 % (0.000-0.010)
[2024-12-21 07:19] LABS: CK-MB VALUE MASS 1.4 NG/ML (<3.6)
[2024-12-21 07:36] LABS: CPK CREATINE PHOSPHOKINASE 41 U/L (34-145); MB/CK RELATIVE INDEX 3.41 (< OR =4)
[2024-12-21 09:43] LABS: AMPHETAMINES LEVEL URINE NEGATIVE (NEGATIVE); BARBITURATES URINE NEGATIVE (NEGATIVE); BENZODIAZEPINES URINE NEGATIVE (NEGATIVE); CANNABINOIDS URINE NEGATIVE (NEGATIVE); COCAINE METABOLITE URINE NEGATIVE (NEGATIVE); OPIATES URINE NEGATIVE (NEGATIVE); PHENCYCLIDINE URINE NEGATIVE (NEGATIVE)
[2024-12-21 09:48] LABS: METHADONE URINE POSITIVE (NEGATIVE)
[2024-12-21 10:19] VITALS: BP 126/82; TEMP 98.2; O2SAT 99
== END 2024-12-21 10:22 | disposition home or self-care (01) ==
LOC: M ED 23:57 → EDBD 23:57 → M ED 12-21 10:22
DX: F43.0 Acute stress reaction (principal); B19.20 Unspecified viral hepatitis C without hepatic coma; F17.200 Nicotine dependence, unspecified, uncomplicated; F19.10 Other psychoactive substance abuse, uncomplicated; Z79.899 Other long term (current) drug therapy

== ENCOUNTER 2025-02-25 09:59 | Inpatient (IN) | payer MEDICAID ==
[~2025-02-25] VITALS: Ht 154.9 cm; Wt 42.7 kg
[2025-02-25] MEDS: NS 0.9% IV STA (10:56)
[2025-02-25] MEDS: [UNRECOGNIZED DRUG - OTHER] IV STA (10:56)
[2025-02-25] MEDS: HALOPERIDOL LACTATE 5 MG/ML VIAL IV ONE (10:56)
[2025-02-25] MEDS ORDERED: HOME MED LIST COMPLETE! XX SCH (11:00)
[2025-02-25 11:28] LABS: KETONE, URINE AUTO RFX 2+ mg/dL (NEGATIVE); LEUKOCYTE ESTERASE UR AUTO RFX NEGATIVE (NEGATIVE); MUCUS, URINE RFX SMALL (NEGATIVE); RBC, URINE AUTO RFX 1 /HPF (0-3); SQUAM EPITHELIAL CELL UR AURFX 1 /HPF (0-6); WBC, URINE AUTO RFX 1 /HPF (0-3)
[2025-02-25 11:29] LABS: NITRITE, URINE AUTO RFX POSITIVE (NEGATIVE)
[2025-02-25 12:24] LABS: BASO # 0.0 10^3/uL (0.0-0.2); BASO % 0.1 % (0.0-1.0); EOS # 0.0 10^3/uL (0.0-0.5); EOS % 0.0 % (0.0-3.0); LYMPH # 1.8 10^3/uL (1.5-5.0); LYMPH % 10.4 % (24.0-44.0); MONO # 1.3 10^3/uL (0.0-0.8); MONO % 7.5 % (2.0-8.0); NEUTROPHILS # 14.5 10^3/uL (1.5-8.5); NEUTROPHILS % 81.7 % (36.0-66.0); PLATELET COUNT, AUTOMATED 592 10^3/uL (150-450); VENOUS BASE EXCESS 1.4 (-2.0-2.0); VENOUS HCO3 24.9 MMOL/L (23.0-27.0); VENOUS O2 SATURATION 84.9 % (60.0-80.0); VENOUS PARTIAL PRESSURE CO2 36.2 mmHg (38.0-50.0); VENOUS PARTIAL PRESSURE O2 46.8 mmHg (30.0-50.0); VENOUS PH 7.455 UNITS (7.330-7.430); VENOUS STANDARD HCO3 25.3 MMOL/L; VENOUS TOTAL CO2 26.0 MMOL/L (24.0-28.0)
[2025-02-25 12:43] LABS: INR 1.08
[2025-02-25 12:53] LABS: ETHYL ALCOHOL (ETHANOL) < 0.003 % (0.000-0.010)
[2025-02-25 12:54] LABS: C REACTIVE PROTEIN QUANTITATIV < 0.50 MG/DL (<1.0); SALICYLATE LEVEL < 3.0 MG/DL (<30)
[2025-02-25] MEDS: PIPERACILLIN/TAZOBACTAM SOD 4.5 GM in DEXTROSE 5% (D5W) ADV/MINI-BAG 50 ML IV ONE (13:04)
[2025-02-25 13:20] LABS: AMPHETAMINES LEVEL URINE NEGATIVE (NEGATIVE); BARBITURATES URINE NEGATIVE (NEGATIVE); BENZODIAZEPINES URINE NEGATIVE (NEGATIVE); CANNABINOIDS URINE NEGATIVE (NEGATIVE); COCAINE METABOLITE URINE NEGATIVE (NEGATIVE); PHENCYCLIDINE URINE NEGATIVE (NEGATIVE)
[2025-02-25 13:21] LABS: HIV 1&2 SCREEN NEGATIVE (NEGATIVE)
[2025-02-25 13:24] LABS: HCG, SERUM QUALITATIVE NEGATIVE (NEGATIVE)
[2025-02-25 13:26] LABS: METHADONE URINE POSITIVE (NEGATIVE); OPIATES URINE POSITIVE (NEGATIVE)
[2025-02-25 13:27] LABS: ALT/SGPT 21 U/L (7.0-40); AST/SGOT 28 U/L (<34); CALCIUM LEVEL 10.2 MG/DL (8.5-10.1); CARBON DIOXIDE LEVEL 25 MMOL/L (20-31); CHLORIDE LEVEL 103 MMOL/L (98-107); CPK CREATINE PHOSPHOKINASE 90 U/L (34-145); CREATININE FOR GFR 0.67 MG/DL (0.55-1.30); GLOMERULAR FILTRATION RATE > 90.0 (>60); MAGNESIUM LEVEL 2.8 MG/DL (1.8-2.4); POTASSIUM SERUM 3.3 MMOL/L (3.5-5.1); SODIUM LEVEL 145 MMOL/L (136-145)
[2025-02-25] MEDS ORDERED: OVERDOSE RESCUE KIT XX SCH (14:00)
[2025-02-25] MEDS: VANCOMYCIN HCL 1,000 MG, VIAL MATE ADAPTER 1 EACH in NS 250 ML IV ONE (14:18)
[2025-02-25] MEDS ORDERED: ACETAMINOPHEN 1000MG/100ML IV BAG As Ordered ONE (16:31)
[2025-02-25] MEDS: ACETAMINOPHEN *IV* 500 MG in IV 1 EA IV ONE (16:45)
[2025-02-26] MEDS: ONDANSETRON 4MG ORAL DISINTEGRATING TAB PO ONE (01:38)
[2025-02-26] MEDS: CEFUROXIME 500 MG TAB PO SCH (01:40)
[2025-02-26] MEDS: PROMETHAZINE 25MG SUPP PR ONE (11:41)
[2025-02-26] MEDS ORDERED: MAALOX 30 ML SUSP *UDC PO PRN (12:45)
[2025-02-26] MEDS ORDERED: MOM 30 ML SUSPENSION UDC PO PRN (12:45)
[2025-02-26] MEDS: IBUPROFEN 400 MG TAB PO PRN (16:30)
[2025-02-26 16:41] VITALS: BP 122/74; TEMP 99; O2SAT 99
[2025-02-26] MEDS: METHADONE 10 MG TAB PO ONE (17:04)
[2025-02-26 17:51] VITALS: BP 114/70; TEMP 98.9; O2SAT 98
[2025-02-26] MEDS: ONDANSETRON 4MG ORAL DISINTEGRATING TAB PO PRN (22:51)
[2025-02-27 06:34] VITALS: BP 145/90; TEMP 98.1; O2SAT 98
[2025-02-27] MEDS: METHADONE 10 MG TAB PO SCH (08:00)
[2025-02-27 15:37] VITALS: BP 145/89; TEMP 98.9; O2SAT 95
[2025-02-27 21:00] VITALS: BP 126/88; TEMP 99.5; O2SAT 97
[2025-02-27] MEDS: ACETAMINOPHEN 325 MG TAB PO PRN (21:20)
[2025-02-27] MEDS: traZODone 50 MG TAB PO PRN (21:21)
[2025-02-28 03:20] LABS: BASO # 0.0 10^3/uL (0.0-0.2); BASO % 0.3 % (0.0-1.0); EOS # 0.1 10^3/uL (0.0-0.5); EOS % 0.9 % (0.0-3.0); LYMPH # 1.8 10^3/uL (1.5-5.0); LYMPH % 23.7 % (24.0-44.0); MONO # 0.7 10^3/uL (0.0-0.8); MONO % 8.7 % (2.0-8.0); NEUTROPHILS # 5.1 10^3/uL (1.5-8.5); NEUTROPHILS % 66.1 % (36.0-66.0); PLATELET COUNT, AUTOMATED 406 10^3/uL (150-450)
[2025-02-28 04:00] LABS: CALCIUM LEVEL 8.4 MG/DL (8.5-10.1); CARBON DIOXIDE LEVEL 28 MMOL/L (20-31); CHLORIDE LEVEL 98 MMOL/L (98-107); CREATININE FOR GFR 0.59 MG/DL (0.55-1.30); GLOMERULAR FILTRATION RATE > 90.0 (>60); MAGNESIUM LEVEL 2.6 MG/DL (1.8-2.4); POTASSIUM SERUM 2.6 MMOL/L (3.5-5.1); SODIUM LEVEL 139 MMOL/L (136-145)
[2025-02-28] MEDS: POTASSIUM CHLORIDE 10% LIQ 20MEQ/15ML UDC PO ONE (04:05)
[2025-02-28] MEDS ORDERED: PROMETHAZINE 25MG SUPP PR PRN (06:00)
[2025-02-28 06:47] VITALS: BP 140/87; TEMP 98.9; O2SAT 99
[2025-02-28] MEDS ORDERED: CEFU50TA PO (10:15)
== END 2025-02-28 13:40 | disposition other institution (70) | DRG 754 ==
LOC: M ED 09:59 → M ED INP 20:12 → UNDOADMIN 20:12 → M ED INP 02-26 12:43 → M PSY 02-26 15:45
PROVIDERS: ADMIT Psychiatry & Neurology Addiction Psychiatry; ATTEND Psychiatry & Neurology Addiction Psychiatry
DX: F32.A Depression, unspecified (principal); R45.851 Suicidal ideations; F11.10 Opioid abuse, uncomplicated

== ENCOUNTER 2025-02-28 12:16 | Observation (INO) | payer MEDICAID, OTHER ==
[~2025-02-28] VITALS: Ht 154.9 cm; Wt 43.0 kg
[~2025-02-28 12:16] MED LIST changes: +CEFU50TA PO
[2025-02-28] MEDS ORDERED: traZODone 50 MG TAB PO PRN (12:25)
[2025-02-28 14:00] VITALS: BP 118/86; TEMP 98.6; O2SAT 98
[2025-02-28] MEDS: KCL 40MEQ IN D5/NS 1000ML 1,000 ML IV SCH (15:54)
[2025-02-28 19:46] VITALS: BP 115/73; TEMP 98.2; O2SAT 96
[2025-02-28] MEDS: CEFUROXIME 500 MG TAB PO SCH (21:00)
[2025-02-28] MEDS: SCOPOLAMINE 1MG TRANSDERMAL PATCH TOP ONE (22:25)
[2025-02-28 22:56] LABS: CALCIUM LEVEL 8.3 MG/DL (8.5-10.1); CARBON DIOXIDE LEVEL 27 MMOL/L (20-31); CHLORIDE LEVEL 104 MMOL/L (98-107); CREATININE FOR GFR 0.57 MG/DL (0.55-1.30); GLOMERULAR FILTRATION RATE > 90.0 (>60); POTASSIUM SERUM 3.5 MMOL/L (3.5-5.1); SODIUM LEVEL 142 MMOL/L (136-145)
[2025-03-01 03:26] VITALS: BP 130/88; TEMP 98; O2SAT 97
[2025-03-01 07:20] LABS: PLATELET COUNT, AUTOMATED 460 10^3/uL (150-450)
[2025-03-01 07:44] LABS: CALCIUM LEVEL 8.4 MG/DL (8.5-10.1); CARBON DIOXIDE LEVEL 27 MMOL/L (20-31); CHLORIDE LEVEL 103 MMOL/L (98-107); CREATININE FOR GFR 0.56 MG/DL (0.55-1.30); GLOMERULAR FILTRATION RATE > 90.0 (>60); POTASSIUM SERUM 3.0 MMOL/L (3.5-5.1); SODIUM LEVEL 141 MMOL/L (136-145)
[2025-03-01 08:20] VITALS: BP 128/82; TEMP 97.9; O2SAT 97
[2025-03-01] MEDS: ENOXAPARIN 30 MG/0.3 ML SYRINGE (J1650 PER 10MG) SC SCH (08:36)
[2025-03-01] MEDS: METHADONE 10 MG TAB PO SCH (08:36)
[2025-03-01] MEDS: POTASSIUM CHLORIDE 10MEQ SR TABLET PO ONE (10:23)
[2025-03-01] MEDS: KCL 40MEQ in NS 1000ML 1,000 ML IV SCH (12:14)
== END 2025-03-01 15:18 | disposition left against medical advice (07) ==
LOC: PREINTOOBSV 12:23 → M PCU 13:00
PROVIDERS: ADMIT Internal Medicine; ATTEND Internal Medicine
DX: E87.6 Hypokalemia (principal); Z53.21 Procedure and treatment not carried out due to patient leaving prior to being seen by health care provider; D72.829 Elevated white blood cell count, unspecified; D69.6 Thrombocytopenia, unspecified; J06.9 Acute upper respiratory infection, unspecified; F11.20 Opioid dependence, uncomplicated; Z79.2 Long term (current) use of antibiotics; Z79.891 Long term (current) use of opiate analgesic; R11.2 Nausea with vomiting, unspecified
CPT/HCPCS: 36415; 80048; 85027; 93005; 96360; 96372; J1650; S0109